=== PATIENT | male | born 2000 | race Caucasian/White ===

== ENCOUNTER → 2021-03-31 15:31 | Outpatient (CLI) | payer OTHER, SELFPAY ==
--- NOTE | 2021-03-31 | DI.RAD.S_ITS ---
PROCEDURE: XR TIBIA FIBULA LT 2V INDICATIONS: PAIN TECHNIQUE: 2 views of the tibia and fibula were acquired. COMPARISON: None. FINDINGS: Bones: No fractures or dislocations. No suspicious bony lesions. Soft tissues: No suspicious soft tissue calcifications or masses. IMPRESSION: No visualized acute fracture or dislocation. However, if clinical concern and/or pain persist, short interval imaging followup in 7-10 days is recommended, as occult injury cannot be definitively excluded. Dictated by: Cassie Castro M.D. on 03/31/2021 at 20:58 Approved by: Cassie Castro M.D. on 03/31/2021 at 20:59
== END ==
PROVIDERS: PCP Family Medicine; Referring Provider Family Medicine; Visit Provider Family Medicine
DX: M79.605 Pain in left leg (principal)
CPT/HCPCS: 73590

== ENCOUNTER → 2021-04-13 17:21 | Outpatient (CLI) | payer OTHER, SELFPAY ==
[2021-04-13 18:28] LABS: D Dimer 225 ng/mL (<230)
== END ==
PROVIDERS: PCP Family Medicine; Referring Provider Student in an Organized Health Care Education/Training Program; Visit Provider Student in an Organized Health Care Education/Training Program
DX: M79.605 Pain in left leg (principal)
CPT/HCPCS: 36415; 85379

== ENCOUNTER → 2023-05-24 16:21 | Outpatient (CLI) | payer BC, SELFPAY ==
--- NOTE | 2023-05-24 16:25 | DI.RAD.S_ITS ---
PROCEDURE: XR LUMBAR SPINE MIN 4V INDICATIONS: left back pain TECHNIQUE: 5 views of the lumbar spine were acquired, including bilateral oblique views. COMPARISON: None. FINDINGS: Bones: 5 nonrib-bearing vertebrae are present. Slight levoconvex curvature of the lumbar spine centered at L3. No vertebral body compression fractures. No suspicious bony lesions. Soft tissues: Overlying bowel gas pattern is normal. No suspicious soft tissue calcifications. Oblique images: No pars defects. IMPRESSION: 1. No acute bony abnormality. If clinical symptoms persist, consider cross-sectional imaging for further evaluation. 2. No significant degenerative changes. Dictated by: Kim Hawk M.D. on 05/24/2023 at 18:10 Approved by: Kim Hawk M.D. on 05/24/2023 at 18:12
== END ==
PROVIDERS: PCP Family Medicine; Referring Provider Family Medicine; Visit Provider Family Medicine
DX: M54.50 Low back pain, unspecified (principal); G89.29 Other chronic pain
CPT/HCPCS: 72110

== ENCOUNTER 2023-09-14 07:30 | Outpatient (RCR) | payer OTHER, SELFPAY ==
--- NOTE | 2023-07-04 15:30 | PT.OIE ---
Current Diagnoses Other lack of coordination (07/06/23) Weakness (07/06/23) Strain of muscle, fascia and tendon of lower back, initial encounter (07/06/23) Strain of muscle, fascia and tendon of lower back, subsequent encounter (07/06/23) Visit Care Team Role Provider Type Rome Lucas MD Attending Provider Physician Family Provider Primary Care Provider Referring Provider Specialty: Family Practice Address: [address] [place] [address], [facility] Email: [email or web address] Physical Therapy Initial Evaluation PT-OP-A Visit Information Start: 07/05/23 09:26 Freq: Status: Active Protocol: Document 07/04/23 07:30 NM (Rec: 07/05/23 09:42 NM [id number]) Out-Patient Physical Therapy Visit Information Visit Information Visit Type Initial Evaluation Visit Note 12 visits Visit Start Time 07:30 Visit Stop Time 08:15 Visit Number 1 Evaluation Information Evaluation Date 07/04/23 PT-OP-B Current Condition Start: 07/05/23 09:26 Freq: Status: Active Protocol: Document 07/04/23 07:30 NM (Rec: 07/05/23 09:42 NM [id number]) Current Condition History of Current Condition Onset Date March 2023 Current Complaints pain, movement limits History of Current Condition Pt presents with a work injury from mid2023. He states that the injury was low back pain then now radiates from L side of hip to ankle. He had a muscle relaxer and a steroid, which helped. He has pain mostly after walking around or putting pressure on his L thigh. States that back pain is primarily gone, but his leg pain is the most problematic (resolved in 3.5 weeks). Pt was injured when lifting from a crouched position, hit his back against rudder and shifted his weight on his back; he felt pain immediately and dropped to the ground; he continued working. 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 For his job , he needs to be able to crouch (move small spaces), flexibility, lifting heavy objects (130-150#). He has pain with extending his leg from hip flexion. Prior Treatments and Tests Radiographs 05/2023: no acute bony abnormalities or degenerative changes Treatment Goals Patient/Caregiver Goals work w/o pain Current Functional Impairments (Reported) Functional Limitations- Mobility/Gait 2-3 hr walking Functional Limitations- Work/School 8-10 hrs for 5 days/wk Functional Limitations- Recreation/ unable to perform leg workouts Hobbies (cardio ok)- strength training (leg press, calf raises, leg extension) after a specific weight and reps, 3x/ wk; currently unable to workout Functional Limitations- Other Reports 80-85% unable to perform normal activities at worst PT-OP-C Subjective Start: 07/05/23 09:26 Freq: Status: Active Protocol: Document 07/04/23 07:30 NM (Rec: 07/05/23 09:42 NM [id number]) OP-PT Subjective Patient Comments Patient Comments see hx above for pt report Patient Questionnaires Oswestry Low Back Index Oswestry Score 50 OP-PT Pain Assessment Location back Pain Location Details glute (lateral), L ankle ( lateral), L sided LBP Intensity 3 Scale Used Numeric (0 - 10) Description Aching Description- Other glute-achy, lateral ankle ( shooting) Frequency Frequent Radiating Location to leg and ankle Pain Aggravating Factors Position,Activity,Walking 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, IR w/ turning and pressure Pain Alleviating Factors Medication Patient Stated Pain Goal workout w/o pain, return to work w/o pain Home Pain Medication Use Pain Medications Used Yes: tylenol, muscle relaxer, migraine meds Home Pain Medication Frequency 1-2x/day PT-OP-E Functional Tests Start: 07/05/23 09:26 Freq: Status: Active Protocol: Document 07/04/23 07:30 NM (Rec: 07/05/23 09:42 NM [id number]) Functional Tests Other Forward Trunk Flexion Test Name of Test measured finger tip to floor Score 10 Comment increase in symptoms down legs PT-OP-F Manual Assessment Start: 07/05/23 09:26 Freq: Status: Active Protocol: Document 07/04/23 07:30 NM (Rec: 07/05/23 09:42 NM [id number]) Manual Assessments Soft Tissue Assessment Soft Tissue Mobility Assessment Increased hamstring tightness. Decreased hip flexor length. Increased tenderness of L hip and calf Joint Mobility Assessment Joint Mobility Assessment Hypomobility of lumbar spine, slight L deviation of lumbar spine. Limited hip mobility into flexion, decreased B ankle DF PT-OP-G Mobility & Gait Start: 07/05/23 09:26 Freq: Status: Active Protocol: Document 07/04/23 07:30 NM (Rec: 07/05/23 09:42 NM [id number]) OP Gait Assessment Gait Gait Assistance Required: Independent Distance (Feet) 150 Gait Deviations General Gait Pattern Antalgic,Lateral Trunk Lean Factors Limiting Gait Function Factors Limiting Gait Function Decreased Activity Tolerance, Limited Range of Motion,Pain Comments Gait Comments Demos R lateral trunk lean PT-OP-H Neuro Start: 07/05/23 09:26 Freq: Status: Active Protocol: Document 07/04/23 07:30 NM (Rec: 07/05/23 09:42 NM [id number]) Sensation Evaluation Comments Summary Comments BLE intact equally to light touch sensation Deep Tendon Reflex & Clonus Assessment Deep Tendon Reflex Bilateral Achilles Deep Tendon Reflex 1+ Diminished Bilateral Patellar Deep Tendon Reflex 2+ Normal PT-OP-J Posture/Palpation/Skin Start: 07/05/23 09:26 Freq: Status: Active Protocol: Document 07/04/23 07:30 NM (Rec: 07/05/23 09:42 NM [id number]) Posture Evaluation Position Standing Head/C-Spine Posture Forward Head L-Spine Posture Increased Lordosis,Shifted Right Pelvis Posture Anteriorly Tilted Weight Distribution Weight Shifted Right Hip Posture (L) Externally Rotated,(R) Externally Rotated Knee Posture (L) Genu Varus,(R) Genu Varus Palpation Assessment Location lumbar spine Palpation Findings Soft Tissue Tightness, Tenderness Palpation Details tenderness along L lateral spine, tightness of L lateral paraspinals No tenderness along midline spine Slight L deviation from midline along spine near L3 L leg Palpation Findings Edema,Tenderness Palpation Details tenderness along L calf in muscle belly tenderness along L glute/ piriformis, lateral hip PT-OP-K Range of Motion Start: 07/05/23 09:26 Freq: Status: Active Protocol: Document 07/04/23 07:30 NM (Rec: 07/05/23 09:42 NM [id number]) Lumbar Spine Range of Motion Lumbar Spine Active Percentage Flexion 75 Extension 100 Rotation Left 10 Rotation Right 6 Lateral Flexion Left 100 Lateral Flexion Right 100 ROM Limitations Soft Tissue Tightness Comments 10; tightness along L lateral leg with flexion Hip Goniometric Range of Motion Hip Left Flexion w/Knee Flexed 110 Internal Rotation 30 External Rotation 30 Comments 140 deg hamstring length Right Flexion w/Knee Flexed 105 Internal Rotation 25 External Rotation 35 Comments 140 deg hamstring length Ankle and Foot Goniometric Range of Motion Ankle and Foot Right Dorsiflexion with Knee Flexed 10 Plantarflexion 40 Left Dorsiflexion with Knee Flexed 8 Plantarflexion 40 PT-OP-L Special Tests Start: 07/05/23 09:26 Freq: Status: Active Protocol: Document 07/04/23 07:30 NM (Rec: 07/05/23 09:42 NM [id number]) Special Tests Lumbar Spine Special Tests Brice/Quadrant Test Results + Comments R 3D reproduces to L side Distraction Test Results + Slump Test Results + Comments bilateral Straight Leg Raise Test Results + Comments bilateral PT-OP-M Strength Start: 07/05/23 09:26 Freq: Status: Active Protocol: Document 07/04/23 07:30 NM (Rec: 07/05/23 09:42 NM [id number]) Trunk Strength Trunk Manual Muscle Testing Flexion 4+ Good+ Extension 4 Good Rotation Left 5 Normal Rotation Right 5 Normal Lateral Flexion Left 5 Normal Lateral Flexion Right 5 Normal Core Stabilization plank: 10 sec side plank B: 8 sec No pain reproduced but difficulty with stabilization Hip Strength Hip Manual Muscle Testing Left Flexion (L2) 4+ Good+ Extension (S1) 4 Good Abduction 4- Good- Adduction 4+ Good+ External Rotation 4+ Good+ Internal Rotation 4+ Good+ Comments IR resisted reproduces Right Flexion (L2) 4+ Good+ Extension (S1) 5 Normal Abduction 5 Normal Adduction 5 Normal External Rotation 5 Normal Internal Rotation 4+ Good+ Knee Strength Knee Manual Muscle Testing Left Flexion (S2) 5 Normal Extension (L3) 5 Normal Right Flexion (S2) 4+ Good+ Extension (L3) 4+ Good+ Ankle/Foot Strength Ankle and Foot Manual Muscle Testing Left Dorsiflexion (L4) 4 Good Plantarflexion (S1) 4 Good Right Dorsiflexion (L4) 4+ Good+ Plantarflexion (S1) 4+ Good+ PT-OP-Q Treatments Start: 07/05/23 09:26 Freq: Status: Active Protocol: Document 07/04/23 07:30 NM (Rec: 07/05/23 09:42 NM [id number]) Therapeutic Exercises Supine Exercises lumbar distraction Supine Exercise Name supine 90/90 with legs elevated bolster during pt education Side bilateral Reps/Minutes 8 minutes Self-Care/Home Management Treatment Education Patient Education Joint Protection,Pain Management Other Education Education on anatomy of spine, arthrokinematics, and symptom presentation. Education on spinal protection, limiting stretching due to nerve irritation, modalities and soft tissue mobilization for pain reduction PT-OP-T Assessment and Plan Start: 07/05/23 09:26 Freq: Status: Active Protocol: Document 07/04/23 07:30 NM (Rec: 07/05/23 09:42 NM [id number]) Physical Therapy Assessment Rehab Potential Rehabilitation Potential Good Evaluation Complexity Number of Personal Factors/Comorbidities 1-2 Number of Body Systems Impaired 1-2 Clinical Presentation at Evaluation Stable Impairments Impairments Activity Tolerance,Balance, Functional Activities, Functional Mobility,Gait,Pain, Posture,ROM,Sensation,Soft Tissue Mobility,Strength Goals Six Impairment return to work Short Term Goal (STG) Pt will report that he is able to perform at least 50% of job functions without increase in baseline pain STG Duration 6 weeks 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 STG Duration 6 weeks 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 Automatic Goal (LTG) Pt will be able to reach < 6 from the ground during forward trunk flexion test in order to demonstrate improvement in hamstring length and decrease neural tension. LTG Duration 12 weeks Four Impairment squats Impairment difficulty with maintaining squat position at work due to pain Short Term Goal (STG) Pt will be able to perform at least 10 squats without compensation or increase in baseline pain in order to perform necessary job requirements STG Duration 6 weeks Shelter Goal (LTG) Pt will be able to perform at least 20 squats with resistance and without compensation or increase in baseline pain in order to perform necessary job requirements LTG Duration 12 weeks Three Impairment strength Impairment L hip ext 4/5 and abd 4-/5 MMT Short Term Goal (STG) Pt will improve L hip ext and abduction strength to at least 4+/5 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 STG Duration 6 weeks 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 Automatic Goal (LTG) Pt will improve L hip ext and abduction strength to at least 5/5 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 LTG Duration 12 weeks Two Impairment strength, stabilization Impairment plank 8 seconds side plank, 10 seconds front plank on elbows Short Term Goal (STG) Pt will be able to perform a plank (full or modified) for at least 45 seconds without signs of instability or increase in baseline pain in order to demonstrate improved core strength for ADLs and work STG Duration 6 weeks 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 Automatic Goal (LTG) Pt will be able to perform a plank (full or modified) for at least 60 seconds without signs of instability or increase in baseline pain in order to demonstrate improved core strength for ADLs and work LTG Duration 12 weeks One Impairment HEP Impairment not performing HEP Short Term Goal (STG) Pt will report that he is performing HEP at least 2-3x/ wk in order to maximize progression with PT and promote independence with rehabilitation. 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 LTG Duration 12 weeks Assessment Summary Assessment Pt is a 23 y.o. male presenting with low back pain and L sided pain radiating down the LLE. Pain is likely discogenic and he also likely has nerve root involvement of L5-S1. He has positive Brice/ quadrant test, slump and straight leg raise. Symptoms are reduced with distraction. Pt has limitations in trunk flexion ROM. He is able to stabilize his trunk against resistance, but he demonstrates poor core stabilization. Currently, pt only able to hold plank for 8- 10 seconds without pain. Pt has increased tightness of B paraspinals and L glute/ piriformis. He has tenderness to palpation just lateral to midline of spine. Recent radiographs normal. PT educated pt on exam findings and plan of care. PT also educated pt on joint protection and pain reducation strategy with lumbar distraction, which pt found helpful. Pt would benefit from skilled PT for body mechanics training, flexibility training, and symptom reduction in order to improve activity tolerance. Physical Therapy Plan Frequency and Duration Frequency of Treatment 1-2x/wk Duration of treatment (weeks) 12 Plan of Care Start Date 07/04/23 Plan of Care End Date 09/29/23 Therapeutic Interventions Therapeutic Interventions Balance Training,Gait Training ,Home Exercise Program,Joint Mobilizations,Manual Therapy, Neuromuscular Re-education, Orthotic/Prosthetic Management ,Patient/Caregiver Education, Self-Care/Home Management, Sensory Integration,Soft Tissue Mobilization,Taping, Therapeutic Activities, Therapeutic Exercises Modalities Cold Pack/Ice Massage,Electric Stimulation,Hot Packs, Traction- Mechanical, Ultrasound Other Therapeutic Interventions pelvic realignment Next Visit Focus/Plan Next Visit Plan stretching: alfie, nerve glide, quad stretch, hip ER, calf stretch, core manual: low back, glutes
--- NOTE | 2023-07-06 12:56 | PT.OTN ---
Current Diagnoses Other lack of coordination (07/06/23) Weakness (07/06/23) Strain of muscle, fascia and tendon of lower back, initial encounter (07/06/23) Strain of muscle, fascia and tendon of lower back, subsequent encounter (07/06/23) Physical Therapy Treatment Note PT-OP-A Visit Information Start: 07/05/23 09:26 Freq: Status: Active Protocol: Document 07/06/23 07:31 NM (Rec: 07/06/23 08:16 NM [id number]) Out-Patient Physical Therapy Visit Information Visit Information Visit Type Treatment Note Visit Note 12 visits Visit Start Time 07:34 Visit Stop Time 08:15 Visit Number 04/03 Evaluation Information Evaluation Date 07/04/23 PT-OP-B Current Condition Start: 07/05/23 09:26 Freq: Status: Active Protocol: Document 07/04/23 07:30 NM (Rec: 07/05/23 09:42 NM [id number]) Current Condition History of Current Condition Onset Date March 2023 Current Complaints pain, movement limits History of Current Condition Pt presents with a work injury from [facility]2023. He states that the injury was low back pain then now radiates from L side of hip to ankle. He had a muscle relaxer and a steroid, which helped. He has pain mostly after walking around or putting pressure on his L thigh. States that back pain is primarily gone, but his leg pain is the most problematic (resolved in 3.5 weeks). Pt was injured when lifting from a crouched position, hit his back against rudder and shifted his weight on his back; he felt pain immediately and dropped to the ground; he continued working. 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 For his job , he needs to be able to crouch (move small spaces), flexibility, lifting heavy objects (130-150#). He has pain with extending his leg from hip flexion. Prior Treatments and Tests Radiographs 05/2023: no acute bony abnormalities or degenerative changes Treatment Goals Patient/Caregiver Goals work w/o pain Current Functional Impairments (Reported) Functional Limitations- Mobility/Gait 2-3 hr walking Functional Limitations- Work/School 8-10 hrs for 5 days/wk Functional Limitations- Recreation/ unable to perform leg workouts Hobbies (cardio ok)- strength training (leg press, calf raises, leg extension) after a specific weight and reps, 3x/ wk; currently unable to workout Functional Limitations- Other Reports 80-85% unable to perform normal activities at worst PT-OP-C Subjective Start: 07/05/23 09:26 Freq: Status: Active Protocol: Document 07/06/23 07:31 NM (Rec: 07/06/23 08:16 NM [id number]) OP-PT Subjective Patient Comments Patient Comments Pt reports no changes since evaluation. States no low back pain, only tightness in low back and legs. PT-OP-E Functional Tests Start: 07/05/23 09:26 Freq: Status: Active Protocol: Document 07/04/23 07:30 NM (Rec: 07/05/23 09:42 NM [id number]) Functional Tests Other Forward Trunk Flexion Test Name of Test measured finger tip to floor Score 10 Comment increase in symptoms down legs PT-OP-F Manual Assessment Start: 07/05/23 09:26 Freq: Status: Active Protocol: Document 07/04/23 07:30 NM (Rec: 07/05/23 09:42 NM [id number]) Manual Assessments Soft Tissue Assessment Soft Tissue Mobility Assessment Increased hamstring tightness. Decreased hip flexor length. Increased tenderness of L hip and calf Joint Mobility Assessment Joint Mobility Assessment Hypomobility of lumbar spine, slight L deviation of lumbar spine. Limited hip mobility into flexion, decreased B ankle DF PT-OP-G Mobility & Gait Start: 07/05/23 09:26 Freq: Status: Active Protocol: Document 07/04/23 07:30 NM (Rec: 07/05/23 09:42 NM [id number]) OP Gait Assessment Gait Gait Assistance Required: Independent Distance (Feet) 150 Gait Deviations General Gait Pattern Antalgic,Lateral Trunk Lean Factors Limiting Gait Function Factors Limiting Gait Function Decreased Activity Tolerance, Limited Range of Motion,Pain Comments Gait Comments Demos R lateral trunk lean PT-OP-H Neuro Start: 07/05/23 09:26 Freq: Status: Active Protocol: Document 07/04/23 07:30 NM (Rec: 07/05/23 09:42 NM [id number]) Sensation Evaluation Comments Summary Comments BLE intact equally to light touch sensation Deep Tendon Reflex & Clonus Assessment Deep Tendon Reflex Bilateral Achilles Deep Tendon Reflex 1+ Diminished Bilateral Patellar Deep Tendon Reflex 2+ Normal PT-OP-J Posture/Palpation/Skin Start: 07/05/23 09:26 Freq: Status: Active Protocol: Document 07/04/23 07:30 NM (Rec: 07/05/23 09:42 NM [id number]) Posture Evaluation Position Standing Head/C-Spine Posture Forward Head L-Spine Posture Increased Lordosis,Shifted Right Pelvis Posture Anteriorly Tilted Weight Distribution Weight Shifted Right Hip Posture (L) Externally Rotated,(R) Externally Rotated Knee Posture (L) Genu Varus,(R) Genu Varus Palpation Assessment Location lumbar spine Palpation Findings Soft Tissue Tightness, Tenderness Palpation Details tenderness along L lateral spine, tightness of L lateral paraspinals No tenderness along midline spine Slight L deviation from midline along spine near L3 L leg Palpation Findings Edema,Tenderness Palpation Details tenderness along L calf in muscle belly tenderness along L glute/ piriformis, lateral hip PT-OP-K Range of Motion Start: 07/05/23 09:26 Freq: Status: Active Protocol: Document 07/04/23 07:30 NM (Rec: 07/05/23 09:42 NM [id number]) Lumbar Spine Range of Motion Lumbar Spine Active Percentage Flexion 75 Extension 100 Rotation Left 10 Rotation Right 6 Lateral Flexion Left 100 Lateral Flexion Right 100 ROM Limitations Soft Tissue Tightness Comments 10; tightness along L lateral leg with flexion Hip Goniometric Range of Motion Hip Left Flexion w/Knee Flexed 110 Internal Rotation 30 External Rotation 30 Comments 140 deg hamstring length Right Flexion w/Knee Flexed 105 Internal Rotation 25 External Rotation 35 Comments 140 deg hamstring length Ankle and Foot Goniometric Range of Motion Ankle and Foot Right Dorsiflexion with Knee Flexed 10 Plantarflexion 40 Left Dorsiflexion with Knee Flexed 8 Plantarflexion 40 PT-OP-L Special Tests Start: 07/05/23 09:26 Freq: Status: Active Protocol: Document 07/04/23 07:30 NM (Rec: 07/05/23 09:42 NM [id number]) Special Tests Lumbar Spine Special Tests Brice/Quadrant Test Results + Comments R 3D reproduces to L side Distraction Test Results + Slump Test Results + Comments bilateral Straight Leg Raise Test Results + Comments bilateral PT-OP-M Strength Start: 07/05/23 09:26 Freq: Status: Active Protocol: Document 07/04/23 07:30 NM (Rec: 07/05/23 09:42 NM [id number]) Trunk Strength Trunk Manual Muscle Testing Flexion 4+ Good+ Extension 4 Good Rotation Left 5 Normal Rotation Right 5 Normal Lateral Flexion Left 5 Normal Lateral Flexion Right 5 Normal Core Stabilization plank: 10 sec side plank B: 8 sec No pain reproduced but difficulty with stabilization Hip Strength Hip Manual Muscle Testing Left Flexion (L2) 4+ Good+ Extension (S1) 4 Good Abduction 4- Good- Adduction 4+ Good+ External Rotation 4+ Good+ Internal Rotation 4+ Good+ Comments IR resisted reproduces Right Flexion (L2) 4+ Good+ Extension (S1) 5 Normal Abduction 5 Normal Adduction 5 Normal External Rotation 5 Normal Internal Rotation 4+ Good+ Knee Strength Knee Manual Muscle Testing Left Flexion (S2) 5 Normal Extension (L3) 5 Normal Right Flexion (S2) 4+ Good+ Extension (L3) 4+ Good+ Ankle/Foot Strength Ankle and Foot Manual Muscle Testing Left Dorsiflexion (L4) 4 Good Plantarflexion (S1) 4 Good Right Dorsiflexion (L4) 4+ Good+ Plantarflexion (S1) 4+ Good+ PT-OP-Q Treatments Start: 07/05/23 09:26 Freq: Status: Active Protocol: Document 07/06/23 07:31 NM (Rec: 07/06/23 08:16 NM [id number]) Therapeutic Exercises Supine Exercises TrA Supine Exercise Name 1. abdominal draw up/in, 2. repeated KTC, 3.heel taps from 90/90 alternatin Side bilateral Reps/Minutes 1. 1 minute w/ breathing, 2. 1 minute, 3. 2x10 Comments pain free, challenging w/ heel taps Sitting Exercises nerve glide Sitting Exercise Name w/ head and leg coord DF/PF Side bilateral Reps/Minutes 1x10 Comments increase pulling w/ glide so d /c Standing Exercises pallof Standing Exercise Name 1. pallof walkout, arms ext w/ anti-rot, 2. pallof press w/ squat Side bilateral Resistance lvl 5 and 6 together (4 bands) Reps/Minutes 1. 1x10 ea, 2. 2x15 Comments pain free, medium difficulty; cued for form modified pigeon stretch Standing Exercise Name leg in figure 4 elevated on table, slight trunk flexion Side bilateral Reps/Minutes 1x60 ea Comments reports good feedback with stretch; L more restricted than R calf stretch Standing Exercise Name 1. gastrocnemius, 2. soleus Side bilateral Equipment Used staggered stance at stairs Reps/Minutes 1x60 Comments pain free hip flexor stretch Standing Exercise Name foot elevated on 3rd stair step Side bilateral Reps/Minutes 1x60 Comments cued ppt Other Exercises self soft tissue mobilization Other Exercise Name piriformis, lumbar paraspinals Equipment Used racquetball in pillow case Reps/Minutes 3 minutes Comments MWM for piriformis; tender and restricted, added to HEP Self-Care/Home Management Treatment Education Patient Education Body Mechanics,Home Exercise Program,Pain Management Other Education Education on activity modification during work to prevent remaining in extended positions for periods of time HEP: calf stretch, pigeon stretch in standing, piriformis massage PT-OP-T Assessment and Plan Start: 07/05/23 09:26 Freq: Status: Active Protocol: Document 07/06/23 07:31 NM (Rec: 07/06/23 08:16 NM [id number]) Physical Therapy Assessment Goals Six Impairment return to work Short Term Goal (STG) Pt will report that he is able to perform at least 50% of job functions without increase in baseline pain STG Duration 6 weeks [facility] 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 STG Duration 6 weeks [employer] Goal (LTG) Pt will be able to reach < 6 from the ground during forward trunk flexion test in order to demonstrate improvement in hamstring length and decrease neural tension. LTG Duration 12 weeks Four Impairment squats Impairment difficulty with maintaining squat position at work due to pain Short Term Goal (STG) Pt will be able to perform at least 10 squats without compensation or increase in baseline pain in order to perform necessary job requirements STG Duration 6 weeks [facility] Goal (LTG) Pt will be able to perform at least 20 squats with resistance and without compensation or increase in baseline pain in order to perform necessary job requirements LTG Duration 12 weeks Three Impairment strength Impairment L hip ext 4/5 and abd 4-/5 MMT Short Term Goal (STG) Pt will improve L hip ext and abduction strength to at least 4+/5 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 STG Duration 6 weeks [facility] Goal (LTG) Pt will improve L hip ext and abduction strength to at least 5/5 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 LTG Duration 12 weeks Two Impairment strength, stabilization Impairment plank 8 seconds side plank, 10 seconds front plank on elbows Short Term Goal (STG) Pt will be able to perform a plank (full or modified) for at least 45 seconds without signs of instability or increase in baseline pain in order to demonstrate improved core strength for ADLs and work STG Duration 6 weeks [facility] Goal (LTG) Pt will be able to perform a plank (full or modified) for at least 60 seconds without signs of instability or increase in baseline pain in order to demonstrate improved core strength for ADLs and work LTG Duration 12 weeks One Impairment HEP Impairment not performing HEP Short Term Goal (STG) Pt will report that he is performing HEP at least 2-3x/ wk in order to maximize progression with PT and promote independence with rehabilitation. 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 LTG Duration 12 weeks Assessment Summary Assessment Pt tolerated session well. Initiated stretching and soft tissue mobilization to reduce tightness of L glutes/ piriformis. PT educated pt on activity modification at work and soft tissue mobilization as part of HEP. Pt challenged with core bracing during supine activities and against resistance during standing pallof press. Education on abdominal drawing up and in vs valsava maneuver for core bracing at work and during exercise. Pt would benefit form skilled PT for body mechanics training and to improve symptom management. Physical Therapy Plan Frequency and Duration Frequency of Treatment 1-2x/wk Duration of treatment (weeks) 12 Plan of Care Start Date 07/04/23 Plan of Care End Date 09/29/23 Therapeutic Interventions Therapeutic Interventions Balance Training,Gait Training ,Home Exercise Program,Joint Mobilizations,Manual Therapy, Neuromuscular Re-education, Orthotic/Prosthetic Management ,Patient/Caregiver Education, Self-Care/Home Management, Sensory Integration,Soft Tissue Mobilization,Taping, Therapeutic Activities, Therapeutic Exercises Modalities Cold Pack/Ice Massage,Electric Stimulation,Hot Packs, Traction- Mechanical, Ultrasound Other Therapeutic Interventions pelvic realignment Next Visit Focus/Plan Next Note Type Treatment Note Next Visit Plan Next session: manual and MWM to piriformisTrial child's pose with ER/IR bias, supine nerve glide (sciatic), deadlift hip hinge training, spinal distraction, hip ER stretch. Progress core: side planks (modified), full planks (add hip ext, abd as able) Focus on improving flexibility , flexion biased core. Avoid extension. stretching: hip ER manual: low back, glutes
--- NOTE | 2023-07-12 12:28 | PT.OTN ---
Current Diagnoses Other lack of coordination (07/12/23) Weakness (07/12/23) Strain of muscle, fascia and tendon of lower back, initial encounter (07/12/23) Strain of muscle, fascia and tendon of lower back, subsequent encounter (07/12/23) Physical Therapy Treatment Note PT-OP-A Visit Information Start: 07/05/23 09:26 Freq: Status: Active Protocol: Document 07/12/23 11:29 NBM (Rec: 07/12/23 12:28 NBM [id number]) Out-Patient Physical Therapy Visit Information Visit Information Visit Type Treatment Note Visit Note 12 visits Visit Start Time 11:24 Visit Stop Time 12:06 Visit Number 3 Number of FINAL FINISHER Visits 1 Evaluation Information Evaluation Date 07/04/23 PT-OP-B Current Condition Start: 07/05/23 09:26 Freq: Status: Active Protocol: Document 07/04/23 07:30 NM (Rec: 07/05/23 09:42 NM [id number]) Current Condition History of Current Condition Onset Date March 2023 Current Complaints pain, movement limits History of Current Condition Pt presents with a work injury from [facility]2023. He states that the injury was low back pain then now radiates from L side of hip to ankle. He had a muscle relaxer and a steroid, which helped. He has pain mostly after walking around or putting pressure on his L thigh. States that back pain is primarily gone, but his leg pain is the most problematic (resolved in 3.5 weeks). Pt was injured when lifting from a crouched position, hit his back against rudder and shifted his weight on his back; he felt pain immediately and dropped to the ground; he continued working. 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 For his job , he needs to be able to crouch (move small spaces), flexibility, lifting heavy objects (130-150#). He has pain with extending his leg from hip flexion. Prior Treatments and Tests Radiographs 05/2023: no acute bony abnormalities or degenerative changes Treatment Goals Patient/Caregiver Goals work w/o pain Current Functional Impairments (Reported) Functional Limitations- Mobility/Gait 2-3 hr walking Functional Limitations- Work/School 8-10 hrs for 5 days/wk Functional Limitations- Recreation/ unable to perform leg workouts Hobbies (cardio ok)- strength training (leg press, calf raises, leg extension) after a specific weight and reps, 3x/ wk; currently unable to workout Functional Limitations- Other Reports 80-85% unable to perform normal activities at worst PT-OP-C Subjective Start: 07/05/23 09:26 Freq: Status: Active Protocol: Document 07/12/23 11:29 NBM (Rec: 07/12/23 12:28 NBM [id number]) OP-PT Subjective Patient Comments Patient Comments Pt reports no new changes. He' s been working all day and reports leg pain 4/10. Noticeably irritating. He can 't modify activity at work but has been stretching more and he'll be less time-constrained at work after . He'll get raquetball for self- massage after this weekend. PT-OP-E Functional Tests Start: 07/05/23 09:26 Freq: Status: Active Protocol: Document 07/04/23 07:30 NM (Rec: 07/05/23 09:42 NM [id number]) Functional Tests Other Forward Trunk Flexion Test Name of Test measured finger tip to floor Score 10 Comment increase in symptoms down legs PT-OP-F Manual Assessment Start: 07/05/23 09:26 Freq: Status: Active Protocol: Document 07/04/23 07:30 NM (Rec: 07/05/23 09:42 NM [id number]) Manual Assessments Soft Tissue Assessment Soft Tissue Mobility Assessment Increased hamstring tightness. Decreased hip flexor length. Increased tenderness of L hip and calf Joint Mobility Assessment Joint Mobility Assessment Hypomobility of lumbar spine, slight L deviation of lumbar spine. Limited hip mobility into flexion, decreased B ankle DF PT-OP-G Mobility & Gait Start: 07/05/23 09:26 Freq: Status: Active Protocol: Document 07/04/23 07:30 NM (Rec: 07/05/23 09:42 NM [id number]) OP Gait Assessment Gait Gait Assistance Required: Independent Distance (Feet) 150 Gait Deviations General Gait Pattern Antalgic,Lateral Trunk Lean Factors Limiting Gait Function Factors Limiting Gait Function Decreased Activity Tolerance, Limited Range of Motion,Pain Comments Gait Comments Demos R lateral trunk lean PT-OP-H Neuro Start: 07/05/23 09:26 Freq: Status: Active Protocol: Document 07/04/23 07:30 NM (Rec: 07/05/23 09:42 NM [id number]) Sensation Evaluation Comments Summary Comments BLE intact equally to light touch sensation Deep Tendon Reflex & Clonus Assessment Deep Tendon Reflex Bilateral Achilles Deep Tendon Reflex 1+ Diminished Bilateral Patellar Deep Tendon Reflex 2+ Normal PT-OP-J Posture/Palpation/Skin Start: 07/05/23 09:26 Freq: Status: Active Protocol: Document 07/04/23 07:30 NM (Rec: 07/05/23 09:42 NM [id number]) Posture Evaluation Position Standing Head/C-Spine Posture Forward Head L-Spine Posture Increased Lordosis,Shifted Right Pelvis Posture Anteriorly Tilted Weight Distribution Weight Shifted Right Hip Posture (L) Externally Rotated,(R) Externally Rotated Knee Posture (L) Genu Varus,(R) Genu Varus Palpation Assessment Location lumbar spine Palpation Findings Soft Tissue Tightness, Tenderness Palpation Details tenderness along L lateral spine, tightness of L lateral paraspinals No tenderness along midline spine Slight L deviation from midline along spine near L3 L leg Palpation Findings Edema,Tenderness Palpation Details tenderness along L calf in muscle belly tenderness along L glute/ piriformis, lateral hip PT-OP-K Range of Motion Start: 07/05/23 09:26 Freq: Status: Active Protocol: Document 07/04/23 07:30 NM (Rec: 07/05/23 09:42 NM [id number]) Lumbar Spine Range of Motion Lumbar Spine Active Percentage Flexion 75 Extension 100 Rotation Left 10 Rotation Right 6 Lateral Flexion Left 100 Lateral Flexion Right 100 ROM Limitations Soft Tissue Tightness Comments 10; tightness along L lateral leg with flexion Hip Goniometric Range of Motion Hip Left Flexion w/Knee Flexed 110 Internal Rotation 30 External Rotation 30 Comments 140 deg hamstring length Right Flexion w/Knee Flexed 105 Internal Rotation 25 External Rotation 35 Comments 140 deg hamstring length Ankle and Foot Goniometric Range of Motion Ankle and Foot Right Dorsiflexion with Knee Flexed 10 Plantarflexion 40 Left Dorsiflexion with Knee Flexed 8 Plantarflexion 40 PT-OP-L Special Tests Start: 07/05/23 09:26 Freq: Status: Active Protocol: Document 07/04/23 07:30 NM (Rec: 07/05/23 09:42 NM [id number]) Special Tests Lumbar Spine Special Tests Brice/Quadrant Test Results + Comments R 3D reproduces to L side Distraction Test Results + Slump Test Results + Comments bilateral Straight Leg Raise Test Results + Comments bilateral PT-OP-M Strength Start: 07/05/23 09:26 Freq: Status: Active Protocol: Document 07/04/23 07:30 NM (Rec: 07/05/23 09:42 NM [id number]) Trunk Strength Trunk Manual Muscle Testing Flexion 4+ Good+ Extension 4 Good Rotation Left 5 Normal Rotation Right 5 Normal Lateral Flexion Left 5 Normal Lateral Flexion Right 5 Normal Core Stabilization plank: 10 sec side plank B: 8 sec No pain reproduced but difficulty with stabilization Hip Strength Hip Manual Muscle Testing Left Flexion (L2) 4+ Good+ Extension (S1) 4 Good Abduction 4- Good- Adduction 4+ Good+ External Rotation 4+ Good+ Internal Rotation 4+ Good+ Comments IR resisted reproduces Right Flexion (L2) 4+ Good+ Extension (S1) 5 Normal Abduction 5 Normal Adduction 5 Normal External Rotation 5 Normal Internal Rotation 4+ Good+ Knee Strength Knee Manual Muscle Testing Left Flexion (S2) 5 Normal Extension (L3) 5 Normal Right Flexion (S2) 4+ Good+ Extension (L3) 4+ Good+ Ankle/Foot Strength Ankle and Foot Manual Muscle Testing Left Dorsiflexion (L4) 4 Good Plantarflexion (S1) 4 Good Right Dorsiflexion (L4) 4+ Good+ Plantarflexion (S1) 4+ Good+ PT-OP-Q Treatments Start: 07/05/23 09:26 Freq: Status: Active Protocol: Document 07/12/23 11:29 NBM (Rec: 07/12/23 12:28 NB [id number]) Therapeutic Exercises Supine Exercises TrA Supine Exercise Name 1. abd draw up/in 2. BKFO Side bilateral Equipment Used self-monitoring TrA medial to ASIS Reps/Minutes 1. 1' w/ breathing 2. 5' Comments pain free Standing Exercises pallof Standing Exercise Name 1. pallof walkout, arms ext w/ anti-rot, 2. pallof press w/ squat Side bilateral Resistance lvl 5 and 6 together (4 bands) Reps/Minutes 1. 1x10 ea, 2. 2x10 Comments increased difficulty when cued for breath; cued for hip hinge modified pigeon stretch Standing Exercise Name leg in figure 4 elevated on table, slight trunk flexion Side bilateral Reps/Minutes 1x60 ea Comments L more restricted than R calf stretch Standing Exercise Name 1. gastrocnemius, 2. soleus Side bilateral Equipment Used staggered stance at stairs Reps/Minutes 1x60 Comments pain free hip flexor stretch Standing Exercise Name foot elevated on 3rd stair step Side bilateral Reps/Minutes 1x60 Comments cued ppt Self-Care/Home Management Treatment Education Patient Education Body Mechanics,Home Exercise Program,Pain Management Other Education Edu re: Transverse abdominis m . anatomy and interrelationship of core with diaphragm and pelvic floor and importance of breathwork. Pt i/s in self-monitoring appropriate TrA activation medial to ASIS. Added to HEP: BKFO w/ TrA self -monitoring - HO declined. PT-OP-T Assessment and Plan Start: 07/05/23 09:26 Freq: Status: Active Protocol: Document 07/12/23 11:29 [facility] (Rec: 07/12/23 12:28 [facility] [id number]) Physical Therapy Assessment Goals Six Impairment return to work Short Term Goal (STG) Pt will report that he is able to perform at least 50% of job functions without increase in baseline pain STG Duration 6 weeks Skilled Nursing 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 STG Duration 6 weeks Planer Setter Goal (LTG) Pt will be able to reach < 6 from the ground during forward trunk flexion test in order to demonstrate improvement in hamstring length and decrease neural tension. LTG Duration 12 weeks Four Impairment squats Impairment difficulty with maintaining squat position at work due to pain Short Term Goal (STG) Pt will be able to perform at least 10 squats without compensation or increase in baseline pain in order to perform necessary job requirements STG Duration 6 weeks Skilled Nursing Goal (LTG) Pt will be able to perform at least 20 squats with resistance and without compensation or increase in baseline pain in order to perform necessary job requirements LTG Duration 12 weeks Three Impairment strength Impairment L hip ext 4/5 and abd 4-/5 MMT Short Term Goal (STG) Pt will improve L hip ext and abduction strength to at least 4+/5 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 STG Duration 6 weeks Skilled Nursing Goal (LTG) Pt will improve L hip ext and abduction strength to at least 5/5 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 LTG Duration 12 weeks Two Impairment strength, stabilization Impairment plank 8 seconds side plank, 10 seconds front plank on elbows Short Term Goal (STG) Pt will be able to perform a plank (full or modified) for at least 45 seconds without signs of instability or increase in baseline pain in order to demonstrate improved core strength for ADLs and work STG Duration 6 weeks Planer Setter Goal (LTG) Pt will be able to perform a plank (full or modified) for at least 60 seconds without signs of instability or increase in baseline pain in order to demonstrate improved core strength for ADLs and work LTG Duration 12 weeks One Impairment HEP Impairment not performing HEP Short Term Goal (STG) Pt will report that he is performing HEP at least 2-3x/ wk in order to maximize progression with PT and promote independence with rehabilitation. 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 LTG Duration 12 weeks Assessment Summary Assessment Ruy requires cues for breath with exercises and appropriate TrA activation. Edu re: Transverse abdominis m . anatomy w/ visual aids and interrelationship of core with diaphragm and pelvic floor and importance of breathwork. Pt i/s in self-monitoring appropriate TrA activation medial to ASIS and demos improved self-awareness w/ breath and with BKFO ex. Added BKFO to HEP - HO declined. Physical Therapy Plan Frequency and Duration Frequency of Treatment 1-2x/wk Duration of treatment (weeks) 12 Plan of Care Start Date 07/04/23 Plan of Care End Date 09/29/23 Therapeutic Interventions Therapeutic Interventions Balance Training,Gait Training ,Home Exercise Program,Joint Mobilizations,Manual Therapy, Neuromuscular Re-education, Orthotic/Prosthetic Management ,Patient/Caregiver Education, Self-Care/Home Management, Sensory Integration,Soft Tissue Mobilization,Taping, Therapeutic Activities, Therapeutic Exercises Modalities Cold Pack/Ice Massage,Electric Stimulation,Hot Packs, Traction- Mechanical, Ultrasound Other Therapeutic Interventions pelvic realignment Next Visit Focus/Plan Next Note Type Treatment Note Next Visit Plan Next session: manual and MWM to piriformisTrial child's pose with ER/IR bias, supine nerve glide (sciatic), deadlift hip hinge training, spinal distraction, hip ER stretch. Progress core: side planks (modified), full planks (add hip ext, abd as able) Focus on improving flexibility , flexion biased core. Avoid extension. stretching: hip ER manual: low back, glutes
--- NOTE | 2023-07-14 09:02 | PT.OTN ---
Current Diagnoses Other lack of coordination (07/14/23) Weakness (07/14/23) Strain of muscle, fascia and tendon of lower back, initial encounter (07/14/23) Strain of muscle, fascia and tendon of lower back, subsequent encounter (07/14/23) Physical Therapy Treatment Note PT-OP-A Visit Information Start: 07/05/23 09:26 Freq: Status: Active Protocol: Document 07/14/23 08:19 NM (Rec: 07/14/23 09:02 NM [id number]) Out-Patient Physical Therapy Visit Information Visit Information Visit Type Treatment Note Visit Note 12 visits Visit Start Time 08:19 Visit Stop Time 08:59 Visit Number 06/01 Evaluation Information Evaluation Date 07/04/23 PT-OP-B Current Condition Start: 07/05/23 09:26 Freq: Status: Active Protocol: Document 07/04/23 07:30 NM (Rec: 07/05/23 09:42 NM [id number]) Current Condition History of Current Condition Onset Date March 2023 Current Complaints pain, movement limits History of Current Condition Pt presents with a [facility] He states that the injury was low back pain then now radiates from L side of hip to ankle. He had a muscle relaxer and a steroid, which helped. He has pain mostly after walking around or putting pressure on his L thigh. States that back pain is primarily gone, but his leg pain is the most problematic (resolved in 3.5 weeks). Pt was injured when lifting from a crouched position, hit his back against rudder and shifted his weight on his back; he felt pain immediately and dropped to the ground; he continued working. 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 For his job , he needs to be able to crouch (move small spaces), flexibility, lifting heavy objects (130-150#). He has pain with extending his leg from hip flexion. Prior Treatments and Tests Radiographs 05/2023: no acute bony abnormalities or degenerative changes Treatment Goals Patient/Caregiver Goals work w/o pain Current Functional Impairments (Reported) Functional Limitations- Mobility/Gait 2-3 hr walking Functional Limitations- Work/School 8-10 hrs for 5 days/wk Functional Limitations- Recreation/ unable to perform leg workouts Hobbies (cardio ok)- strength training (leg press, calf raises, leg extension) after a specific weight and reps, 3x/ wk; currently unable to workout Functional Limitations- Other Reports 80-85% unable to perform normal activities at worst PT-OP-C Subjective Start: 07/05/23 09:26 Freq: Status: Active Protocol: Document 07/14/23 08:19 NM (Rec: 07/14/23 09:02 NM [id number]) OP-PT Subjective Patient Comments Patient Comments Pt reports legs have been aching, had a 60 hr work week. Pt reports that exercises make him sore but then everything relaxes and L leg lets up. States getting only 25 hr of sleep PT-OP-E Functional Tests Start: 07/05/23 09:26 Freq: Status: Active Protocol: Document 07/04/23 07:30 NM (Rec: 07/05/23 09:42 NM [id number]) Functional Tests Other Forward Trunk Flexion Test Name of Test measured finger tip to floor Score 10 Comment increase in symptoms down legs PT-OP-F Manual Assessment Start: 07/05/23 09:26 Freq: Status: Active Protocol: Document 07/04/23 07:30 NM (Rec: 07/05/23 09:42 NM [id number]) Manual Assessments Soft Tissue Assessment Soft Tissue Mobility Assessment Increased hamstring tightness. Decreased hip flexor length. Increased tenderness of L hip and calf Joint Mobility Assessment Joint Mobility Assessment Hypomobility of lumbar spine, slight L deviation of lumbar spine. Limited hip mobility into flexion, decreased B ankle DF PT-OP-G Mobility & Gait Start: 07/05/23 09:26 Freq: Status: Active Protocol: Document 07/04/23 07:30 NM (Rec: 07/05/23 09:42 NM [id number]) OP Gait Assessment Gait Gait Assistance Required: Independent Distance (Feet) 150 Gait Deviations General Gait Pattern Antalgic,Lateral Trunk Lean Factors Limiting Gait Function Factors Limiting Gait Function Decreased Activity Tolerance, Limited Range of Motion,Pain Comments Gait Comments Demos R lateral trunk lean PT-OP-H Neuro Start: 07/05/23 09:26 Freq: Status: Active Protocol: Document 07/04/23 07:30 NM (Rec: 07/05/23 09:42 NM [id number]) Sensation Evaluation Comments Summary Comments BLE intact equally to light touch sensation Deep Tendon Reflex & Clonus Assessment Deep Tendon Reflex Bilateral Achilles Deep Tendon Reflex 1+ Diminished Bilateral Patellar Deep Tendon Reflex 2+ Normal PT-OP-J Posture/Palpation/Skin Start: 07/05/23 09:26 Freq: Status: Active Protocol: Document 07/04/23 07:30 NM (Rec: 07/05/23 09:42 NM [id number]) Posture Evaluation Position Standing Head/C-Spine Posture Forward Head L-Spine Posture Increased Lordosis,Shifted Right Pelvis Posture Anteriorly Tilted Weight Distribution Weight Shifted Right Hip Posture (L) Externally Rotated,(R) Externally Rotated Knee Posture (L) Genu Varus,(R) Genu Varus Palpation Assessment Location lumbar spine Palpation Findings Soft Tissue Tightness, Tenderness Palpation Details tenderness along L lateral spine, tightness of L lateral paraspinals No tenderness along midline spine Slight L deviation from midline along spine near L3 L leg Palpation Findings Edema,Tenderness Palpation Details tenderness along L calf in muscle belly tenderness along L glute/ piriformis, lateral hip PT-OP-K Range of Motion Start: 07/05/23 09:26 Freq: Status: Active Protocol: Document 07/04/23 07:30 NM (Rec: 07/05/23 09:42 NM [id number]) Lumbar Spine Range of Motion Lumbar Spine Active Percentage Flexion 75 Extension 100 Rotation Left 10 Rotation Right 6 Lateral Flexion Left 100 Lateral Flexion Right 100 ROM Limitations Soft Tissue Tightness Comments 10; tightness along L lateral leg with flexion Hip Goniometric Range of Motion Hip Left Flexion w/Knee Flexed 110 Internal Rotation 30 External Rotation 30 Comments 140 deg hamstring length Right Flexion w/Knee Flexed 105 Internal Rotation 25 External Rotation 35 Comments 140 deg hamstring length Ankle and Foot Goniometric Range of Motion Ankle and Foot Right Dorsiflexion with Knee Flexed 10 Plantarflexion 40 Left Dorsiflexion with Knee Flexed 8 Plantarflexion 40 PT-OP-L Special Tests Start: 07/05/23 09:26 Freq: Status: Active Protocol: Document 07/04/23 07:30 NM (Rec: 07/05/23 09:42 NM [id number]) Special Tests Lumbar Spine Special Tests Brice/Quadrant Test Results + Comments R 3D reproduces to L side Distraction Test Results + Slump Test Results + Comments bilateral Straight Leg Raise Test Results + Comments bilateral PT-OP-M Strength Start: 07/05/23 09:26 Freq: Status: Active Protocol: Document 07/04/23 07:30 NM (Rec: 07/05/23 09:42 NM [id number]) Trunk Strength Trunk Manual Muscle Testing Flexion 4+ Good+ Extension 4 Good Rotation Left 5 Normal Rotation Right 5 Normal Lateral Flexion Left 5 Normal Lateral Flexion Right 5 Normal Core Stabilization plank: 10 sec side plank B: 8 sec No pain reproduced but difficulty with stabilization Hip Strength Hip Manual Muscle Testing Left Flexion (L2) 4+ Good+ Extension (S1) 4 Good Abduction 4- Good- Adduction 4+ Good+ External Rotation 4+ Good+ Internal Rotation 4+ Good+ Comments IR resisted reproduces Right Flexion (L2) 4+ Good+ Extension (S1) 5 Normal Abduction 5 Normal Adduction 5 Normal External Rotation 5 Normal Internal Rotation 4+ Good+ Knee Strength Knee Manual Muscle Testing Left Flexion (S2) 5 Normal Extension (L3) 5 Normal Right Flexion (S2) 4+ Good+ Extension (L3) 4+ Good+ Ankle/Foot Strength Ankle and Foot Manual Muscle Testing Left Dorsiflexion (L4) 4 Good Plantarflexion (S1) 4 Good Right Dorsiflexion (L4) 4+ Good+ Plantarflexion (S1) 4+ Good+ PT-OP-Q Treatments Start: 07/05/23 09:26 Freq: Status: Active Protocol: Document 07/14/23 08:19 NM (Rec: 07/14/23 09:02 NM [id number]) Therapeutic Exercises Supine Exercises nerve glide Supine Exercise Name 1. DF/PF (w/ knee flex/ext), 2 . hip ADD with DF/PF (knee flex/ext) Side left Equipment Used mat on floor Reps/Minutes 1x30 ea with breathwork Comments reports LLE feels looser TrA Supine Exercise Name abd draw up/in w/ 1. BKFO, 2. leg ext Side bilateral Equipment Used self-monitoring TrA medial to ASIS Reps/Minutes 1x10 ea Comments pain free; improved core brace w/ cues Other Exercises hip stretching Other Exercise Name 1. floor pigeon stretch, 2. 1/ 2 kneel hip flexor stretch Side bilateral Equipment Used mat on floor Reps/Minutes 20 breaths ea self soft tissue mobilization Other Exercise Name MWM: piriformis (hip ER/IR), OI (hip flex ER/IR) Equipment Used racquetball, mat on floor Reps/Minutes 1x10 Comments reports relief afterward Self-Care/Home Management Treatment Education Patient Education Home Exercise Program Other Education HEP- nerve glide in supine ( sciatic, sural) PT-OP-T Assessment and Plan Start: 07/05/23 09:26 Freq: Status: Active Protocol: Document 07/14/23 08:19 NM (Rec: 07/14/23 09:02 NM [id number]) Physical Therapy Assessment Goals Six Impairment return to work Short Term Goal (STG) Pt will report that he is able to perform at least 50% of job functions without increase in baseline pain STG Duration 6 weeks Halfway 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 STG Duration 6 weeks Halfway Goal (LTG) Pt will be able to reach < 6 from the ground during forward trunk flexion test in order to demonstrate improvement in hamstring length and decrease neural tension. LTG Duration 12 weeks Four Impairment squats Impairment difficulty with maintaining squat position at work due to pain Short Term Goal (STG) Pt will be able to perform at least 10 squats without compensation or increase in baseline pain in order to perform necessary job requirements STG Duration 6 weeks Halfway Goal (LTG) Pt will be able to perform at least 20 squats with resistance and without compensation or increase in baseline pain in order to perform necessary job requirements LTG Duration 12 weeks Three Impairment strength Impairment L hip ext 4/5 and abd 4-/5 MMT Short Term Goal (STG) Pt will improve L hip ext and abduction strength to at least 4+/5 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 STG Duration 6 weeks Halfway Goal (LTG) Pt will improve L hip ext and abduction strength to at least 5/5 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 LTG Duration 12 weeks Two Impairment strength, stabilization Impairment plank 8 seconds side plank, 10 seconds front plank on elbows Short Term Goal (STG) Pt will be able to perform a plank (full or modified) for at least 45 seconds without signs of instability or increase in baseline pain in order to demonstrate improved core strength for ADLs and work STG Duration 6 weeks Halfway Goal (LTG) Pt will be able to perform a plank (full or modified) for at least 60 seconds without signs of instability or increase in baseline pain in order to demonstrate improved core strength for ADLs and work LTG Duration 12 weeks One Impairment HEP Impairment not performing HEP Short Term Goal (STG) Pt will report that he is performing HEP at least 2-3x/ wk in order to maximize progression with PT and promote independence with rehabilitation. STG Duration 6 weeks Halfway Goal (LTG) Pt will report compliance with HEP at least 3x/wk in order to promote independence and transition into maintenance program after discharge from PT. LTG Duration 12 weeks Assessment Summary Assessment Pt tolerated session well and had good response to supine nerve glides. Continued with improving glute/piriformis length and hip mobility. Progressed to floor pigeon stretch and initiating mobilization with movement of OI along with piriformis. Continued with improving neuromotor control of core in supine. Pt requires tactile cues for abdominal bracing, but demos improved breath work as reps progress. Pt would benefit from skilled PT for lumbar/core strengthening and flexibility in order to reduce symptoms and improve activity tolerance. Physical Therapy Plan Frequency and Duration Frequency of Treatment 1-2x/wk Duration of treatment (weeks) 12 Plan of Care Start Date 07/04/23 Plan of Care End Date 09/29/23 Therapeutic Interventions Therapeutic Interventions Balance Training,Gait Training ,Home Exercise Program,Joint Mobilizations,Manual Therapy, Neuromuscular Re-education, Orthotic/Prosthetic Management ,Patient/Caregiver Education, Self-Care/Home Management, Sensory Integration,Soft Tissue Mobilization,Taping, Therapeutic Activities, Therapeutic Exercises Modalities Cold Pack/Ice Massage,Electric Stimulation,Hot Packs, Traction- Mechanical, Ultrasound Other Therapeutic Interventions pelvic realignment Next Visit Focus/Plan Next Note Type Treatment Note Next Visit Plan Review tolerance to nerve glide, pigeon stretch; Hip hinge, quad ext, dying bug, side plank, mod plank on counter Next session: manual and MWM to piriformis Progress core: side planks ( modified), full planks (add hip ext, abd as able) Focus on improving flexibility , flexion biased core. Avoid extension. stretching: hip ER manual: low back, glutes
--- NOTE | 2023-07-19 08:45 | PT.OTN ---
Current Diagnoses Other lack of coordination (07/19/23) Weakness (07/19/23) Strain of muscle, fascia and tendon of lower back, initial encounter (07/19/23) Strain of muscle, fascia and tendon of lower back, subsequent encounter (07/19/23) Physical Therapy Treatment Note PT-OP-A Visit Information Start: 07/05/23 09:26 Freq: Status: Active Protocol: Document 07/19/23 07:32 NM (Rec: 07/19/23 08:45 NM [id number]) Out-Patient Physical Therapy Visit Information Visit Information Visit Type Treatment Note Visit Note 12 visits Visit Start Time 07:33 Visit Stop Time 08:13 Visit Number 07/01 Evaluation Information Evaluation Date 07/04/23 PT-OP-B Current Condition Start: 07/05/23 09:26 Freq: Status: Active Protocol: Document 07/04/23 07:30 NM (Rec: 07/05/23 09:42 NM [id number]) Current Condition History of Current Condition Onset Date March 2023 Current Complaints pain, movement limits History of Current Condition Pt presents with a work injury from [facility]2023. He states that the injury was low back pain then now radiates from L side of hip to ankle. He had a muscle relaxer and a steroid, which helped. He has pain mostly after walking around or putting pressure on his L thigh. States that back pain is primarily gone, but his leg pain is the most problematic (resolved in 3.5 weeks). Pt was injured when lifting from a crouched position, hit his back against rudder and shifted his weight on his back; he felt pain immediately and dropped to the ground; he continued working. 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 For his job , he needs to be able to crouch (move small spaces), flexibility, lifting heavy objects (130-150#). He has pain with extending his leg from hip flexion. Prior Treatments and Tests Radiographs 05/2023: no acute bony abnormalities or degenerative changes Treatment Goals Patient/Caregiver Goals work w/o pain Current Functional Impairments (Reported) Functional Limitations- Mobility/Gait 2-3 hr walking Functional Limitations- Work/School 8-10 hrs for 5 days/wk Functional Limitations- Recreation/ unable to perform leg workouts Hobbies (cardio ok)- strength training (leg press, calf raises, leg extension) after a specific weight and reps, 3x/ wk; currently unable to workout Functional Limitations- Other Reports 80-85% unable to perform normal activities at worst PT-OP-C Subjective Start: 07/05/23 09:26 Freq: Status: Active Protocol: Document 07/19/23 07:32 NM (Rec: 07/19/23 08:45 NM [id number]) OP-PT Subjective Patient Comments Patient Comments Pt reports that he got more sleep over the weekend, but his body is sore overall from working. States that his back is feeling much better. He states it aches less, nothing stressed it over the long weekend. States that the legs feels less achy, only 2/10 over the weekend. States that he feels like he is improving. Nerve glide makes his legs feel better several hours later but not immediately, definitely not worse PT-OP-E Functional Tests Start: 07/05/23 09:26 Freq: Status: Active Protocol: Document 07/04/23 07:30 NM (Rec: 07/05/23 09:42 NM [id number]) Functional Tests Other Forward Trunk Flexion Test Name of Test measured finger tip to floor Score 10 Comment increase in symptoms down legs PT-OP-F Manual Assessment Start: 07/05/23 09:26 Freq: Status: Active Protocol: Document 07/04/23 07:30 NM (Rec: 07/05/23 09:42 NM [id number]) Manual Assessments Soft Tissue Assessment Soft Tissue Mobility Assessment Increased hamstring tightness. Decreased hip flexor length. Increased tenderness of L hip and calf Joint Mobility Assessment Joint Mobility Assessment Hypomobility of lumbar spine, slight L deviation of lumbar spine. Limited hip mobility into flexion, decreased B ankle DF PT-OP-G Mobility & Gait Start: 07/05/23 09:26 Freq: Status: Active Protocol: Document 07/04/23 07:30 NM (Rec: 07/05/23 09:42 NM [id number]) OP Gait Assessment Gait Gait Assistance Required: Independent Distance (Feet) 150 Gait Deviations General Gait Pattern Antalgic,Lateral Trunk Lean Factors Limiting Gait Function Factors Limiting Gait Function Decreased Activity Tolerance, Limited Range of Motion,Pain Comments Gait Comments Demos R lateral trunk lean PT-OP-H Neuro Start: 07/05/23 09:26 Freq: Status: Active Protocol: Document 07/04/23 07:30 NM (Rec: 07/05/23 09:42 NM [id number]) Sensation Evaluation Comments Summary Comments BLE intact equally to light touch sensation Deep Tendon Reflex & Clonus Assessment Deep Tendon Reflex Bilateral Achilles Deep Tendon Reflex 1+ Diminished Bilateral Patellar Deep Tendon Reflex 2+ Normal PT-OP-J Posture/Palpation/Skin Start: 07/05/23 09:26 Freq: Status: Active Protocol: Document 07/04/23 07:30 NM (Rec: 07/05/23 09:42 NM [id number]) Posture Evaluation Position Standing Head/C-Spine Posture Forward Head L-Spine Posture Increased Lordosis,Shifted Right Pelvis Posture Anteriorly Tilted Weight Distribution Weight Shifted Right Hip Posture (L) Externally Rotated,(R) Externally Rotated Knee Posture (L) Genu Varus,(R) Genu Varus Palpation Assessment Location lumbar spine Palpation Findings Soft Tissue Tightness, Tenderness Palpation Details tenderness along L lateral spine, tightness of L lateral paraspinals No tenderness along midline spine Slight L deviation from midline along spine near L3 L leg Palpation Findings Edema,Tenderness Palpation Details tenderness along L calf in muscle belly tenderness along L glute/ piriformis, lateral hip PT-OP-K Range of Motion Start: 07/05/23 09:26 Freq: Status: Active Protocol: Document 07/04/23 07:30 NM (Rec: 07/05/23 09:42 NM [id number]) Lumbar Spine Range of Motion Lumbar Spine Active Percentage Flexion 75 Extension 100 Rotation Left 10 Rotation Right 6 Lateral Flexion Left 100 Lateral Flexion Right 100 ROM Limitations Soft Tissue Tightness Comments 10; tightness along L lateral leg with flexion Hip Goniometric Range of Motion Hip Left Flexion w/Knee Flexed 110 Internal Rotation 30 External Rotation 30 Comments 140 deg hamstring length Right Flexion w/Knee Flexed 105 Internal Rotation 25 External Rotation 35 Comments 140 deg hamstring length Ankle and Foot Goniometric Range of Motion Ankle and Foot Right Dorsiflexion with Knee Flexed 10 Plantarflexion 40 Left Dorsiflexion with Knee Flexed 8 Plantarflexion 40 PT-OP-L Special Tests Start: 07/05/23 09:26 Freq: Status: Active Protocol: Document 07/04/23 07:30 NM (Rec: 07/05/23 09:42 NM [id number]) Special Tests Lumbar Spine Special Tests Brice/Quadrant Test Results + Comments R 3D reproduces to L side Distraction Test Results + Slump Test Results + Comments bilateral Straight Leg Raise Test Results + Comments bilateral PT-OP-M Strength Start: 07/05/23 09:26 Freq: Status: Active Protocol: Document 07/04/23 07:30 NM (Rec: 07/05/23 09:42 NM [id number]) Trunk Strength Trunk Manual Muscle Testing Flexion 4+ Good+ Extension 4 Good Rotation Left 5 Normal Rotation Right 5 Normal Lateral Flexion Left 5 Normal Lateral Flexion Right 5 Normal Core Stabilization plank: 10 sec side plank B: 8 sec No pain reproduced but difficulty with stabilization Hip Strength Hip Manual Muscle Testing Left Flexion (L2) 4+ Good+ Extension (S1) 4 Good Abduction 4- Good- Adduction 4+ Good+ External Rotation 4+ Good+ Internal Rotation 4+ Good+ Comments IR resisted reproduces Right Flexion (L2) 4+ Good+ Extension (S1) 5 Normal Abduction 5 Normal Adduction 5 Normal External Rotation 5 Normal Internal Rotation 4+ Good+ Knee Strength Knee Manual Muscle Testing Left Flexion (S2) 5 Normal Extension (L3) 5 Normal Right Flexion (S2) 4+ Good+ Extension (L3) 4+ Good+ Ankle/Foot Strength Ankle and Foot Manual Muscle Testing Left Dorsiflexion (L4) 4 Good Plantarflexion (S1) 4 Good Right Dorsiflexion (L4) 4+ Good+ Plantarflexion (S1) 4+ Good+ PT-OP-Q Treatments Start: 07/05/23 09:26 Freq: Status: Active Protocol: Document 07/19/23 07:32 NM (Rec: 07/19/23 08:45 NM [id number]) Therapeutic Exercises Supine Exercises nerve glide Supine Exercise Name 1. DF/PF (w/ knee flex/ext), 2 . hip ADD with DF/PF (knee flex/ext) Side left Equipment Used plinth Reps/Minutes 1x30 ea with breathwork Comments start of session TrA Supine Exercise Name abd draw up/in w/ 1. BKFO, 2. dying bug LE only Side bilateral Equipment Used self tactile cue medial to ASIS, PT tactile cue medial to ASIS Reps/Minutes 1x10 ea Comments cued to reset core brace ea time, smaller ROM for form lumbar distraction Side bilateral Equipment Used large green bruneian ball, towel around feet Reps/Minutes 1 minute Comments good feedback, reports muscle relaxation, symptom reduction Other Exercises hip stretching Other Exercise Name 1. floor pigeon stretch, 2. hip ADD/IR/ext Side bilateral Equipment Used mat on floor Reps/Minutes 1. 60 ea, 2. 1x10 ea leg Comments improved hip mobility 07/18, pain free; L more challenging Therapeutic Activity Therapeutic Activity squat Name AROM Reps/Minutes 1x10 Comments mild discomfort 3/10 above PSIS bilaterally (L>R) Cued for more hip hinge initially, neutral spine hip hinge/deadlift Comments 1. hip hinge to wall with tactile cues, 1x10 verbal cues for core bracing, neutral spine, rhomboid facilitation, no arch with depth 2. with dowel no resistance, 1x10 Cued for neutral spine, no hyperext, breathing 3. 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 Other Education Educated on use of hip hinge, neutral spine with emphasis on breathing during lifting at work PT-OP-T Assessment and Plan Start: 07/05/23 09:26 Freq: Status: Active Protocol: Document 07/19/23 07:32 NM (Rec: 07/19/23 08:45 NM [id number]) Physical Therapy Assessment Goals Six Impairment return to work Short Term Goal (STG) Pt will report that he is able to perform at least 50% of job functions without increase in baseline pain 07/19/23: reports 85-90% of job function, but reports difficulty with sustained positioning STG Duration 6 weeks [employer] 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 STG Duration 6 weeks [employer] Goal (LTG) Pt will be able to reach < 6 from the ground during forward trunk flexion test in order to demonstrate improvement in hamstring length and decrease neural tension. LTG Duration 12 weeks Four Impairment squats Impairment difficulty with maintaining squat position at work due to pain Short Term Goal (STG) Pt will be able to perform at least 10 squats without compensation or increase in baseline pain in order to perform necessary job requirements STG Duration 6 weeks [facility] Goal (LTG) Pt will be able to perform at least 20 squats with resistance and without compensation or increase in baseline pain in order to perform necessary job requirements LTG Duration 12 weeks Three Impairment strength Impairment L hip ext 4/5 and abd 4-/5 MMT Short Term Goal (STG) Pt will improve L hip ext and abduction strength to at least 4+/5 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 STG Duration 6 weeks [facility] Goal (LTG) Pt will improve L hip ext and abduction strength to at least 5/5 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 LTG Duration 12 weeks Two Impairment strength, stabilization Impairment plank 8 seconds side plank, 10 seconds front plank on elbows Short Term Goal (STG) Pt will be able to perform a plank (full or modified) for at least 45 seconds without signs of instability or increase in baseline pain in order to demonstrate improved core strength for ADLs and work STG Duration 6 weeks [employer] Car [employer] Goal (LTG) Pt will be able to perform a plank (full or modified) for at least 60 seconds without signs of instability or increase in baseline pain in order to demonstrate improved core strength for ADLs and work LTG Duration 12 weeks One Impairment HEP Impairment not performing HEP Short Term Goal (STG) Pt will report that he is performing HEP at least 2-3x/ wk in order to maximize progression with PT and promote independence with rehabilitation. 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 LTG Duration 12 weeks Assessment Summary Assessment Pt tolerated session well. Session emphasis on body mechanics, breath work coordination with lift types, and restoring flexibility. Initiated hip hinge training with progression to low resistance deadlift. Pt demonstrates improved form with tactile and verbal cues for breathing, core bracing, and neutral spine. He is pain free with AROM deadlift. However, pt has mild pain at B PSIS (L>R) with AROM squat, no change with core bracing, neutral spine. He continues to have good response to supine nerve glides, hip stretching. During supine core, pt demonstrates improved ability to maintain core bracing while breathing; however, he requires cues to reset the core to maintain the brace after a few reps. Pt would benefit from skilled PT for trunk/core strengthening, posterior chain flexibility, and body mechanics training in order to improve activity tolerance and return to PLOF. Physical Therapy Plan Frequency and Duration Frequency of Treatment 1-2x/wk Duration of treatment (weeks) 12 Plan of Care Start Date 07/04/23 Plan of Care End Date 09/29/23 Therapeutic Interventions Therapeutic Interventions Balance Training,Gait Training ,Home Exercise Program,Joint Mobilizations,Manual Therapy, Neuromuscular Re-education, Orthotic/Prosthetic Management ,Patient/Caregiver Education, Self-Care/Home Management, Sensory Integration,Soft Tissue Mobilization,Taping, Therapeutic Activities, Therapeutic Exercises Modalities Cold Pack/Ice Massage,Electric Stimulation,Hot Packs, Traction- Mechanical, Ultrasound Other Therapeutic Interventions pelvic realignment Next Visit Focus/Plan Next Note Type Treatment Note Next Visit Plan Review Hip hinge and deadlift w/ breath, look at squat form AROM (load if able), trial quad ext, dying bug, side plank, mod plank on counter Next session: manual and MWM to piriformis Progress core: side planks ( modified), full planks (add hip ext, abd as able) Focus on improving flexibility , flexion biased core. Avoid extension. stretching: hip ER manual: low back, glutes
--- NOTE | 2023-07-21 11:27 | PT.OTN ---
Current Diagnoses Other lack of coordination (07/21/23) Weakness (07/21/23) Strain of muscle, fascia and tendon of lower back, initial encounter (07/21/23) Strain of muscle, fascia and tendon of lower back, subsequent encounter (07/21/23) Physical Therapy Treatment Note PT-OP-A Visit Information Start: 07/05/23 09:26 Freq: Status: Active Protocol: Document 07/21/23 09:48 NBM (Rec: 07/21/23 12:29 NBM [id number]) Out-Patient Physical Therapy Visit Information Visit Information Visit Type Treatment Note Visit Note 12 visits Visit Start Time 09:50 Visit Stop Time 10:42 Visit Number 08/01 Number of ENGINE LATHE OPERATOR Visits 1 PT-OP-B Current Condition Start: 07/05/23 09:26 Freq: Status: Active Protocol: Document 07/04/23 07:30 NM (Rec: 07/05/23 09:42 NM [id number]) Current Condition History of Current Condition Onset Date March 2023 Current Complaints pain, movement limits History of Current Condition Pt presents with a work injury from [facility]2023. He states that the injury was low back pain then now radiates from L side of hip to ankle. He had a muscle relaxer and a steroid, which helped. He has pain mostly after walking around or putting pressure on his L thigh. States that back pain is primarily gone, but his leg pain is the most problematic (resolved in 3.5 weeks). Pt was injured when lifting from a crouched position, hit his back against rudder and shifted his weight on his back; he felt pain immediately and dropped to the ground; he continued working. 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 For his job , he needs to be able to crouch (move small spaces), flexibility, lifting heavy objects (130-150#). He has pain with extending his leg from hip flexion. Prior Treatments and Tests Radiographs 05/2023: no acute bony abnormalities or degenerative changes Treatment Goals Patient/Caregiver Goals work w/o pain Current Functional Impairments (Reported) Functional Limitations- Mobility/Gait 2-3 hr walking Functional Limitations- Work/School 8-10 hrs for 5 days/wk Functional Limitations- Recreation/ unable to perform leg workouts Hobbies (cardio ok)- strength training (leg press, calf raises, leg extension) after a specific weight and reps, 3x/ wk; currently unable to workout Functional Limitations- Other Reports 80-85% unable to perform normal activities at worst PT-OP-C Subjective Start: 07/05/23 09:26 Freq: Status: Active Protocol: Document 07/21/23 09:48 NBM (Rec: 07/21/23 12:29 NBM [id number]) OP-PT Subjective Patient Comments Patient Comments Ruy reports that work is still busy. Pt came from work and has L leg pain at hip and outside calf 2/10 right now. Ruy reports during session he's had a migraine and medication is wearing off. Pt reports he's really stressed right now and requests BP check end of session. Pt has not gotten raaratball yet for STM. He has been mindful of breath and core bracing with work and thinks it's really helping. Patient Reported Progress Improving PT-OP-E Functional Tests Start: 07/05/23 09:26 Freq: Status: Active Protocol: Document 07/04/23 07:30 NM (Rec: 07/05/23 09:42 NM [id number]) Functional Tests Other Forward Trunk Flexion Test Name of Test measured finger tip to floor Score 10 Comment increase in symptoms down legs PT-OP-F Manual Assessment Start: 07/05/23 09:26 Freq: Status: Active Protocol: Document 07/04/23 07:30 NM (Rec: 07/05/23 09:42 NM [id number]) Manual Assessments Soft Tissue Assessment Soft Tissue Mobility Assessment Increased hamstring tightness. Decreased hip flexor length. Increased tenderness of L hip and calf Joint Mobility Assessment Joint Mobility Assessment Hypomobility of lumbar spine, slight L deviation of lumbar spine. Limited hip mobility into flexion, decreased B ankle DF PT-OP-G Mobility & Gait Start: 07/05/23 09:26 Freq: Status: Active Protocol: Document 07/04/23 07:30 NM (Rec: 07/05/23 09:42 NM [id number]) OP Gait Assessment Gait Gait Assistance Required: Independent Distance (Feet) 150 Gait Deviations General Gait Pattern Antalgic,Lateral Trunk Lean Factors Limiting Gait Function Factors Limiting Gait Function Decreased Activity Tolerance, Limited Range of Motion,Pain Comments Gait Comments Demos R lateral trunk lean PT-OP-H Neuro Start: 07/05/23 09:26 Freq: Status: Active Protocol: Document 07/04/23 07:30 NM (Rec: 07/05/23 09:42 NM [id number]) Sensation Evaluation Comments Summary Comments BLE intact equally to light touch sensation Deep Tendon Reflex & Clonus Assessment Deep Tendon Reflex Bilateral Achilles Deep Tendon Reflex 1+ Diminished Bilateral Patellar Deep Tendon Reflex 2+ Normal PT-OP-J Posture/Palpation/Skin Start: 07/05/23 09:26 Freq: Status: Active Protocol: Document 07/04/23 07:30 NM (Rec: 07/05/23 09:42 NM [id number]) Posture Evaluation Position Standing Head/C-Spine Posture Forward Head L-Spine Posture Increased Lordosis,Shifted Right Pelvis Posture Anteriorly Tilted Weight Distribution Weight Shifted Right Hip Posture (L) Externally Rotated,(R) Externally Rotated Knee Posture (L) Genu Varus,(R) Genu Varus Palpation Assessment Location lumbar spine Palpation Findings Soft Tissue Tightness, Tenderness Palpation Details tenderness along L lateral spine, tightness of L lateral paraspinals No tenderness along midline spine Slight L deviation from midline along spine near L3 L leg Palpation Findings Edema,Tenderness Palpation Details tenderness along L calf in muscle belly tenderness along L glute/ piriformis, lateral hip PT-OP-K Range of Motion Start: 07/05/23 09:26 Freq: Status: Active Protocol: Document 07/04/23 07:30 NM (Rec: 07/05/23 09:42 NM [id number]) Lumbar Spine Range of Motion Lumbar Spine Active Percentage Flexion 75 Extension 100 Rotation Left 10 Rotation Right 6 Lateral Flexion Left 100 Lateral Flexion Right 100 ROM Limitations Soft Tissue Tightness Comments 10; tightness along L lateral leg with flexion Hip Goniometric Range of Motion Hip Left Flexion w/Knee Flexed 110 Internal Rotation 30 External Rotation 30 Comments 140 deg hamstring length Right Flexion w/Knee Flexed 105 Internal Rotation 25 External Rotation 35 Comments 140 deg hamstring length Ankle and Foot Goniometric Range of Motion Ankle and Foot Right Dorsiflexion with Knee Flexed 10 Plantarflexion 40 Left Dorsiflexion with Knee Flexed 8 Plantarflexion 40 PT-OP-L Special Tests Start: 07/05/23 09:26 Freq: Status: Active Protocol: Document 07/04/23 07:30 NM (Rec: 07/05/23 09:42 NM [id number]) Special Tests Lumbar Spine Special Tests Brice/Quadrant Test Results + Comments R 3D reproduces to L side Distraction Test Results + Slump Test Results + Comments bilateral Straight Leg Raise Test Results + Comments bilateral PT-OP-M Strength Start: 07/05/23 09:26 Freq: Status: Active Protocol: Document 07/04/23 07:30 NM (Rec: 07/05/23 09:42 NM [id number]) Trunk Strength Trunk Manual Muscle Testing Flexion 4+ Good+ Extension 4 Good Rotation Left 5 Normal Rotation Right 5 Normal Lateral Flexion Left 5 Normal Lateral Flexion Right 5 Normal Core Stabilization plank: 10 sec side plank B: 8 sec No pain reproduced but difficulty with stabilization Hip Strength Hip Manual Muscle Testing Left Flexion (L2) 4+ Good+ Extension (S1) 4 Good Abduction 4- Good- Adduction 4+ Good+ External Rotation 4+ Good+ Internal Rotation 4+ Good+ Comments IR resisted reproduces Right Flexion (L2) 4+ Good+ Extension (S1) 5 Normal Abduction 5 Normal Adduction 5 Normal External Rotation 5 Normal Internal Rotation 4+ Good+ Knee Strength Knee Manual Muscle Testing Left Flexion (S2) 5 Normal Extension (L3) 5 Normal Right Flexion (S2) 4+ Good+ Extension (L3) 4+ Good+ Ankle/Foot Strength Ankle and Foot Manual Muscle Testing Left Dorsiflexion (L4) 4 Good Plantarflexion (S1) 4 Good Right Dorsiflexion (L4) 4+ Good+ Plantarflexion (S1) 4+ Good+ PT-OP-Q Treatments Start: 07/05/23 09:26 Freq: Status: Active Protocol: Document 07/21/23 09:48 NB (Rec: 07/21/23 12:29 NB [id number]) Therapeutic Exercises Supine Exercises LTR Supine Exercise Name w/ breathwork Side bilateral Equipment Used 65cm physioball Reps/Minutes x10 ea Comments vc for smaller ROM to R d/t LLE n. symptom increase nerve glide Supine Exercise Name 1. DF/PF (w/ knee flex/ext), 2 . hip ADD with DF/PF (knee flex/ext) Side left Equipment Used plinth Reps/Minutes 1x30 ea with breathwork Comments after hip hinge ther activity TrA Supine Exercise Name abd draw up/in w/ 1. BKFO, 2. dying bug LE only Side bilateral Equipment Used PT tactile cue medial to ASIS Reps/Minutes 1x10 ea Comments vc reset core brace ea time, smaller ROM. L hip pain w/ cue PPT. lumbar distraction Supine Exercise Name after supine dying bug for L hip pain Side bilateral Equipment Used large green belarusian ball Reps/Minutes 1 minute Comments good feedback, symptom reduction Prone Exercises child's pose Prone Exercise Name fwd only Reps/Minutes x60s Other Exercises quadruped Other Exercise Name 1. hip extension (ceiling stomper) Side bilateral Equipment Used tissue box biofeedback for neutral pelvis Reps/Minutes x10 ea Comments cues for excessive pelvis rotation. lumbar hyperextension, breath hip stretching Other Exercise Name 1. floor pigeon stretch, 2. hip ADD/IR/ext Side bilateral Equipment Used mat on floor Reps/Minutes 1. 60 ea, 2. 1x10 ea leg Comments pain free; L more challenging Therapeutic Activity Therapeutic Activity hip hinge/deadlift Comments 1. hip hinge to wall with tactile cues, 1x10 verbal cues for core bracing, neutral spine, rhomboid facilitation, no arch with depth 2. with dowel no resistance, 1x10 Cued for neutral spine, no hyperext, breathing 3. deadlift with lvl 3 band under feet, x10, x5 - dc'd d/t LLE pain increase from 2>3.5. Dowel for neutral spine tactile cue Manual Therapy Treatment Other Other Manual Treatments BP check per pt request due to stress: 143/82. 98% SO2, 78 bpm. Pt reports good for him. Self-Care/Home Management Treatment Education Patient Education Safety Other Education Discussion re: Stage II Hypertension with BP at 23, potential complications, and recommendation from this ENGINE LATHE OPERATOR and evaluating PT to notify PCP for BP followup and management. PT-OP-T Assessment and Plan Start: 07/05/23 09:26 Freq: Status: Active Protocol: Document 07/21/23 09:48 [facility] (Rec: 07/21/23 12:29 [facility] [id number]) Physical Therapy Assessment Goals Six Impairment return to work Short Term Goal (STG) Pt will report that he is able to perform at least 50% of job functions without increase in baseline pain 07/19/23: reports 85-90% of job function, but reports difficulty with sustained positioning STG Duration 6 weeks [employer] 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 STG Duration 6 weeks Half-Way Goal (LTG) Pt will be able to reach < 6 from the ground during forward trunk flexion test in order to demonstrate improvement in hamstring length and decrease neural tension. LTG Duration 12 weeks Four Impairment squats Impairment difficulty with maintaining squat position at work due to pain Short Term Goal (STG) Pt will be able to perform at least 10 squats without compensation or increase in baseline pain in order to perform necessary job requirements STG Duration 6 weeks [employer] Goal (LTG) Pt will be able to perform at least 20 squats with resistance and without compensation or increase in baseline pain in order to perform necessary job requirements LTG Duration 12 weeks Three Impairment strength Impairment L hip ext 4/5 and abd 4-/5 MMT Short Term Goal (STG) Pt will improve L hip ext and abduction strength to at least 4+/5 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 STG Duration 6 weeks [employer] Goal (LTG) Pt will improve L hip ext and abduction strength to at least 5/5 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 LTG Duration 12 weeks Two Impairment strength, stabilization Impairment plank 8 seconds side plank, 10 seconds front plank on elbows Short Term Goal (STG) Pt will be able to perform a plank (full or modified) for at least 45 seconds without signs of instability or increase in baseline pain in order to demonstrate improved core strength for ADLs and work STG Duration 6 weeks Half-Way Goal (LTG) Pt will be able to perform a plank (full or modified) for at least 60 seconds without signs of instability or increase in baseline pain in order to demonstrate improved core strength for ADLs and work LTG Duration 12 weeks One Impairment HEP Impairment not performing HEP Short Term Goal (STG) Pt will report that he is performing HEP at least 2-3x/ wk in order to maximize progression with PT and promote independence with rehabilitation. 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 LTG Duration 12 weeks Assessment Summary Assessment Treatment focus on hip hinge at wall with progressive resistance up to Lvl 3 Tb which was discontinued due to LLE pain increase from 2/10 start of session to 3.5/10. Pt requires consistent cues for slower pacing and breathwork w / TrA engagement and demos improved self-awareness and performance with cueing and repetition. BP check EOS per pt request due to stress: 143/ 82 w/ discussion re: Stage II Hypertension with BP at 23, potential complications, and recommendation from this ENGINE LATHE OPERATOR and evaluating PT to notify PCP for BP followup and management. Physical Therapy Plan Frequency and Duration Frequency of Treatment 1-2x/wk Duration of treatment (weeks) 12 Plan of Care Start Date 07/04/23 Plan of Care End Date 09/29/23 Therapeutic Interventions Therapeutic Interventions Balance Training,Gait Training ,Home Exercise Program,Joint Mobilizations,Manual Therapy, Neuromuscular Re-education, Orthotic/Prosthetic Management ,Patient/Caregiver Education, Self-Care/Home Management, Sensory Integration,Soft Tissue Mobilization,Taping, Therapeutic Activities, Therapeutic Exercises Modalities Cold Pack/Ice Massage,Electric Stimulation,Hot Packs, Traction- Mechanical, Ultrasound Other Therapeutic Interventions pelvic realignment Next Visit Focus/Plan Next Note Type Treatment Note Next Visit Plan Review Hip hinge and deadlift w/ breath, look at squat form AROM (load if able), trial quad ext, dying bug, side plank, mod plank on counter Next session: manual and MWM to piriformis Progress core: side planks ( modified), full planks (add hip ext, abd as able) Focus on improving flexibility , flexion biased core. Avoid extension. stretching: hip ER manual: low back, glutes
--- NOTE | 2023-07-26 11:00 | PT.OTN ---
Current Diagnoses Other lack of coordination (07/26/23) Weakness (07/26/23) Strain of muscle, fascia and tendon of lower back, initial encounter (07/26/23) Strain of muscle, fascia and tendon of lower back, subsequent encounter (07/26/23) Physical Therapy Treatment Note PT-OP-A Visit Information Start: 07/05/23 09:26 Freq: Status: Active Protocol: Document 07/26/23 10:01 NBM (Rec: 07/26/23 10:57 NBM [id number]) Out-Patient Physical Therapy Visit Information Visit Information Visit Type Treatment Note Visit Note 12 visits Visit Start Time 09:53 Visit Stop Time 10:40 Visit Number 08/31 Number of [employer] Visits 2 Evaluation Information Evaluation Date 07/04/23 PT-OP-B Current Condition Start: 07/05/23 09:26 Freq: Status: Active Protocol: Document 07/04/23 07:30 NM (Rec: 07/05/23 09:42 NM [id number]) Current Condition History of Current Condition Onset Date March 2023 Current Complaints pain, movement limits History of Current Condition Pt presents with a work injury from [facility]2023. He states that the injury was low back pain then now radiates from L side of hip to ankle. He had a muscle relaxer and a steroid, which helped. He has pain mostly after walking around or putting pressure on his L thigh. States that back pain is primarily gone, but his leg pain is the most problematic (resolved in 3.5 weeks). Pt was injured when lifting from a crouched position, hit his back against rudder and shifted his weight on his back; he felt pain immediately and dropped to the ground; he continued working. 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 For his job , he needs to be able to crouch (move small spaces), flexibility, lifting heavy objects (130-150#). He has pain with extending his leg from hip flexion. Prior Treatments and Tests Radiographs 05/2023: no acute bony abnormalities or degenerative changes Treatment Goals Patient/Caregiver Goals work w/o pain Current Functional Impairments (Reported) Functional Limitations- Mobility/Gait 2-3 hr walking Functional Limitations- Work/School 8-10 hrs for 5 days/wk Functional Limitations- Recreation/ unable to perform leg workouts Hobbies (cardio ok)- strength training (leg press, calf raises, leg extension) after a specific weight and reps, 3x/ wk; currently unable to workout Functional Limitations- Other Reports 80-85% unable to perform normal activities at worst PT-OP-C Subjective Start: 07/05/23 09:26 Freq: Status: Active Protocol: Document 07/26/23 10:01 NBM (Rec: 07/26/23 10:57 NBM [id number]) OP-PT Subjective Patient Comments Patient Comments Ruy reports 2/10 L leg pain (hip to thigh, then outside calf) and he came from work and has good energy. 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 Plans to contact PCP afterwards regarding BP. PT-OP-E Functional Tests Start: 07/05/23 09: Freq: Status: Active Protocol: Document 07/04/23 07:30 NM (Rec: 07/05/23 09:42 NM [id number]) Functional Tests Other Forward Trunk Flexion Test Name of Test measured finger tip to floor Score 10 Comment increase in symptoms down legs PT-OP-F Manual Assessment Start: 07/05/23 09:26 Freq: Status: Active Protocol: Document 07/04/23 07:30 NM (Rec: 07/05/23 09:42 NM [id number]) Manual Assessments Soft Tissue Assessment Soft Tissue Mobility Assessment Increased hamstring tightness. Decreased hip flexor length. Increased tenderness of L hip and calf Joint Mobility Assessment Joint Mobility Assessment Hypomobility of lumbar spine, slight L deviation of lumbar spine. Limited hip mobility into flexion, decreased B ankle DF PT-OP-G Mobility & Gait Start: 07/05/23 09:26 Freq: Status: Active Protocol: Document 07/04/23 07:30 NM (Rec: 07/05/23 09:42 NM [id number]) OP Gait Assessment Gait Gait Assistance Required: Independent Distance (Feet) 150 Gait Deviations General Gait Pattern Antalgic,Lateral Trunk Lean Factors Limiting Gait Function Factors Limiting Gait Function Decreased Activity Tolerance, Limited Range of Motion,Pain Comments Gait Comments Demos R lateral trunk lean PT-OP-H Neuro Start: 07/05/23 09:26 Freq: Status: Active Protocol: Document 07/04/23 07:30 NM (Rec: 07/05/23 09:42 NM [id number]) Sensation Evaluation Comments Summary Comments BLE intact equally to light touch sensation Deep Tendon Reflex & Clonus Assessment Deep Tendon Reflex Bilateral Achilles Deep Tendon Reflex 1+ Diminished Bilateral Patellar Deep Tendon Reflex 2+ Normal PT-OP-J Posture/Palpation/Skin Start: 07/05/23 09:26 Freq: Status: Active Protocol: Document 07/04/23 07:30 NM (Rec: 07/05/23 09:42 NM [id number]) Posture Evaluation Position Standing Head/C-Spine Posture Forward Head L-Spine Posture Increased Lordosis,Shifted Right Pelvis Posture Anteriorly Tilted Weight Distribution Weight Shifted Right Hip Posture (L) Externally Rotated,(R) Externally Rotated Knee Posture (L) Genu Varus,(R) Genu Varus Palpation Assessment Location lumbar spine Palpation Findings Soft Tissue Tightness, Tenderness Palpation Details tenderness along L lateral spine, tightness of L lateral paraspinals No tenderness along midline spine Slight L deviation from midline along spine near L3 L leg Palpation Findings Edema,Tenderness Palpation Details tenderness along L calf in muscle belly tenderness along L glute/ piriformis, lateral hip PT-OP-K Range of Motion Start: 07/05/23 09:26 Freq: Status: Active Protocol: Document 07/04/23 07:30 NM (Rec: 07/05/23 09:42 NM [id number]) Lumbar Spine Range of Motion Lumbar Spine Active Percentage Flexion 75 Extension 100 Rotation Left 10 Rotation Right 6 Lateral Flexion Left 100 Lateral Flexion Right 100 ROM Limitations Soft Tissue Tightness Comments 10; tightness along L lateral leg with flexion Hip Goniometric Range of Motion Hip Left Flexion w/Knee Flexed 110 Internal Rotation 30 External Rotation 30 Comments 140 deg hamstring length Right Flexion w/Knee Flexed 105 Internal Rotation 25 External Rotation 35 Comments 140 deg hamstring length Ankle and Foot Goniometric Range of Motion Ankle and Foot Right Dorsiflexion with Knee Flexed 10 Plantarflexion 40 Left Dorsiflexion with Knee Flexed 8 Plantarflexion 40 PT-OP-L Special Tests Start: 07/05/23 09:26 Freq: Status: Active Protocol: Document 07/04/23 07:30 NM (Rec: 07/05/23 09:42 NM [id number]) Special Tests Lumbar Spine Special Tests Brice/Quadrant Test Results + Comments R 3D reproduces to L side Distraction Test Results + Slump Test Results + Comments bilateral Straight Leg Raise Test Results + Comments bilateral PT-OP-M Strength Start: 07/05/23 09:26 Freq: Status: Active Protocol: Document 07/04/23 07:30 NM (Rec: 07/05/23 09:42 NM [id number]) Trunk Strength Trunk Manual Muscle Testing Flexion 4+ Good+ Extension 4 Good Rotation Left 5 Normal Rotation Right 5 Normal Lateral Flexion Left 5 Normal Lateral Flexion Right 5 Normal Core Stabilization plank: 10 sec side plank B: 8 sec No pain reproduced but difficulty with stabilization Hip Strength Hip Manual Muscle Testing Left Flexion (L2) 4+ Good+ Extension (S1) 4 Good Abduction 4- Good- Adduction 4+ Good+ External Rotation 4+ Good+ Internal Rotation 4+ Good+ Comments IR resisted reproduces Right Flexion (L2) 4+ Good+ Extension (S1) 5 Normal Abduction 5 Normal Adduction 5 Normal External Rotation 5 Normal Internal Rotation 4+ Good+ Knee Strength Knee Manual Muscle Testing Left Flexion (S2) 5 Normal Extension (L3) 5 Normal Right Flexion (S2) 4+ Good+ Extension (L3) 4+ Good+ Ankle/Foot Strength Ankle and Foot Manual Muscle Testing Left Dorsiflexion (L4) 4 Good Plantarflexion (S1) 4 Good Right Dorsiflexion (L4) 4+ Good+ Plantarflexion (S1) 4+ Good+ PT-OP-Q Treatments Start: 07/05/23 09:26 Freq: Status: Active Protocol: Document 07/26/23 10:01 NBM (Rec: 07/26/23 10:57 [facility] [id number]) Therapeutic Exercises Supine Exercises LTR Supine Exercise Name w/ breathwork Side bilateral Reps/Minutes x10 ea Comments pain free TrA Supine Exercise Name abd draw up/in w/ 1. BKFO, 2. dying bug LE only Side bilateral Equipment Used PT tactile cue medial to ASIS Reps/Minutes 1x10 ea Comments vc reset core brace ea time, smaller ROM. L hip pain w/ cue PPT. Prone Exercises child's pose Prone Exercise Name fwd only Reps/Minutes x60s Sidelying Exercises side plank Sidelying Exercise Name modified (from knees) Side bilateral Equipment Used yoga mat Reps/Minutes 30s ea Comments R s/l challenging>L s/l, vc for alignment Other Exercises quadruped Other Exercise Name 1. hip extension (ceiling stomper) 2. alternating UE reach 3. alt LE reach Side bilateral Reps/Minutes x10 ea Comments cues weightshift, excessive pelvis rot., lumbar hyperextension, breath hip stretching Other Exercise Name 1. floor pigeon stretch, 2. hip ADD/IR/ext - not today Side bilateral Equipment Used mat on floor Reps/Minutes 1. 60 ea Comments pain free Therapeutic Activity Therapeutic Activity squat Name AROM Reps/Minutes 1x10 Comments w/ 10# DB 2x5 cue for hip hinge pain-free, feels good hip hinge/deadlift Comments 1. hip hinge to wall with tactile cues, 1x10 verbal cues for core bracing, neutral spine, rhomboid facilitation, no arch with depth 2. with dowel no resistance, 1x10 Cued for neutral spine, no hyperext, breathing 3. deadlift with lvl 3 band under feet, x10, x5 - dc'd d/t LLE pain increase from 2>3.5. Dowel for neutral spine tactile cue Self-Care/Home Management Treatment Education Patient Education Home Exercise Program,Safety Other Education -Discussion re: Stage II Hypertension with BP at 23 and recommendation from this [employer] and evaluating PT last visit to notify PCP for BP followup and management; pt reports improved stress at this time and will self-monitor BP with plan to contact PCP upon return from week-long vacation . -Added to HEP: modified side planks, quadruped hip extension (ceiling stompers), and quadruped 1) alternating UE reach and 2) alternating LE reach with core focus PT-OP-T Assessment and Plan Start: 07/05/23 09:26 Freq: Status: Active Protocol: Document 07/26/23 10:01 [facility] (Rec: 07/26/23 10:57 [facility] [id number]) Physical Therapy Assessment Goals Six Impairment return to work Short Term Goal (STG) Pt will report that he is able to perform at least 50% of job functions without increase in baseline pain 07/19/23: reports 85-90% of job function, but reports difficulty with sustained positioning STG Duration 6 weeks Senior Living 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 STG Duration 6 weeks Senior Living Goal (LTG) Pt will be able to reach < 6 from the ground during forward trunk flexion test in order to demonstrate improvement in hamstring length and decrease neural tension. LTG Duration 12 weeks Four Impairment squats Impairment difficulty with maintaining squat position at work due to pain Short Term Goal (STG) Pt will be able to perform at least 10 squats without compensation or increase in baseline pain in order to perform necessary job requirements STG Duration 6 weeks Senior Living Goal (LTG) Pt will be able to perform at least 20 squats with resistance and without compensation or increase in baseline pain in order to perform necessary job requirements LTG Duration 12 weeks Three Impairment strength Impairment L hip ext 4/5 and abd 4-/5 MMT Short Term Goal (STG) Pt will improve L hip ext and abduction strength to at least 4+/5 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 STG Duration 6 weeks Toy Packer Goal (LTG) Pt will improve L hip ext and abduction strength to at least 5/5 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 LTG Duration 12 weeks Two Impairment strength, stabilization Impairment plank 8 seconds side plank, 10 seconds front plank on elbows Short Term Goal (STG) Pt will be able to perform a plank (full or modified) for at least 45 seconds without signs of instability or increase in baseline pain in order to demonstrate improved core strength for ADLs and work STG Duration 6 weeks Toy Packer Goal (LTG) Pt will be able to perform a plank (full or modified) for at least 60 seconds without signs of instability or increase in baseline pain in order to demonstrate improved core strength for ADLs and work LTG Duration 12 weeks One Impairment HEP Impairment not performing HEP Short Term Goal (STG) Pt will report that he is performing HEP at least 2-3x/ wk in order to maximize progression with PT and promote independence with rehabilitation. 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 LTG Duration 12 weeks Assessment Summary Assessment Pt arrives from work feeling good and energized. Treatment focus on hip hinge mechanics and core progression. Ruy tolerates hip hinge w/ Lvl 3 Tb without increase in symptoms, demonstrating improvement from last session 07/20 where this activity was discontinued due to increase in LLE n. symptoms and pain. Pt also tolerates squats w/ load progression of 10# pain free but requires cues after 5 reps for hip hinge; self- awareness and performance improves after cueing. Core is challenged in quadruped position; added to HEP: modified side planks, quadruped hip extension ( ceiling stompers), and quadruped 1. alternating UE reach and 2.alternating LE reach with core focus. LLE pain increases from 2/10 start of session to 2.5/10 end of session demonstrating improving activity tolerance. Discussion w/ pt re: followup with PCP for BP management due to pt report of Stage II hypertension w/ stress although currently improved per pt; pt plans to contact PCP upon return from week-long vacation and self-monitor in the meantime. Physical Therapy Plan Frequency and Duration Frequency of Treatment 1-2x/wk Duration of treatment (weeks) 12 Plan of Care Start Date 07/04/23 Plan of Care End Date 09/29/23 Therapeutic Interventions Therapeutic Interventions Balance Training,Gait Training ,Home Exercise Program,Joint Mobilizations,Manual Therapy, Neuromuscular Re-education, Orthotic/Prosthetic Management ,Patient/Caregiver Education, Self-Care/Home Management, Sensory Integration,Soft Tissue Mobilization,Taping, Therapeutic Activities, Therapeutic Exercises Modalities Cold Pack/Ice Massage,Electric Stimulation,Hot Packs, Traction- Mechanical, Ultrasound Other Therapeutic Interventions pelvic realignment Next Visit Focus/Plan Next Note Type Treatment Note Next Visit Plan Review Hip hinge and deadlift w/ breath, mod side plank, quad hip ext, quad UE and LE ext; look at squat form AROM with load, dying bug, mod plank on counter Next session: manual and MWM to piriformis Progress core: side planks ( modified), full planks (add hip ext, abd as able) Focus on improving flexibility , flexion biased core. Avoid extension. stretching: hip ER manual: low back, glutes
--- NOTE | 2023-08-07 08:50 | PT.OTN ---
Current Diagnoses Other lack of coordination (08/07/23) Weakness (08/07/23) Strain of muscle, fascia and tendon of lower back, subsequent encounter (08/07/23) Physical Therapy Treatment Note PT-OP-A Visit Information Start: 07/05/23 09:26 Freq: Status: Active Protocol: Document 08/07/23 07:31 NM (Rec: 08/07/23 08:17 NM [id number]) Out-Patient Physical Therapy Visit Information Visit Information Visit Type Progress Note Visit Note 12 visits Visit Start Time 07:34 Visit Stop Time 08:15 Visit Number 10/01 Evaluation Information Evaluation Date 07/04/23 PT-OP-B Current Condition Start: 07/05/23 09:26 Freq: Status: Active Protocol: Document 07/04/23 07:30 NM (Rec: 07/05/23 09:42 NM [id number]) Current Condition History of Current Condition Onset Date March 2023 Current Complaints pain, movement limits History of Current Condition Pt presents with a work injury from the [facility]. He states that the injury was low back pain then now radiates from L side of hip to ankle. He had a muscle relaxer and a steroid, which helped. He has pain mostly after walking around or putting pressure on his L thigh. States that back pain is primarily gone, but his leg pain is the most problematic (resolved in 3.5 weeks). Pt was injured when lifting from a crouched position, hit his back against rudder and shifted his weight on his back; he felt pain immediately and dropped to the ground; he continued working. 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 For his job , he needs to be able to crouch (move small spaces), flexibility, lifting heavy objects (130-150#). He has pain with extending his leg from hip flexion. Prior Treatments and Tests Radiographs 05/2023: no acute bony abnormalities or degenerative changes Treatment Goals Patient/Caregiver Goals work w/o pain Current Functional Impairments (Reported) Functional Limitations- Mobility/Gait 2-3 hr walking Functional Limitations- Work/School 8-10 hrs for 5 days/wk Functional Limitations- Recreation/ unable to perform leg workouts Hobbies (cardio ok)- strength training (leg press, calf raises, leg extension) after a specific weight and reps, 3x/ wk; currently unable to workout Functional Limitations- Other Reports 80-85% unable to perform normal activities at worst PT-OP-C Subjective Start: 07/05/23 09:26 Freq: Status: Active Protocol: Document 08/07/23 07:31 NM (Rec: 08/07/23 08:17 NM [id number]) OP-PT Subjective Patient Comments Patient Comments Pt reports that his L hip began bothering him again last night from the glute to the lateral knee. States was pulsating, woke him up. Was sleeping partially turned on his side. He reports no back back during the last week because on vacation. States when at work, he has been standing upright, rotating his leg to stretch it out, which helps. States has been 1-2/10, including when he is working. PT-OP-E Functional Tests Start: 07/05/23 09:26 Freq: Status: Active Protocol: Document 07/04/23 07:30 NM (Rec: 07/05/23 09:42 NM [id number]) Functional Tests Other Forward Trunk Flexion Test Name of Test measured finger tip to floor Score 10 Comment increase in symptoms down legs PT-OP-F Manual Assessment Start: 07/05/23 09:26 Freq: Status: Active Protocol: Document 07/04/23 07:30 NM (Rec: 07/05/23 09:42 NM [id number]) Manual Assessments Soft Tissue Assessment Soft Tissue Mobility Assessment Increased hamstring tightness. Decreased hip flexor length. Increased tenderness of L hip and calf Joint Mobility Assessment Joint Mobility Assessment Hypomobility of lumbar spine, slight L deviation of lumbar spine. Limited hip mobility into flexion, decreased B ankle DF PT-OP-G Mobility & Gait Start: 07/05/23 09:26 Freq: Status: Active Protocol: Document 07/04/23 07:30 NM (Rec: 07/05/23 09:42 NM [id number]) OP Gait Assessment Gait Gait Assistance Required: Independent Distance (Feet) 150 Gait Deviations General Gait Pattern Antalgic,Lateral Trunk Lean Factors Limiting Gait Function Factors Limiting Gait Function Decreased Activity Tolerance, Limited Range of Motion,Pain Comments Gait Comments Demos R lateral trunk lean PT-OP-H Neuro Start: 07/05/23 09:26 Freq: Status: Active Protocol: Document 07/04/23 07:30 NM (Rec: 07/05/23 09:42 NM [id number]) Sensation Evaluation Comments Summary Comments BLE intact equally to light touch sensation Deep Tendon Reflex & Clonus Assessment Deep Tendon Reflex Bilateral Achilles Deep Tendon Reflex 1+ Diminished Bilateral Patellar Deep Tendon Reflex 2+ Normal PT-OP-J Posture/Palpation/Skin Start: 07/05/23 09:26 Freq: Status: Active Protocol: Document 07/04/23 07:30 NM (Rec: 07/05/23 09:42 NM [id number]) Posture Evaluation Position Standing Head/C-Spine Posture Forward Head L-Spine Posture Increased Lordosis,Shifted Right Pelvis Posture Anteriorly Tilted Weight Distribution Weight Shifted Right Hip Posture (L) Externally Rotated,(R) Externally Rotated Knee Posture (L) Genu Varus,(R) Genu Varus Palpation Assessment Location lumbar spine Palpation Findings Soft Tissue Tightness, Tenderness Palpation Details tenderness along L lateral spine, tightness of L lateral paraspinals No tenderness along midline spine Slight L deviation from midline along spine near L3 L leg Palpation Findings Edema,Tenderness Palpation Details tenderness along L calf in muscle belly tenderness along L glute/ piriformis, lateral hip PT-OP-K Range of Motion Start: 07/05/23 09:26 Freq: Status: Active Protocol: Document 08/07/23 07:31 NM (Rec: 08/07/23 08:23 NM [id number]) Lumbar Spine Range of Motion Lumbar Spine Active Percentage Flexion 75 Extension 100 Rotation Left 10 Rotation Right 6 Lateral Flexion Left 100 Lateral Flexion Right 100 ROM Limitations Soft Tissue Tightness Comments 10; tightness along L lateral leg with flexion 08/06/24: 6 from floor w/ flexion PT-OP-L Special Tests Start: 07/05/23 09:26 Freq: Status: Active Protocol: Document 07/04/23 07:30 NM (Rec: 07/05/23 09:42 NM [id number]) Special Tests Lumbar Spine Special Tests Brice/Quadrant Test Results + Comments R 3D reproduces to L side Distraction Test Results + Slump Test Results + Comments bilateral Straight Leg Raise Test Results + Comments bilateral PT-OP-M Strength Start: 07/05/23 09:26 Freq: Status: Active Protocol: Document 08/07/23 07:31 NM (Rec: 08/07/23 08:17 NM [id number]) Hip Strength Hip Manual Muscle Testing Left Flexion (L2) 4+ Good+ Extension (S1) 4 Good Abduction 4- Good- Adduction 4+ Good+ External Rotation 4+ Good+ Internal Rotation 4+ Good+ Comments IR resisted reproduces 08/07/23: 4+/5 hip abd and ext, mild back pain with AROM hip ext PT-OP-Q Treatments Start: 07/05/23 09:26 Freq: Status: Active Protocol: Document 08/07/23 07:31 NM (Rec: 08/07/23 08:17 NM [id number]) Therapeutic Exercises Supine Exercises ITB stretch Side left Equipment Used strap Reps/Minutes 60 Comments slight discomfort in areas as last night, improved with stretch nerve glide Supine Exercise Name with HS mobilization Side left Equipment Used plinth Reps/Minutes 60 Prone Exercises plank Prone Exercise Name full plank on elbows Reps/Minutes 2x30 Comments no pain, challenging with stabilization after 30 sec; improved breathing Sidelying Exercises clams Side left Resistance AROM > level 2 band around thighs Reps/Minutes 3x10 Comments good breath work; less discomfort w/ reps, good activation Standing Exercises lateral lunge Standing Exercise Name for hip mobility Side bilateral Reps/Minutes 8 ea direction Comments slight lateral hip discomfort to L w/ increased depth squat Standing Exercise Name goblet squat Reps/Minutes 10 AROM, 10 10# Comments cued form; improved breathwork side steps Side bilateral Resistance level 2 squat around ankles Reps/Minutes 2x25 ft Comments squat form Manual Therapy Treatment Soft Tissue Mobilization glutes/piriformis/hamstrings/calves Body Location L sided Mobilization Type Instrument Assisted, Oscillations,Rolling,Sustained Pressure Intensity/Depth Moderate Body Position Prone Comments Tenderness along L glutes/ piriformis to palpation. Reduced with gentle > moderate soft tissue mobilization, less tightness following mobilization. Educated to perform at home lumbar paraspinals Body Location L paraspinals, QL Mobilization Type Oscillations,Rolling Intensity/Depth Moderate Body Position Prone Comments Tightness of L paraspinals and QL, reduced with rolling and oscillation. Good tolerance to soft tissue mobilization Self-Care/Home Management Treatment Education Patient Education Home Exercise Program Other Education HEP: side steps with band at ankles, provided level 2 band PT-OP-T Assessment and Plan Start: 07/05/23 09:26 Freq: Status: Active Protocol: Document 08/07/23 07:31 NM (Rec: 08/07/23 08:17 NM [id number]) Physical Therapy Assessment Goals Six Impairment return to work Short Term Goal (STG) Pt will report that he is able to perform at least 50% of job functions without increase in baseline pain 07/19/23: reports 85-90% of job function, but reports difficulty with sustained positioning 08/07/23: 95-100% (forcing L leg into WB with hip ER) STG Duration 6 weeks MET Detention Goal (LTG) Pt will report that he is able to perform at least 75% of job functions without increase in baseline pain or if appropriate, pt will be referred to work conditioning in order to return to work 08/07/23: 95-100% LTG Duration 12 weeks Five Impairment ROM Impairment forward flexion test 10 from ground Short Term Goal (STG) Pt will be able to reach < 10 from the ground during forward trunk flexion test in order to demonstrate improvement in hamstring length and decrease neural tension. 08/07/23: 6, tight hamstrings but pain free STG Duration 6 weeks MET [employer] Goal (LTG) Pt will be able to reach < 6 from the ground during forward trunk flexion test in order to demonstrate improvement in hamstring length and decrease neural tension. LTG Duration 12 weeks Four Impairment squats Impairment difficulty with maintaining squat position at work due to pain Short Term Goal (STG) Pt will be able to perform at least 10 squats without compensation or increase in baseline pain in order to perform necessary job requirements 08/07/23: 10 AROM w/o pain and improved form, goblet squat 10 # with cues for core bracing and to minimize breath holding STG Duration 6 weeks MET [employer] Goal (LTG) Pt will be able to perform at least 20 squats with resistance and without compensation or increase in baseline pain in order to perform necessary job requirements LTG Duration 12 weeks Three Impairment strength Impairment L hip ext 4/5 and abd 4-/5 MMT Short Term Goal (STG) Pt will improve L hip ext and abduction strength to at least 4+/5 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 08/07/23: 4+/5, slight back pain with hip extension STG Duration 6 weeks MET [employer] Goal (LTG) Pt will improve L hip ext and abduction strength to at least 5/5 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 LTG Duration 12 weeks Two Impairment strength, stabilization Impairment plank 8 seconds side plank, 10 seconds front plank on elbows Short Term Goal (STG) Pt will be able to perform a plank (full or modified) for at least 45 seconds without signs of instability or increase in baseline pain in order to demonstrate improved core strength for ADLs and work 08/07/23: 30 seconds before sides of instability, pain free STG Duration 6 weeks NOT MET Detention Goal (LTG) Pt will be able to perform a plank (full or modified) for at least 60 seconds without signs of instability or increase in baseline pain in order to demonstrate improved core strength for ADLs and work LTG Duration 12 weeks One Impairment HEP Impairment not performing HEP Short Term Goal (STG) Pt will report that he is performing HEP at least 2-3x/ wk in order to maximize progression with PT and promote independence with rehabilitation. 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 LTG Duration 12 weeks Progress Towards Goals Progress Towards Goals Progressing Toward Goals Assessment Summary Assessment Pt tolerated session well despite reports of increased hip pain over the weekend. Hip pain symptoms improved with soft tissue mobilization of glutes/piriformis. At end of session, pt reports hips not achy and states no back pain or pulling. During session, pt demonstrates improved breath work and core bracing without cueing while performing planks and squats. Demonstrates difficulty with core stabilization after 30 second planks. Pt with good tolerance for added hip abduction strengthening and hip ER. He continues to have discomfort with hip ER stretching, but only if body weight pressure placed on hip (e.g. full pigeon stretch vs modified pigeon stretch). Pt would benefit from skilled PT for progressive hip and lumbar/ core strengthening, body mechanics training, and flexibility training in order to improve symptom management and activity tolerance. Physical Therapy Plan Frequency and Duration Frequency of Treatment 1-2x/wk Duration of treatment (weeks) 12 Plan of Care Start Date 07/04/23 Plan of Care End Date 09/29/23 Therapeutic Interventions Therapeutic Interventions Balance Training,Gait Training ,Home Exercise Program,Joint Mobilizations,Manual Therapy, Neuromuscular Re-education, Orthotic/Prosthetic Management ,Patient/Caregiver Education, Self-Care/Home Management, Sensory Integration,Soft Tissue Mobilization,Taping, Therapeutic Activities, Therapeutic Exercises Modalities Cold Pack/Ice Massage,Electric Stimulation,Hot Packs, Traction- Mechanical, Ultrasound Other Therapeutic Interventions pelvic realignment Next Visit Focus/Plan Next Note Type Treatment Note Next Visit Plan trial single leg bridge vs quad hip ext, glute strengthening (s/l abd, side steps, hip 3 way), goblet squat, lumbar and hip stretch. Cont with stretching HS, glutes, hip flexors, calves. Hip IR/ER mobility. Address ITB as needed Next session: manual and MWM to piriformis Progress core: side planks ( modified), full planks (add hip ext, abd as able) Focus on improving flexibility , flexion biased core. Avoid extension. stretching: hip ER manual: low back, glutes
--- NOTE | 2023-08-14 15:50 | PT.OTN ---
Current Diagnoses Other lack of coordination (08/14/23) Weakness (08/14/23) Strain of muscle, fascia and tendon of lower back, subsequent encounter (08/14/23) Physical Therapy Treatment Note PT-OP-A Visit Information Start: 07/05/23 09:26 Freq: Status: Active Protocol: Document 08/14/23 07:28 NM (Rec: 08/14/23 08:18 NM [id number]) Out-Patient Physical Therapy Visit Information Visit Information Visit Type Treatment Note Visit Note 12 visits Visit Start Time 07:36 Visit Stop Time 08:15 Visit Number 12/01 Evaluation Information Evaluation Date 07/04/23 PT-OP-B Current Condition Start: 07/05/23 09:26 Freq: Status: Active Protocol: Document 07/04/23 07:30 NM (Rec: 07/05/23 09:42 NM [id number]) Current Condition History of Current Condition Onset Date March 2023 Current Complaints pain, movement limits History of Current Condition Pt presents with a work injury from [facility]2023. He states that the injury was low back pain then now radiates from L side of hip to ankle. He had a muscle relaxer and a steroid, which helped. He has pain mostly after walking around or putting pressure on his L thigh. States that back pain is primarily gone, but his leg pain is the most problematic (resolved in 3.5 weeks). Pt was injured when lifting from a crouched position, hit his back against rudder and shifted his weight on his back; he felt pain immediately and dropped to the ground; he continued working. 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 For his job , he needs to be able to crouch (move small spaces), flexibility, lifting heavy objects (130-150#). He has pain with extending his leg from hip flexion. Prior Treatments and Tests Radiographs 05/2023: no acute bony abnormalities or degenerative changes Treatment Goals Patient/Caregiver Goals work w/o pain Current Functional Impairments (Reported) Functional Limitations- Mobility/Gait 2-3 hr walking Functional Limitations- Work/School 8-10 hrs for 5 days/wk Functional Limitations- Recreation/ unable to perform leg workouts Hobbies (cardio ok)- strength training (leg press, calf raises, leg extension) after a specific weight and reps, 3x/ wk; currently unable to workout Functional Limitations- Other Reports 80-85% unable to perform normal activities at worst PT-OP-C Subjective Start: 07/05/23 09:26 Freq: Status: Active Protocol: Document 08/14/23 07:28 NM (Rec: 08/14/23 08:18 NM [id number]) OP-PT Subjective Patient Comments Patient Comments Pt late to session. 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 He is trying to stretch and stand more often, which helps. He reports less frequent pain and discomfort, less intensity of pain as well. PT-OP-E Functional Tests Start: 07/05/23 09:26 Freq: Status: Active Protocol: Document 07/04/23 07:30 NM (Rec: 07/05/23 09:42 NM [id number]) Functional Tests Other Forward Trunk Flexion Test Name of Test measured finger tip to floor Score 10 Comment increase in symptoms down legs PT-OP-F Manual Assessment Start: 07/05/23 09:26 Freq: Status: Active Protocol: Document 07/04/23 07:30 NM (Rec: 07/05/23 09:42 NM [id number]) Manual Assessments Soft Tissue Assessment Soft Tissue Mobility Assessment Increased hamstring tightness. Decreased hip flexor length. Increased tenderness of L hip and calf Joint Mobility Assessment Joint Mobility Assessment Hypomobility of lumbar spine, slight L deviation of lumbar spine. Limited hip mobility into flexion, decreased B ankle DF PT-OP-G Mobility & Gait Start: 07/05/23 09:26 Freq: Status: Active Protocol: Document 07/04/23 07:30 NM (Rec: 07/05/23 09:42 NM [id number]) OP Gait Assessment Gait Gait Assistance Required: Independent Distance (Feet) 150 Gait Deviations General Gait Pattern Antalgic,Lateral Trunk Lean Factors Limiting Gait Function Factors Limiting Gait Function Decreased Activity Tolerance, Limited Range of Motion,Pain Comments Gait Comments Demos R lateral trunk lean PT-OP-H Neuro Start: 07/05/23 09:26 Freq: Status: Active Protocol: Document 07/04/23 07:30 NM (Rec: 07/05/23 09:42 NM [id number]) Sensation Evaluation Comments Summary Comments BLE intact equally to light touch sensation Deep Tendon Reflex & Clonus Assessment Deep Tendon Reflex Bilateral Achilles Deep Tendon Reflex 1+ Diminished Bilateral Patellar Deep Tendon Reflex 2+ Normal PT-OP-J Posture/Palpation/Skin Start: 07/05/23 09:26 Freq: Status: Active Protocol: Document 07/04/23 07:30 NM (Rec: 07/05/23 09:42 NM [id number]) Posture Evaluation Position Standing Head/C-Spine Posture Forward Head L-Spine Posture Increased Lordosis,Shifted Right Pelvis Posture Anteriorly Tilted Weight Distribution Weight Shifted Right Hip Posture (L) Externally Rotated,(R) Externally Rotated Knee Posture (L) Genu Varus,(R) Genu Varus Palpation Assessment Location lumbar spine Palpation Findings Soft Tissue Tightness, Tenderness Palpation Details tenderness along L lateral spine, tightness of L lateral paraspinals No tenderness along midline spine Slight L deviation from midline along spine near L3 L leg Palpation Findings Edema,Tenderness Palpation Details tenderness along L calf in muscle belly tenderness along L glute/ piriformis, lateral hip PT-OP-K Range of Motion Start: 07/05/23 09:26 Freq: Status: Active Protocol: Document 08/07/23 07:31 NM (Rec: 08/07/23 08:23 NM [id number]) Lumbar Spine Range of Motion Lumbar Spine Active Percentage Flexion 75 Extension 100 Rotation Left 10 Rotation Right 6 Lateral Flexion Left 100 Lateral Flexion Right 100 ROM Limitations Soft Tissue Tightness Comments 10; tightness along L lateral leg with flexion 08/07/23: 6 from floor w/ flexion PT-OP-L Special Tests Start: 07/05/23 09:26 Freq: Status: Active Protocol: Document 07/04/23 07:30 NM (Rec: 07/05/23 09:42 NM [id number]) Special Tests Lumbar Spine Special Tests Brice/Quadrant Test Results + Comments R 3D reproduces to L side Distraction Test Results + Slump Test Results + Comments bilateral Straight Leg Raise Test Results + Comments bilateral PT-OP-M Strength Start: 07/05/23 09:26 Freq: Status: Active Protocol: Document 08/07/23 07:31 NM (Rec: 08/07/23 08:17 NM [id number]) Hip Strength Hip Manual Muscle Testing Left Flexion (L2) 4+ Good+ Extension (S1) 4 Good Abduction 4- Good- Adduction 4+ Good+ External Rotation 4+ Good+ Internal Rotation 4+ Good+ Comments IR resisted reproduces 08/07/23: 4+/5 hip abd and ext, mild back pain with AROM hip ext PT-OP-Q Treatments Start: 07/05/23 09:26 Freq: Status: Active Protocol: Document 08/14/23 07:28 NM (Rec: 08/14/23 08:18 NM [id number]) Therapeutic Exercises Supine Exercises bridge Supine Exercise Name 1. single leg bridge, 2. hip thrusters off plinth Equipment Used pool noodle for visual feedback about level pelvis Reps/Minutes 1. 1x5, 2. 10 AROM , 10 w/ 10# db Comments segmental; cued for form nerve glide Supine Exercise Name with HS mobilization Side left Equipment Used plinth Reps/Minutes 60 Prone Exercises plank Prone Exercise Name 1. plank on elbows for time, 2 . with hip extension Reps/Minutes 1. 42, 2. 5 ea leg Comments L SIJ pain (mild), less w/ hip ext Standing Exercises RDL Standing Exercise Name staggered stance w/ hip hinge Side bilateral Resistance AROM only Reps/Minutes 10 ea Comments cued for hip hinge, neutral spine lumbar extension Standing Exercise Name post hip thrusters for stretching Reps/Minutes 10 Comments feels good Other Exercises self soft tissue mobilization Other Exercise Name foam roller: HS Side bilateral Reps/Minutes 2 min PT-OP-T Assessment and Plan Start: 07/05/23 09:26 Freq: Status: Active Protocol: Document 08/14/23 07:28 NM (Rec: 08/14/23 08:18 NM [id number]) Physical Therapy Assessment Goals Six Impairment return to work Short Term Goal (STG) Pt will report that he is able to perform at least 50% of job functions without increase in baseline pain 07/19/23: reports 85-90% of job function, but reports difficulty with sustained positioning 08/07/23: 95-100% (forcing L leg into WB with hip ER) STG Duration 6 weeks [facility] [employer] Goal (LTG) Pt will report that he is able to perform at least 75% of job functions without increase in baseline pain or if appropriate, pt will be referred to work conditioning in order to return to work 08/07/23: 95-100% LTG Duration 12 weeks Five Impairment ROM Impairment forward flexion test 10 from ground Short Term Goal (STG) Pt will be able to reach < 10 from the ground during forward trunk flexion test in order to demonstrate improvement in hamstring length and decrease neural tension. 08/07/23: 6, tight hamstrings but pain free STG Duration 6 weeks MET [employer] Goal (LTG) Pt will be able to reach < 6 from the ground during forward trunk flexion test in order to demonstrate improvement in hamstring length and decrease neural tension. 08/14/23: 4 from ground LTG Duration 12 weeks Four Impairment squats Impairment difficulty with maintaining squat position at work due to pain Short Term Goal (STG) Pt will be able to perform at least 10 squats without compensation or increase in baseline pain in order to perform necessary job requirements 08/07/23: 10 AROM w/o pain and improved form, goblet squat 10 # with cues for core bracing and to minimize breath holding STG Duration 6 weeks [facility] [employer] Goal (LTG) Pt will be able to perform at least 20 squats with resistance and without compensation or increase in baseline pain in order to perform necessary job requirements LTG Duration 12 weeks Three Impairment strength Impairment L hip ext 4/5 and abd 4-/5 MMT Short Term Goal (STG) Pt will improve L hip ext and abduction strength to at least 4+/5 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 08/07/23: 4+/5, slight back pain with hip extension STG Duration 6 weeks MET Intermediate Goal (LTG) Pt will improve L hip ext and abduction strength to at least 5/5 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 LTG Duration 12 weeks Two Impairment strength, stabilization Impairment plank 8 seconds side plank, 10 seconds front plank on elbows Short Term Goal (STG) Pt will be able to perform a plank (full or modified) for at least 45 seconds without signs of instability or increase in baseline pain in order to demonstrate improved core strength for ADLs and work 08/07/23: 30 seconds before sides of instability, pain free STG Duration 6 weeks NOT MET [employer] Goal (LTG) Pt will be able to perform a plank (full or modified) for at least 60 seconds without signs of instability or increase in baseline pain in order to demonstrate improved core strength for ADLs and work LTG Duration 12 weeks One Impairment HEP Impairment not performing HEP Short Term Goal (STG) Pt will report that he is performing HEP at least 2-3x/ wk in order to maximize progression with PT and promote independence with rehabilitation. 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 LTG Duration 12 weeks Assessment Summary Assessment Pt tolerated session fair. He has L SIJ pain with extension based activities. Pt demonstrates improved coordination of breath work and core activation; however, he continues to require cues for form. Pt responds well to stretching. Re-trialed SL bridge. Pt cued for form, as he has tendency for opposite hip drop. Progressed double leg bridge to hip thrusters off plinth, which pt has improved tolerance for (still has L SIJ pain but much less). Pt making progress with hamstring length and stretching, which still continues to be significant limiting factor. He would benefit from skilled PT for body mechanics training, to improve flexibility, and decrease pain symptoms in order to perform his job with less discomfort. Physical Therapy Plan Frequency and Duration Frequency of Treatment 1-2x/wk Duration of treatment (weeks) 12 Plan of Care Start Date 07/04/23 Plan of Care End Date 09/29/23 Therapeutic Interventions Therapeutic Interventions Balance Training,Gait Training ,Home Exercise Program,Joint Mobilizations,Manual Therapy, Neuromuscular Re-education, Orthotic/Prosthetic Management ,Patient/Caregiver Education, Self-Care/Home Management, Sensory Integration,Soft Tissue Mobilization,Taping, Therapeutic Activities, Therapeutic Exercises Modalities Cold Pack/Ice Massage,Electric Stimulation,Hot Packs, Traction- Mechanical, Ultrasound Other Therapeutic Interventions pelvic realignment Next Visit Focus/Plan Next Note Type Treatment Note Next Visit Plan Address SIJ, glute strength, retry staggered RDL, plank trial single leg bridge vs quad hip ext, glute strengthening (s/l abd, side steps, hip 3 way), goblet squat, lumbar and hip stretch. Cont with stretching HS, glutes, hip flexors, calves. Hip IR/ER mobility. Address ITB as needed Next session: manual and MWM to piriformis Progress core: side planks ( modified), full planks (add hip ext, abd as able) Focus on improving flexibility , flexion biased core. Avoid extension. stretching: hip ER manual: low back, glutes
--- NOTE | 2023-08-18 13:03 | PT.OTN ---
Current Diagnoses Other lack of coordination (08/18/23) Weakness (08/18/23) Strain of muscle, fascia and tendon of lower back, subsequent encounter (08/18/23) Physical Therapy Treatment Note PT-OP-A Visit Information Start: 07/05/23 09:26 Freq: Status: Active Protocol: Document 08/18/23 07:33 NM (Rec: 08/18/23 08:18 NM [id number]) Out-Patient Physical Therapy Visit Information Visit Information Visit Type Treatment Note Visit Note 12 visits Visit Start Time 07:37 Visit Stop Time 08:15 Visit Number 01/01 Evaluation Information Evaluation Date 07/04/23 PT-OP-B Current Condition Start: 07/05/23 09:26 Freq: Status: Active Protocol: Document 07/04/23 07:30 NM (Rec: 07/05/23 09:42 NM [id number]) Current Condition History of Current Condition Onset Date March 2023 Current Complaints pain, movement limits History of Current Condition Pt presents with a work injury from [facility]2023. He states that the injury was low back pain then now radiates from L side of hip to ankle. He had a muscle relaxer and a steroid, which helped. He has pain mostly after walking around or putting pressure on his L thigh. States that back pain is primarily gone, but his leg pain is the most problematic (resolved in 3.5 weeks). Pt was injured when lifting from a crouched position, hit his back against rudder and shifted his weight on his back; he felt pain immediately and dropped to the ground; he continued working. 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 For his job , he needs to be able to crouch (move small spaces), flexibility, lifting heavy objects (130-150#). He has pain with extending his leg from hip flexion. Prior Treatments and Tests Radiographs 05/2023: no acute bony abnormalities or degenerative changes Treatment Goals Patient/Caregiver Goals work w/o pain Current Functional Impairments (Reported) Functional Limitations- Mobility/Gait 2-3 hr walking Functional Limitations- Work/School 8-10 hrs for 5 days/wk Functional Limitations- Recreation/ unable to perform leg workouts Hobbies (cardio ok)- strength training (leg press, calf raises, leg extension) after a specific weight and reps, 3x/ wk; currently unable to workout Functional Limitations- Other Reports 80-85% unable to perform normal activities at worst PT-OP-C Subjective Start: 07/05/23 09:26 Freq: Status: Active Protocol: Document 08/18/23 07:33 NM (Rec: 08/18/23 08:18 NM [id number]) OP-PT Subjective Patient Comments Patient Comments Pt late to session. Reports L sided SIJ pain, no longer having neural symptoms. States had to do a lot of courching PT-OP-E Functional Tests Start: 07/05/23 09:26 Freq: Status: Active Protocol: Document 07/04/23 07:30 NM (Rec: 07/05/23 09:42 NM [id number]) Functional Tests Other Forward Trunk Flexion Test Name of Test measured finger tip to floor Score 10 Comment increase in symptoms down legs PT-OP-F Manual Assessment Start: 07/05/23 09:26 Freq: Status: Active Protocol: Document 07/04/23 07:30 NM (Rec: 07/05/23 09:42 NM [id number]) Manual Assessments Soft Tissue Assessment Soft Tissue Mobility Assessment Increased hamstring tightness. Decreased hip flexor length. Increased tenderness of L hip and calf Joint Mobility Assessment Joint Mobility Assessment Hypomobility of lumbar spine, slight L deviation of lumbar spine. Limited hip mobility into flexion, decreased B ankle DF PT-OP-G Mobility & Gait Start: 07/05/23 09:26 Freq: Status: Active Protocol: Document 07/04/23 07:30 NM (Rec: 07/05/23 09:42 NM [id number]) OP Gait Assessment Gait Gait Assistance Required: Independent Distance (Feet) 150 Gait Deviations General Gait Pattern Antalgic,Lateral Trunk Lean Factors Limiting Gait Function Factors Limiting Gait Function Decreased Activity Tolerance, Limited Range of Motion,Pain Comments Gait Comments Demos R lateral trunk lean PT-OP-H Neuro Start: 07/05/23 09:26 Freq: Status: Active Protocol: Document 07/04/23 07:30 NM (Rec: 07/05/23 09:42 NM [id number]) Sensation Evaluation Comments Summary Comments BLE intact equally to light touch sensation Deep Tendon Reflex & Clonus Assessment Deep Tendon Reflex Bilateral Achilles Deep Tendon Reflex 1+ Diminished Bilateral Patellar Deep Tendon Reflex 2+ Normal PT-OP-J Posture/Palpation/Skin Start: 07/05/23 09:26 Freq: Status: Active Protocol: Document 07/04/23 07:30 NM (Rec: 07/05/23 09:42 NM [id number]) Posture Evaluation Position Standing Head/C-Spine Posture Forward Head L-Spine Posture Increased Lordosis,Shifted Right Pelvis Posture Anteriorly Tilted Weight Distribution Weight Shifted Right Hip Posture (L) Externally Rotated,(R) Externally Rotated Knee Posture (L) Genu Varus,(R) Genu Varus Palpation Assessment Location lumbar spine Palpation Findings Soft Tissue Tightness, Tenderness Palpation Details tenderness along L lateral spine, tightness of L lateral paraspinals No tenderness along midline spine Slight L deviation from midline along spine near L3 L leg Palpation Findings Edema,Tenderness Palpation Details tenderness along L calf in muscle belly tenderness along L glute/ piriformis, lateral hip PT-OP-K Range of Motion Start: 07/05/23 09:26 Freq: Status: Active Protocol: Document 08/07/23 07:31 NM (Rec: 08/07/23 08:23 NM [id number]) Lumbar Spine Range of Motion Lumbar Spine Active Percentage Flexion 75 Extension 100 Rotation Left 10 Rotation Right 6 Lateral Flexion Left 100 Lateral Flexion Right 100 ROM Limitations Soft Tissue Tightness Comments 10; tightness along L lateral leg with flexion 08/07/23: 6 from floor w/ flexion PT-OP-L Special Tests Start: 07/05/23 09:26 Freq: Status: Active Protocol: Document 07/04/23 07:30 NM (Rec: 07/05/23 09:42 NM [id number]) Special Tests Lumbar Spine Special Tests Brice/Quadrant Test Results + Comments R 3D reproduces to L side Distraction Test Results + Slump Test Results + Comments bilateral Straight Leg Raise Test Results + Comments bilateral PT-OP-M Strength Start: 07/05/23 09:26 Freq: Status: Active Protocol: Document 08/07/23 07:31 NM (Rec: 08/07/23 08:17 NM [id number]) Hip Strength Hip Manual Muscle Testing Left Flexion (L2) 4+ Good+ Extension (S1) 4 Good Abduction 4- Good- Adduction 4+ Good+ External Rotation 4+ Good+ Internal Rotation 4+ Good+ Comments IR resisted reproduces 08/07/23: 4+/5 hip abd and ext, mild back pain with AROM hip ext PT-OP-Q Treatments Start: 07/05/23 09:26 Freq: Status: Active Protocol: Document 08/18/23 07:33 NM (Rec: 08/18/23 08:18 NM [id number]) Therapeutic Exercises Supine Exercises bridge Supine Exercise Name DL bridge segmental: 1. hip ABD, 2. hip ADD Side bilateral Reps/Minutes 1. 10, 2. 10 Comments improved breathing and core brace, no SIJ Standing Exercises RDL Standing Exercise Name kickstand RDL with hip IR Side bilateral Reps/Minutes 5 ea Comments cued neutral spine with self tactile cue for hinge; mild SIJ w/ hinge modified pigeon stretch Standing Exercise Name leg in figure 4 elevated on table, slight trunk flexion Side bilateral Reps/Minutes 1x60 ea Comments good feedback with stretch Other Exercises quadruped Other Exercise Name 1. hip ext, 2. hip IR w/ ADD, 3. hip hike Side bilateral Resistance level 2 band at ankle for hip IR Equipment Used dowel for hip ext for neutral spine, ball for hip ADD Reps/Minutes 1. 10 ea, 2. 2x10, 3. 10 ea Comments cued core brace w/ hip ext and hike Manual Therapy Treatment Consent Patient gave verbal consent for manual Yes treatment Soft Tissue Mobilization glutes/piriformis/hamstrings/calves Body Location L sided Mobilization Type Instrument Assisted, Oscillations,Rolling,Sustained Pressure Intensity/Depth Moderate Body Position Prone Comments Tenderness along L glutes/ piriformis to palpation. Reduced with gentle > moderate soft tissue mobilization, less tightness following mobilization. Educated to perform at home lumbar paraspinals Body Location L paraspinals, QL Mobilization Type Oscillations,Rolling Intensity/Depth Moderate Body Position Prone Comments Tightness of L paraspinals and QL, reduced with rolling and oscillation, less than previous sessions. Reports muscle relaxation Joint Mobilizations L SIJ Direction P-A Grade II Body Position Prone Reps/Duration 2x30 Comments For pain reduction, monitored for pain and symptoms. Pt reports pain reduction at SIJ with gentle mobilization PT-OP-T Assessment and Plan Start: 07/05/23 09:26 Freq: Status: Active Protocol: Document 08/18/23 07:33 NM (Rec: 08/18/23 08:18 NM [id number]) Physical Therapy Assessment Goals Six Impairment return to work Short Term Goal (STG) Pt will report that he is able to perform at least 50% of job functions without increase in baseline pain 07/19/23: reports 85-90% of job function, but reports difficulty with sustained positioning 08/07/23: 95-100% (forcing L leg into WB with hip ER) STG Duration 6 weeks MET [employer] Specialist Goal (LTG) Pt will report that he is able to perform at least 75% of job functions without increase in baseline pain or if appropriate, pt will be referred to work conditioning in order to return to work 08/07/23: 95-100% LTG Duration 12 weeks Five Impairment ROM Impairment forward flexion test 10 from ground Short Term Goal (STG) Pt will be able to reach < 10 from the ground during forward trunk flexion test in order to demonstrate improvement in hamstring length and decrease neural tension. 08/07/23: 6, tight hamstrings but pain free STG Duration 6 weeks MET Residential Goal (LTG) Pt will be able to reach < 6 from the ground during forward trunk flexion test in order to demonstrate improvement in hamstring length and decrease neural tension. 08/14/23: 4 from ground LTG Duration 12 weeks Four Impairment squats Impairment difficulty with maintaining squat position at work due to pain Short Term Goal (STG) Pt will be able to perform at least 10 squats without compensation or increase in baseline pain in order to perform necessary job requirements 08/07/23: 10 AROM w/o pain and improved form, goblet squat 10 # with cues for core bracing and to minimize breath holding STG Duration 6 weeks [facility] Residential Goal (LTG) Pt will be able to perform at least 20 squats with resistance and without compensation or increase in baseline pain in order to perform necessary job requirements LTG Duration 12 weeks Three Impairment strength Impairment L hip ext 4/5 and abd 4-/5 MMT Short Term Goal (STG) Pt will improve L hip ext and abduction strength to at least 4+/5 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 08/07/23: 4+/5, slight back pain with hip extension STG Duration 6 weeks [facility] Residential Goal (LTG) Pt will improve L hip ext and abduction strength to at least 5/5 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 LTG Duration 12 weeks Two Impairment strength, stabilization Impairment plank 8 seconds side plank, 10 seconds front plank on elbows Short Term Goal (STG) Pt will be able to perform a plank (full or modified) for at least 45 seconds without signs of instability or increase in baseline pain in order to demonstrate improved core strength for ADLs and work 08/07/23: 30 seconds before sides of instability, pain free STG Duration 6 weeks NOT MET [employer] Specialist Goal (LTG) Pt will be able to perform a plank (full or modified) for at least 60 seconds without signs of instability or increase in baseline pain in order to demonstrate improved core strength for ADLs and work LTG Duration 12 weeks One Impairment HEP Impairment not performing HEP Short Term Goal (STG) Pt will report that he is performing HEP at least 2-3x/ wk in order to maximize progression with PT and promote independence with rehabilitation. 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 LTG Duration 12 weeks Assessment Summary Assessment Pt with improved tolerance for exercise today. Emphasis on reduction of pain symptoms at SIJ and decreasing muscle imbalances. Pt's pain reproduced with weightbearing direction on LLE, e.g. on knee . Initiated quadruped hip hike , hip extension, and hip IR. Pt has limited hip mobility still, but only has symptom reproduction with quadruped hip extension. Continued with segmental bridge for lumbopelvic stability, biased to SIJ with hip ADD and hip ABD. Overall, pt demonstrates improved ability to coordinate breath work with activity and brace his core. Retrialed kickstand RDL, but pt has symptom reproduction. Reduced with segmental bridging and isometric hip ext in sitting. Pt would benefit from skilled PT for further hip mobility, flexibility, and trunk/core strengthening for symptom management and activity tolerance. Physical Therapy Plan Frequency and Duration Frequency of Treatment 1-2x/wk Duration of treatment (weeks) 12 Plan of Care Start Date 07/04/23 Plan of Care End Date 09/29/23 Therapeutic Interventions Therapeutic Interventions Balance Training,Gait Training ,Home Exercise Program,Joint Mobilizations,Manual Therapy, Neuromuscular Re-education, Orthotic/Prosthetic Management ,Patient/Caregiver Education, Self-Care/Home Management, Sensory Integration,Soft Tissue Mobilization,Taping, Therapeutic Activities, Therapeutic Exercises Modalities Cold Pack/Ice Massage,Electric Stimulation,Hot Packs, Traction- Mechanical, Ultrasound Other Therapeutic Interventions pelvic realignment Next Visit Focus/Plan Next Note Type Treatment Note Next Visit Plan Address SIJ, glute strength, retry staggered RDL, plank with ext trial single leg bridge vs quad hip ext, glute strengthening (s/l abd, side steps, hip 3 way), goblet squat, lumbar and hip stretch. Cont with stretching HS, glutes, hip flexors, calves. Hip IR/ER mobility. Address ITB as needed Next session: manual and MWM to piriformis Progress core: side planks ( modified), full planks (add hip ext, abd as able) Focus on improving flexibility , flexion biased core. Avoid extension. stretching: hip ER manual: low back, glutes
--- NOTE | 2023-08-22 11:25 | PT.OTN ---
Current Diagnoses Other lack of coordination (08/22/23) Weakness (08/22/23) Strain of muscle, fascia and tendon of lower back, subsequent encounter (08/22/23) Physical Therapy Treatment Note PT-OP-A Visit Information Start: 07/05/23 09:26 Freq: Status: Active Protocol: Document 08/22/23 07:36 NM (Rec: 08/22/23 08:18 NM [id number]) Out-Patient Physical Therapy Visit Information Visit Information Visit Type Treatment Note Visit Note 12 visits Visit Start Time 07:37 Visit Stop Time 08:15 Visit Number 01/31 Evaluation Information Evaluation Date 07/04/23 PT-OP-B Current Condition Start: 07/05/23 09:26 Freq: Status: Active Protocol: Document 07/04/23 07:30 NM (Rec: 07/05/23 09:42 NM [id number]) Current Condition History of Current Condition Onset Date March 2023 Current Complaints pain, movement limits History of Current Condition Pt presents with a work injury from the [facility]. He states that the injury was low back pain then now radiates from L side of hip to ankle. He had a muscle relaxer and a steroid, which helped. He has pain mostly after walking around or putting pressure on his L thigh. States that back pain is primarily gone, but his leg pain is the most problematic (resolved in 3.5 weeks). Pt was injured when lifting from a crouched position, hit his back against rudder and shifted his weight on his back; he felt pain immediately and dropped to the ground; he continued working. 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 For his job , he needs to be able to crouch (move small spaces), flexibility, lifting heavy objects (130-150#). He has pain with extending his leg from hip flexion. Prior Treatments and Tests Radiographs 05/2023: no acute bony abnormalities or degenerative changes Treatment Goals Patient/Caregiver Goals work w/o pain Current Functional Impairments (Reported) Functional Limitations- Mobility/Gait 2-3 hr walking Functional Limitations- Work/School 8-10 hrs for 5 days/wk Functional Limitations- Recreation/ unable to perform leg workouts Hobbies (cardio ok)- strength training (leg press, calf raises, leg extension) after a specific weight and reps, 3x/ wk; currently unable to workout Functional Limitations- Other Reports 80-85% unable to perform normal activities at worst PT-OP-C Subjective Start: 07/05/23 09:26 Freq: Status: Active Protocol: Document 08/22/23 07:36 NM (Rec: 08/22/23 08:18 NM [id number]) OP-PT Subjective Patient Comments Patient Comments Pt reports that he hasn't had any discomfort/pain due to his injury. He was not able to try any of the new HEP due to vacation. States that his trip was 9 hours, which wasn't too hard on his legs and he took several rest breaks which helped. States that his legs/ back are a lot better, reports less limitations at work. PT-OP-E Functional Tests Start: 07/05/23 09:26 Freq: Status: Active Protocol: Document 07/04/23 07:30 NM (Rec: 07/05/23 09:42 NM [id number]) Functional Tests Other Forward Trunk Flexion Test Name of Test measured finger tip to floor Score 10 Comment increase in symptoms down legs PT-OP-F Manual Assessment Start: 07/05/23 09:26 Freq: Status: Active Protocol: Document 07/04/23 07:30 NM (Rec: 07/05/23 09:42 NM [id number]) Manual Assessments Soft Tissue Assessment Soft Tissue Mobility Assessment Increased hamstring tightness. Decreased hip flexor length. Increased tenderness of L hip and calf Joint Mobility Assessment Joint Mobility Assessment Hypomobility of lumbar spine, slight L deviation of lumbar spine. Limited hip mobility into flexion, decreased B ankle DF PT-OP-G Mobility & Gait Start: 07/05/23 09:26 Freq: Status: Active Protocol: Document 07/04/23 07:30 NM (Rec: 07/05/23 09:42 NM [id number]) OP Gait Assessment Gait Gait Assistance Required: Independent Distance (Feet) 150 Gait Deviations General Gait Pattern Antalgic,Lateral Trunk Lean Factors Limiting Gait Function Factors Limiting Gait Function Decreased Activity Tolerance, Limited Range of Motion,Pain Comments Gait Comments Demos R lateral trunk lean PT-OP-H Neuro Start: 07/05/23 09:26 Freq: Status: Active Protocol: Document 07/04/23 07:30 NM (Rec: 07/05/23 09:42 NM [id number]) Sensation Evaluation Comments Summary Comments BLE intact equally to light touch sensation Deep Tendon Reflex & Clonus Assessment Deep Tendon Reflex Bilateral Achilles Deep Tendon Reflex 1+ Diminished Bilateral Patellar Deep Tendon Reflex 2+ Normal PT-OP-J Posture/Palpation/Skin Start: 07/05/23 09:26 Freq: Status: Active Protocol: Document 07/04/23 07:30 NM (Rec: 07/05/23 09:42 NM [id number]) Posture Evaluation Position Standing Head/C-Spine Posture Forward Head L-Spine Posture Increased Lordosis,Shifted Right Pelvis Posture Anteriorly Tilted Weight Distribution Weight Shifted Right Hip Posture (L) Externally Rotated,(R) Externally Rotated Knee Posture (L) Genu Varus,(R) Genu Varus Palpation Assessment Location lumbar spine Palpation Findings Soft Tissue Tightness, Tenderness Palpation Details tenderness along L lateral spine, tightness of L lateral paraspinals No tenderness along midline spine Slight L deviation from midline along spine near L3 L leg Palpation Findings Edema,Tenderness Palpation Details tenderness along L calf in muscle belly tenderness along L glute/ piriformis, lateral hip PT-OP-K Range of Motion Start: 07/05/23 09:26 Freq: Status: Active Protocol: Document 08/07/23 07:31 NM (Rec: 08/07/23 08:23 NM [id number]) Lumbar Spine Range of Motion Lumbar Spine Active Percentage Flexion 75 Extension 100 Rotation Left 10 Rotation Right 6 Lateral Flexion Left 100 Lateral Flexion Right 100 ROM Limitations Soft Tissue Tightness Comments 10; tightness along L lateral leg with flexion 08/07/23: 6 from floor w/ flexion PT-OP-L Special Tests Start: 07/05/23 09:26 Freq: Status: Active Protocol: Document 07/04/23 07:30 NM (Rec: 07/05/23 09:42 NM [id number]) Special Tests Lumbar Spine Special Tests Brice/Quadrant Test Results + Comments R 3D reproduces to L side Distraction Test Results + Slump Test Results + Comments bilateral Straight Leg Raise Test Results + Comments bilateral PT-OP-M Strength Start: 07/05/23 09:26 Freq: Status: Active Protocol: Document 08/07/23 07:31 NM (Rec: 08/07/23 08:17 NM [id number]) Hip Strength Hip Manual Muscle Testing Left Flexion (L2) 4+ Good+ Extension (S1) 4 Good Abduction 4- Good- Adduction 4+ Good+ External Rotation 4+ Good+ Internal Rotation 4+ Good+ Comments IR resisted reproduces 08/07/23: 4+/5 hip abd and ext, mild back pain with AROM hip ext PT-OP-Q Treatments Start: 07/05/23 09:26 Freq: Status: Active Protocol: Document 08/22/23 07:36 NM (Rec: 08/22/23 08:18 NM [id number]) Therapeutic Exercises Supine Exercises bridge Supine Exercise Name 1. DL segmental bridge with hip ABD, 2. eccentric bridge DL>SL Side bilateral Resistance level 3 band above knees Reps/Minutes 1. 10 with 2 hold at top, 2. 10 ea leg Comments improved breathwork and core bracing, segmental motion Prone Exercises plank Prone Exercise Name bear plank with fire hydrant Side bilateral Resistance level 3 band around thighs Reps/Minutes 4x5 Comments good coordination of breathwork, core bracing Sidelying Exercises side plank Sidelying Exercise Name modified plank- side tap Side bilateral Reps/Minutes 15 ea side Comments cued spinal alignment Standing Exercises hip flexion Standing Exercise Name iliopsoas march Side bilateral Resistance level 1 band at toes Reps/Minutes 20 ea side RDL Standing Exercise Name modified hip airplane Side bilateral Resistance AROM Equipment Used B hand support on table, small hip ext ROM on non- stabilizing leg Reps/Minutes 10 ea Comments cued hip hinge; difficulty coordinating squat Standing Exercise Name goblet squat Side bilateral Resistance 10# db Reps/Minutes 2x10 Comments good form, core bracing modified pigeon stretch Standing Exercise Name leg in figure 4 elevated on table, slight trunk flexion Side bilateral Reps/Minutes 1x60 ea Comments good feedback with stretch hip flexor stretch Standing Exercise Name 1/2 kneel on mat with trunk lateral flexion reach Side bilateral Reps/Minutes 1x60 Comments cued ppt Other Exercises hip stretching Other Exercise Name Hip ADD mobility: ER bias, then IR bias with trunk rotation Side bilateral Equipment Used 1/2 kneel on mat Reps/Minutes 10 ER, 10 IR Self-Care/Home Management Treatment Education Patient Education Home Exercise Program Other Education HEP review and condensation PT-OP-T Assessment and Plan Start: 07/05/23 09:26 Freq: Status: Active Protocol: Document 08/22/23 07:36 NM (Rec: 08/22/23 08:18 NM [id number]) Physical Therapy Assessment Goals Six Impairment return to work Short Term Goal (STG) Pt will report that he is able to perform at least 50% of job functions without increase in baseline pain 07/19/23: reports 85-90% of job function, but reports difficulty with sustained positioning 08/07/23: 95-100% (forcing L leg into WB with hip ER) STG Duration 6 weeks [facility] Goal (LTG) Pt will report that he is able to perform at least 75% of job functions without increase in baseline pain or if appropriate, pt will be referred to work conditioning in order to return to work 08/07/23: 95-100% LTG Duration 12 weeks Five Impairment ROM Impairment forward flexion test 10 from ground Short Term Goal (STG) Pt will be able to reach < 10 from the ground during forward trunk flexion test in order to demonstrate improvement in hamstring length and decrease neural tension. 08/07/23: 6, tight hamstrings but pain free STG Duration 6 weeks [facility] Goal (LTG) Pt will be able to reach < 6 from the ground during forward trunk flexion test in order to demonstrate improvement in hamstring length and decrease neural tension. 08/14/23: 4 from ground LTG Duration 12 weeks Four Impairment squats Impairment difficulty with maintaining squat position at work due to pain Short Term Goal (STG) Pt will be able to perform at least 10 squats without compensation or increase in baseline pain in order to perform necessary job requirements 08/07/23: 10 AROM w/o pain and improved form, goblet squat 10 # with cues for core bracing and to minimize breath holding STG Duration 6 weeks [facility] Goal (LTG) Pt will be able to perform at least 20 squats with resistance and without compensation or increase in baseline pain in order to perform necessary job requirements LTG Duration 12 weeks Three Impairment strength Impairment L hip ext 4/5 and abd 4-/5 MMT Short Term Goal (STG) Pt will improve L hip ext and abduction strength to at least 4+/5 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 08/07/23: 4+/5, slight back pain with hip extension STG Duration 6 weeks [facility] [employer] Goal (LTG) Pt will improve L hip ext and abduction strength to at least 5/5 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 LTG Duration 12 weeks Two Impairment strength, stabilization Impairment plank 8 seconds side plank, 10 seconds front plank on elbows Short Term Goal (STG) Pt will be able to perform a plank (full or modified) for at least 45 seconds without signs of instability or increase in baseline pain in order to demonstrate improved core strength for ADLs and work 08/07/23: 30 seconds before sides of instability, pain free 08/14/23: 42 seconds STG Duration 6 weeks NOT [facility] [employer] Work[employer] Goal (LTG) Pt will be able to perform a plank (full or modified) for at least 60 seconds without signs of instability or increase in baseline pain in order to demonstrate improved core strength for ADLs and work LTG Duration 12 weeks One Impairment HEP Impairment not performing HEP Short Term Goal (STG) Pt will report that he is performing HEP at least 2-3x/ wk in order to maximize progression with PT and promote independence with rehabilitation. 08/07/23: 3-4x/wk STG Duration 6 weeks [facility] [employer] Work[employer] Goal (LTG) Pt will report compliance with HEP at least 3x/wk in order to promote independence and transition into maintenance program after discharge from PT. LTG Duration 12 weeks Assessment Summary Assessment Pt tolerated session well without any reports of SIJ pain today. He demonstrates improved tolerance for hip mobility in multiple directions and flexibility. Pt continues to have good feedback to bridges to address SIJ discomfort. Trialed eccentric single leg bridge to maximize glute activation and progress toward improved ipsilateral glute stabilization at the SIJ. Pt has good feedback for eccentric bridge. Continued with core strengthening, progressing modified side plank to hip tap and bear plank with hip abd/ER for increased glute strengthening. Due to uncertainty regarding further PT authorization for pt, part of session emphasis on creating maintenance program. Pt reports overall improvements in flexibility and pain management. Pt would benefit from skilled PT for further progressive trunk/core /hip strengthening in order to improve activity tolerance and lifting mechanics for work requirements and to return to PLOF. Physical Therapy Plan Frequency and Duration Frequency of Treatment 1-2x/wk Duration of treatment (weeks) 12 Plan of Care Start Date 07/04/23 Plan of Care End Date 09/29/23 Therapeutic Interventions Therapeutic Interventions Balance Training,Gait Training ,Home Exercise Program,Joint Mobilizations,Manual Therapy, Neuromuscular Re-education, Orthotic/Prosthetic Management ,Patient/Caregiver Education, Self-Care/Home Management, Sensory Integration,Soft Tissue Mobilization,Taping, Therapeutic Activities, Therapeutic Exercises Modalities Cold Pack/Ice Massage,Electric Stimulation,Hot Packs, Traction- Mechanical, Ultrasound Other Therapeutic Interventions pelvic realignment Next Visit Focus/Plan Next Note Type Treatment Note Next Visit Plan Cont with glute and core strength: trial lumbar ext on ball, eccentric vs SL bridge, side plank lift and lower, eccentric step back, step up, lateral step down, retrial SL RDL Cont with stretching HS, glutes, hip flexors, calves. Hip IR/ER mobility. Manual therapy as needed Progress core: side planks ( modified), full planks (add hip ext, abd as able) Focus on improving flexibility , flexion biased core. Avoid extension. stretching: hip ER manual: low back, glutes
--- NOTE | 2023-09-01 08:17 | PT.OTN ---
Current Diagnoses Other lack of coordination (09/01/23) Weakness (09/01/23) Strain of muscle, fascia and tendon of lower back, subsequent encounter (09/01/23) Physical Therapy Treatment Note PT-OP-A Visit Information Start: 07/05/23 09:26 Freq: Status: Active Protocol: Document 09/01/23 07:30 NM (Rec: 09/01/23 08:12 NM [id number]) Out-Patient Physical Therapy Visit Information Visit Information Visit Type Treatment Note Visit Note 2nd set of 12 visits 08/22 - Visit Start Time 07:37 Visit Stop Time 08:15 Visit Number 05/01 Evaluation Information Evaluation Date 07/04/23 PT-OP-B Current Condition Start: 07/05/23 09:26 Freq: Status: Active Protocol: Document 07/04/23 07:30 NM (Rec: 07/05/23 09:42 NM [id number]) Current Condition History of Current Condition Onset Date March 2023 Current Complaints pain, movement limits History of Current Condition Pt presents with a work injury from the [facility]. He states that the injury was low back pain then now radiates from L side of hip to ankle. He had a muscle relaxer and a steroid, which helped. He has pain mostly after walking around or putting pressure on his L thigh. States that back pain is primarily gone, but his leg pain is the most problematic (resolved in 3.5 weeks). Pt was injured when lifting from a crouched position, hit his back against rudder and shifted his weight on his back; he felt pain immediately and dropped to the ground; he continued working. 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 For his job , he needs to be able to crouch (move small spaces), flexibility, lifting heavy objects (130-150#). He has pain with extending his leg from hip flexion. Prior Treatments and Tests Radiographs 05/2023: no acute bony abnormalities or degenerative changes Treatment Goals Patient/Caregiver Goals work w/o pain Current Functional Impairments (Reported) Functional Limitations- Mobility/Gait 2-3 hr walking Functional Limitations- Work/School 8-10 hrs for 5 days/wk Functional Limitations- Recreation/ unable to perform leg workouts Hobbies (cardio ok)- strength training (leg press, calf raises, leg extension) after a specific weight and reps, 3x/ wk; currently unable to workout Functional Limitations- Other Reports 80-85% unable to perform normal activities at worst PT-OP-C Subjective Start: 07/05/23 09:26 Freq: Status: Active Protocol: Document 09/01/23 07:30 NM (Rec: 09/01/23 08:12 NM [id number]) OP-PT Subjective Patient Comments Patient Comments Pt reports that he hasn't had any significant issues with back or leg. He reports that he much less SIJ pain. PT-OP-E Functional Tests Start: 07/05/23 09:26 Freq: Status: Active Protocol: Document 07/04/23 07:30 NM (Rec: 07/05/23 09:42 NM [id number]) Functional Tests Other Forward Trunk Flexion Test Name of Test measured finger tip to floor Score 10 Comment increase in symptoms down legs PT-OP-F Manual Assessment Start: 07/05/23 09:26 Freq: Status: Active Protocol: Document 07/04/23 07:30 NM (Rec: 07/05/23 09:42 NM [id number]) Manual Assessments Soft Tissue Assessment Soft Tissue Mobility Assessment Increased hamstring tightness. Decreased hip flexor length. Increased tenderness of L hip and calf Joint Mobility Assessment Joint Mobility Assessment Hypomobility of lumbar spine, slight L deviation of lumbar spine. Limited hip mobility into flexion, decreased B ankle DF PT-OP-G Mobility & Gait Start: 07/05/23 09:26 Freq: Status: Active Protocol: Document 07/04/23 07:30 NM (Rec: 07/05/23 09:42 NM [id number]) OP Gait Assessment Gait Gait Assistance Required: Independent Distance (Feet) 150 Gait Deviations General Gait Pattern Antalgic,Lateral Trunk Lean Factors Limiting Gait Function Factors Limiting Gait Function Decreased Activity Tolerance, Limited Range of Motion,Pain Comments Gait Comments Demos R lateral trunk lean PT-OP-H Neuro Start: 07/05/23 09:26 Freq: Status: Active Protocol: Document 07/04/23 07:30 NM (Rec: 07/05/23 09:42 NM [id number]) Sensation Evaluation Comments Summary Comments BLE intact equally to light touch sensation Deep Tendon Reflex & Clonus Assessment Deep Tendon Reflex Bilateral Achilles Deep Tendon Reflex 1+ Diminished Bilateral Patellar Deep Tendon Reflex 2+ Normal PT-OP-J Posture/Palpation/Skin Start: 07/05/23 09:26 Freq: Status: Active Protocol: Document 07/04/23 07:30 NM (Rec: 07/05/23 09:42 NM [id number]) Posture Evaluation Position Standing Head/C-Spine Posture Forward Head L-Spine Posture Increased Lordosis,Shifted Right Pelvis Posture Anteriorly Tilted Weight Distribution Weight Shifted Right Hip Posture (L) Externally Rotated,(R) Externally Rotated Knee Posture (L) Genu Varus,(R) Genu Varus Palpation Assessment Location lumbar spine Palpation Findings Soft Tissue Tightness, Tenderness Palpation Details tenderness along L lateral spine, tightness of L lateral paraspinals No tenderness along midline spine Slight L deviation from midline along spine near L3 L leg Palpation Findings Edema,Tenderness Palpation Details tenderness along L calf in muscle belly tenderness along L glute/ piriformis, lateral hip PT-OP-K Range of Motion Start: 07/05/23 09:26 Freq: Status: Active Protocol: Document 08/07/23 07:31 NM (Rec: 08/07/23 08:23 NM [id number]) Lumbar Spine Range of Motion Lumbar Spine Active Percentage Flexion 75 Extension 100 Rotation Left 10 Rotation Right 6 Lateral Flexion Left 100 Lateral Flexion Right 100 ROM Limitations Soft Tissue Tightness Comments 10; tightness along L lateral leg with flexion 08/07/23: 6 from floor w/ flexion PT-OP-L Special Tests Start: 07/05/23 09:26 Freq: Status: Active Protocol: Document 07/04/23 07:30 NM (Rec: 07/05/23 09:42 NM [id number]) Special Tests Lumbar Spine Special Tests Brice/Quadrant Test Results + Comments R 3D reproduces to L side Distraction Test Results + Slump Test Results + Comments bilateral Straight Leg Raise Test Results + Comments bilateral PT-OP-M Strength Start: 07/05/23 09:26 Freq: Status: Active Protocol: Document 08/07/23 07:31 NM (Rec: 08/07/23 08:17 NM [id number]) Hip Strength Hip Manual Muscle Testing Left Flexion (L2) 4+ Good+ Extension (S1) 4 Good Abduction 4- Good- Adduction 4+ Good+ External Rotation 4+ Good+ Internal Rotation 4+ Good+ Comments IR resisted reproduces 08/07/23: 4+/5 hip abd and ext, mild back pain with AROM hip ext PT-OP-Q Treatments Start: 07/05/23 09:26 Freq: Status: Active Protocol: Document 09/01/23 07:30 NM (Rec: 09/01/23 08:12 NM [id number]) Therapeutic Exercises Sidelying Exercises lateral flexion Sidelying Exercise Name spinal lateral flexion w/ hip ER/IR-off plinth Side bilateral Reps/Minutes 2x10 Comments medium-hard; cued for form, pain free; R more challenging Standing Exercises step up Side bilateral Resistance AROM Equipment Used 8 step>6, mirror for visual feedback, hands on hips for cue to lvl pelvis Reps/Minutes 2x8 ea Comments cued for form, demos opp hip drop side steps Side bilateral Resistance level 2 band at toes Equipment Used squat position Reps/Minutes 2x10 ft Comments cued for foot clearance and form modified pigeon stretch Standing Exercise Name leg in figure 4 elevated on table, slight trunk flexion Side bilateral Reps/Minutes 1x60 ea Comments good feedback with stretch Other Exercises hip stretching Other Exercise Name 1. hip flexor stretch, 2. trialed: Z sit with active IR via contract-relax Side bilateral Equipment Used 1. foot elevated on plinth Reps/Minutes 1. 60 ea, 2. 8 ea (in position for 2 min ea) w/ 3 hip ER then active IR Comments challenging IR, limited ROM, cued for slight WS, edu for contract-relax Self-Care/Home Management Treatment Education Patient Education Home Exercise Program Other Education HEP: side steps with band at toes, issued level 2 band Blood pressure end of session: 134/83 mmHg Pt has followed up with PCP for blood pressure, reports normal at PCP PT-OP-T Assessment and Plan Start: 07/05/23 09:26 Freq: Status: Active Protocol: Document 09/01/23 07:30 NM (Rec: 09/01/23 08:12 NM [id number]) Physical Therapy Assessment Goals Six Impairment return to work Short Term Goal (STG) Pt will report that he is able to perform at least 50% of job functions without increase in baseline pain 07/19/23: reports 85-90% of job function, but reports difficulty with sustained positioning 08/07/23: 95-100% (forcing L leg into WB with hip ER) STG Duration 6 weeks MET Customer Support Representative Goal (LTG) Pt will report that he is able to perform at least 75% of job functions without increase in baseline pain or if appropriate, pt will be referred to work conditioning in order to return to work 08/07/23: 95-100% LTG Duration 12 weeks Five Impairment ROM Impairment forward flexion test 10 from ground Short Term Goal (STG) Pt will be able to reach < 10 from the ground during forward trunk flexion test in order to demonstrate improvement in hamstring length and decrease neural tension. 08/07/23: 6, tight hamstrings but pain free STG Duration 6 weeks MET Assisted Goal (LTG) Pt will be able to reach < 6 from the ground during forward trunk flexion test in order to demonstrate improvement in hamstring length and decrease neural tension. 08/14/23: 4 from ground LTG Duration 12 weeks Four Impairment squats Impairment difficulty with maintaining squat position at work due to pain Short Term Goal (STG) Pt will be able to perform at least 10 squats without compensation or increase in baseline pain in order to perform necessary job requirements 08/07/23: 10 AROM w/o pain and improved form, goblet squat 10 # with cues for core bracing and to minimize breath holding STG Duration 6 weeks MET Assisted Goal (LTG) Pt will be able to perform at least 20 squats with resistance and without compensation or increase in baseline pain in order to perform necessary job requirements LTG Duration 12 weeks Three Impairment strength Impairment L hip ext 4/5 and abd 4-/5 MMT Short Term Goal (STG) Pt will improve L hip ext and abduction strength to at least 4+/5 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 08/07/23: 4+/5, slight back pain with hip extension STG Duration 6 weeks MET Assisted Goal (LTG) Pt will improve L hip ext and abduction strength to at least 5/5 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 LTG Duration 12 weeks Two Impairment strength, stabilization Impairment plank 8 seconds side plank, 10 seconds front plank on elbows Short Term Goal (STG) Pt will be able to perform a plank (full or modified) for at least 45 seconds without signs of instability or increase in baseline pain in order to demonstrate improved core strength for ADLs and work 08/07/23: 30 seconds before sides of instability, pain free 08/14/23: 42 seconds STG Duration 6 weeks NOT MET Assisted Goal (LTG) Pt will be able to perform a plank (full or modified) for at least 60 seconds without signs of instability or increase in baseline pain in order to demonstrate improved core strength for ADLs and work LTG Duration 12 weeks One Impairment HEP Impairment not performing HEP Short Term Goal (STG) Pt will report that he is performing HEP at least 2-3x/ wk in order to maximize progression with PT and promote independence with rehabilitation. 08/07/23: 3-4x/wk STG Duration 6 weeks MET Customer Support Representative Goal (LTG) Pt will report compliance with HEP at least 3x/wk in order to promote independence and transition into maintenance program after discharge from PT. LTG Duration 12 weeks Assessment Summary Assessment Ruy tolerated session well . Continued with emphasizin stability of SIJ, lumbar strengthening, and hip mobility. Initiated lumbar lateral flexion off plinth, which was challenging for pt but pain free. Pt demonstrates improved control of hip ER/IR with lateral flexion, in addition to good tolerance to trialed Z sit. Pt unable to perform active IR at end range , but good effort using contract-relax to facilitate opposite muscle activation. Pt continues to progress better this session with minimizing SIJ pain, but he he has difficulty with maintaining level pelvis during step downs . Even with verbal, visual, and tactile cues, pt exhibits weakness in B glute medius. Pt would benefit from skilled PT for glute/lumbar strengthening and overall flexibility in order to improve activity tolerance, decrease injury risk, and improve symptom management. Physical Therapy Plan Frequency and Duration Frequency of Treatment 1-2x/wk Duration of treatment (weeks) 12 Plan of Care Start Date 07/04/23 Plan of Care End Date 09/29/23 Therapeutic Interventions Therapeutic Interventions Balance Training,Gait Training ,Home Exercise Program,Joint Mobilizations,Manual Therapy, Neuromuscular Re-education, Orthotic/Prosthetic Management ,Patient/Caregiver Education, Self-Care/Home Management, Sensory Integration,Soft Tissue Mobilization,Taping, Therapeutic Activities, Therapeutic Exercises Modalities Cold Pack/Ice Massage,Electric Stimulation,Hot Packs, Traction- Mechanical, Ultrasound Other Therapeutic Interventions pelvic realignment Next Visit Focus/Plan Next Note Type Treatment Note Next Visit Plan Glute medius strength (side steps at toes), step ups 6-8 step, lumbar ext on ball, lateral flex at plinth Cont with glute and core strength: trial lumbar ext on ball, eccentric vs SL bridge, side plank lift and lower, eccentric step back, step up, lateral step down, retrial SL RDL Cont with stretching HS, glutes, hip flexors, calves. Hip IR/ER mobility. Manual therapy as needed Progress core: side planks ( modified), full planks (add hip ext, abd as able) Focus on improving flexibility , flexion biased core. Avoid extension. stretching: hip ER manual: low back, glutes
--- NOTE | 2023-09-05 12:59 | PT.OTN ---
Current Diagnoses Other lack of coordination (09/05/23) Weakness (09/05/23) Strain of muscle, fascia and tendon of lower back, subsequent encounter (09/05/23) Physical Therapy Treatment Note PT-OP-A Visit Information Start: 07/05/23 09:26 Freq: Status: Active Protocol: Document 09/05/23 11:22 NBM (Rec: 09/05/23 12:06 NBM [id number]) Out-Patient Physical Therapy Visit Information Visit Information Visit Type Treatment Note Visit Note 2nd set of 12 visits 08/22 - Visit Start Time 11:27 Visit Stop Time 12:07 Visit Number 06/01 Number of [employer]PER[employer] Visits 1 Evaluation Information Evaluation Date 07/04/23 PT-OP-B Current Condition Start: 07/05/23 09:26 Freq: Status: Active Protocol: Document 07/04/23 07:30 NM (Rec: 07/05/23 09:42 NM [id number]) Current Condition History of Current Condition Onset Date March 2023 Current Complaints pain, movement limits History of Current Condition Pt presents with a work injury from the [facility]. He states that the injury was low back pain then now radiates from L side of hip to ankle. He had a muscle relaxer and a steroid, which helped. He has pain mostly after walking around or putting pressure on his L thigh. States that back pain is primarily gone, but his leg pain is the most problematic (resolved in 3.5 weeks). Pt was injured when lifting from a crouched position, hit his back against rudder and shifted his weight on his back; he felt pain immediately and dropped to the ground; he continued working. 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 For his job , he needs to be able to crouch (move small spaces), flexibility, lifting heavy objects (130-150#). He has pain with extending his leg from hip flexion. Prior Treatments and Tests Radiographs 05/2023: no acute bony abnormalities or degenerative changes Treatment Goals Patient/Caregiver Goals work w/o pain Current Functional Impairments (Reported) Functional Limitations- Mobility/Gait 2-3 hr walking Functional Limitations- Work/School 8-10 hrs for 5 days/wk Functional Limitations- Recreation/ unable to perform leg workouts Hobbies (cardio ok)- strength training (leg press, calf raises, leg extension) after a specific weight and reps, 3x/ wk; currently unable to workout Functional Limitations- Other Reports 80-85% unable to perform normal activities at worst PT-OP-C Subjective Start: 07/05/23 09:26 Freq: Status: Active Protocol: Document 09/05/23 11:22 NBM (Rec: 09/05/23 12:06 NBM [id number]) OP-PT Subjective Patient Comments Patient Comments Ruy reports some hip soreness in both hips. 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 No pain. He went to the gym once between two PT sessions last week and plans to go back this week. Patient Reported Progress Improving PT-OP-E Functional Tests Start: 07/05/23:26 Freq: Status: Active Protocol: Document 07/04/23 07:30 NM (Rec: 07/05/23 09:42 NM [id number]) Functional Tests Other Forward Trunk Flexion Test Name of Test measured finger tip to floor Score 10 Comment increase in symptoms down legs PT-OP-F Manual Assessment Start: 07/05/23: Freq: Status: Active Protocol: Document 07/04/23 07:30 NM (Rec: 07/05/23 09:42 NM [id number]) Manual Assessments Soft Tissue Assessment Soft Tissue Mobility Assessment Increased hamstring tightness. Decreased hip flexor length. Increased tenderness of L hip and calf Joint Mobility Assessment Joint Mobility Assessment Hypomobility of lumbar spine, slight L deviation of lumbar spine. Limited hip mobility into flexion, decreased B ankle DF PT-OP-G Mobility & Gait Start: 07/05/23:26 Freq: Status: Active Protocol: Document 07/04/23 07:30 NM (Rec: 07/05/23 09:42 NM [id number]) OP Gait Assessment Gait Gait Assistance Required: Independent Distance (Feet) 150 Gait Deviations General Gait Pattern Antalgic,Lateral Trunk Lean Factors Limiting Gait Function Factors Limiting Gait Function Decreased Activity Tolerance, Limited Range of Motion,Pain Comments Gait Comments Demos R lateral trunk lean PT-OP-H Neuro Start: 07/05/23 09:26 Freq: Status: Active Protocol: Document 07/04/23 07:30 NM (Rec: 07/05/23 09:42 NM [id number]) Sensation Evaluation Comments Summary Comments BLE intact equally to light touch sensation Deep Tendon Reflex & Clonus Assessment Deep Tendon Reflex Bilateral Achilles Deep Tendon Reflex 1+ Diminished Bilateral Patellar Deep Tendon Reflex 2+ Normal PT-OP-J Posture/Palpation/Skin Start: 07/05/23 09:26 Freq: Status: Active Protocol: Document 07/04/23 07:30 NM (Rec: 07/05/23 09:42 NM [id number]) Posture Evaluation Position Standing Head/C-Spine Posture Forward Head L-Spine Posture Increased Lordosis,Shifted Right Pelvis Posture Anteriorly Tilted Weight Distribution Weight Shifted Right Hip Posture (L) Externally Rotated,(R) Externally Rotated Knee Posture (L) Genu Varus,(R) Genu Varus Palpation Assessment Location lumbar spine Palpation Findings Soft Tissue Tightness, Tenderness Palpation Details tenderness along L lateral spine, tightness of L lateral paraspinals No tenderness along midline spine Slight L deviation from midline along spine near L3 L leg Palpation Findings Edema,Tenderness Palpation Details tenderness along L calf in muscle belly tenderness along L glute/ piriformis, lateral hip PT-OP-K Range of Motion Start: 07/05/23 09:26 Freq: Status: Active Protocol: Document 08/07/23 07:31 NM (Rec: 08/07/23 08:23 NM [id number]) Lumbar Spine Range of Motion Lumbar Spine Active Percentage Flexion 75 Extension 100 Rotation Left 10 Rotation Right 6 Lateral Flexion Left 100 Lateral Flexion Right 100 ROM Limitations Soft Tissue Tightness Comments 10; tightness along L lateral leg with flexion 08/07/23: 6 from floor w/ flexion PT-OP-L Special Tests Start: 07/05/23 09:26 Freq: Status: Active Protocol: Document 07/04/23 07:30 NM (Rec: 07/05/23 09:42 NM [id number]) Special Tests Lumbar Spine Special Tests Brice/Quadrant Test Results + Comments R 3D reproduces to L side Distraction Test Results + Slump Test Results + Comments bilateral Straight Leg Raise Test Results + Comments bilateral PT-OP-M Strength Start: 07/05/23 09:26 Freq: Status: Active Protocol: Document 08/07/23 07:31 NM (Rec: 08/07/23 08:17 NM [id number]) Hip Strength Hip Manual Muscle Testing Left Flexion (L2) 4+ Good+ Extension (S1) 4 Good Abduction 4- Good- Adduction 4+ Good+ External Rotation 4+ Good+ Internal Rotation 4+ Good+ Comments IR resisted reproduces 08/07/23: 4+/5 hip abd and ext, mild back pain with AROM hip ext PT-OP-Q Treatments Start: 07/05/23 09:26 Freq: Status: Active Protocol: Document 09/05/23 11:22 [facility] (Rec: 09/05/23 12:06 [facility] [id number]) Therapeutic Exercises Prone Exercises trunk extension Prone Exercise Name 65cm physioball - from knees Reps/Minutes 2x10 Comments cues for breathwork; painfree, from toes too challenging Sidelying Exercises lateral flexion Sidelying Exercise Name spinal lateral flexion w/ hip ER/IR-off plinth (basking seal) Side bilateral Reps/Minutes 2x10 Comments medium-hard; cued for UE form and LE range, pain free; R more challenging Standing Exercises side steps Side bilateral Resistance level 2 band at toes Equipment Used squat position Reps/Minutes 2x10 ft Comments min cues for foot clearance and form, vc breath modified pigeon stretch Standing Exercise Name leg in figure 4 elevated on table, slight trunk flexion Side bilateral Reps/Minutes 1x60 ea Comments positive feedback stretch Other Exercises hip stretching Other Exercise Name 1. hip flexor stretch, 2. Z sit with active IR via contract-relax Side bilateral Equipment Used 1. foot elevated on plinth Reps/Minutes 1. 60 ea, 2. 8 ea (in position for 2 min ea) w/ 3 hip ER then active IR Comments challenging IR, limited ROM, cued for slight WS, edu for contract-relax PT-OP-T Assessment and Plan Start: 07/05/23 09:26 Freq: Status: Active Protocol: Document 09/05/23 11:22 [facility] (Rec: 09/05/23 12:06 [facility] [id number]) Physical Therapy Assessment Goals Six Impairment return to work Short Term Goal (STG) Pt will report that he is able to perform at least 50% of job functions without increase in baseline pain 07/19/23: reports 85-90% of job function, but reports difficulty with sustained positioning 08/07/23: 95-100% (forcing L leg into WB with hip ER) STG Duration 6 weeks [employer] Goal (LTG) Pt will report that he is able to perform at least 75% of job functions without increase in baseline pain or if appropriate, pt will be referred to work conditioning in order to return to work 08/07/23: 95-100% LTG Duration 12 weeks Five Impairment ROM Impairment forward flexion test 10 from ground Short Term Goal (STG) Pt will be able to reach < 10 from the ground during forward trunk flexion test in order to demonstrate improvement in hamstring length and decrease neural tension. 08/07/23: 6, tight hamstrings but pain free STG Duration 6 weeks [employer] Goal (LTG) Pt will be able to reach < 6 from the ground during forward trunk flexion test in order to demonstrate improvement in hamstring length and decrease neural tension. 08/14/23: 4 from ground LTG Duration 12 weeks Four Impairment squats Impairment difficulty with maintaining squat position at work due to pain Short Term Goal (STG) Pt will be able to perform at least 10 squats without compensation or increase in baseline pain in order to perform necessary job requirements 08/07/23: 10 AROM w/o pain and improved form, goblet squat 10 # with cues for core bracing and to minimize breath holding STG Duration 6 weeks [employer] Goal (LTG) Pt will be able to perform at least 20 squats with resistance and without compensation or increase in baseline pain in order to perform necessary job requirements LTG Duration 12 weeks Three Impairment strength Impairment L hip ext 4/5 and abd 4-/5 MMT Short Term Goal (STG) Pt will improve L hip ext and abduction strength to at least 4+/5 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 08/07/23: 4+/5, slight back pain with hip extension STG Duration 6 weeks [employer] Goal (LTG) Pt will improve L hip ext and abduction strength to at least 5/5 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 LTG Duration 12 weeks Two Impairment strength, stabilization Impairment plank 8 seconds side plank, 10 seconds front plank on elbows Short Term Goal (STG) Pt will be able to perform a plank (full or modified) for at least 45 seconds without signs of instability or increase in baseline pain in order to demonstrate improved core strength for ADLs and work 08/07/23: 30 seconds before sides of instability, pain free 08/14/23: 42 seconds STG Duration 6 weeks NOT [employer] Goal (LTG) Pt will be able to perform a plank (full or modified) for at least 60 seconds without signs of instability or increase in baseline pain in order to demonstrate improved core strength for ADLs and work LTG Duration 12 weeks One Impairment HEP Impairment not performing HEP Short Term Goal (STG) Pt will report that he is performing HEP at least 2-3x/ wk in order to maximize progression with PT and promote independence with rehabilitation. 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 LTG Duration 12 weeks Assessment Summary Assessment Treatment focus on progressing hip mobility and lumbar strengthening, and pt tolerates full session without pain or change in baseline symptoms of bilateral hip soreness, possibly related to this morning's work positioning prior to PT. He continues to demonstrate improved awareness of breathwork and form with minimal cues for breath. He requires initial cues for upper extremity positioning with sidelying basking seal exercise, and initial cues for form with Z-sit; R>L hip IR tightness observed and reported by pt. Physical Therapy Plan Frequency and Duration Frequency of Treatment 1-2x/wk Duration of treatment (weeks) 12 Plan of Care Start Date 07/04/23 Plan of Care End Date 09/29/23 Therapeutic Interventions Therapeutic Interventions Balance Training,Gait Training ,Home Exercise Program,Joint Mobilizations,Manual Therapy, Neuromuscular Re-education, Orthotic/Prosthetic Management ,Patient/Caregiver Education, Self-Care/Home Management, Sensory Integration,Soft Tissue Mobilization,Taping, Therapeutic Activities, Therapeutic Exercises Modalities Cold Pack/Ice Massage,Electric Stimulation,Hot Packs, Traction- Mechanical, Ultrasound Other Therapeutic Interventions pelvic realignment Next Visit Focus/Plan Next Note Type Treatment Note Next Visit Plan Glute medius strength (side steps at toes), step ups 6-8 step, lumbar ext on ball, lateral flex at plinth Cont with glute and core strength: retrial lumbar ext on ball, eccentric vs SL bridge, side plank lift and lower, eccentric step back, step up, lateral step down, retrial SL RDL Cont with stretching HS, glutes, hip flexors, calves. Hip IR/ER mobility. Manual therapy as needed Progress core: side planks ( modified), full planks (add hip ext, abd as able) Focus on improving flexibility , flexion biased core. Avoid extension. stretching: hip ER manual: low back, glutes
--- NOTE | 2023-09-08 12:01 | PT.OTN ---
Current Diagnoses Other lack of coordination (09/08/23) Weakness (09/08/23) Strain of muscle, fascia and tendon of lower back, subsequent encounter (09/08/23) Physical Therapy Treatment Note PT-OP-A Visit Information Start: 07/05/23 09:26 Freq: Status: Active Protocol: Document 09/08/23 11:19 NM (Rec: 09/08/23 12:00 NM [id number]) Out-Patient Physical Therapy Visit Information Visit Information Visit Type Treatment Note Visit Note 2nd set of 12 visits 08/22 - Visit Start Time 11:19 Visit Stop Time 11:59 Visit Number 07/01 Evaluation Information Evaluation Date 07/04/23 PT-OP-B Current Condition Start: 07/05/23 09:26 Freq: Status: Active Protocol: Document 07/04/23 07:30 NM (Rec: 07/05/23 09:42 NM [id number]) Current Condition History of Current Condition Onset Date March 2023 Current Complaints pain, movement limits History of Current Condition Pt presents with a work injury from [email or web address]. He states that the injury was low back pain then now radiates from L side of hip to ankle. He had a muscle relaxer and a steroid, which helped. He has pain mostly after walking around or putting pressure on his L thigh. States that back pain is primarily gone, but his leg pain is the most problematic (resolved in 3.5 weeks). Pt was injured when lifting from a crouched position, hit his back against rudder and shifted his weight on his back; he felt pain immediately and dropped to the ground; he continued working. 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 For his job , he needs to be able to crouch (move small spaces), flexibility, lifting heavy objects (130-150#). He has pain with extending his leg from hip flexion. Prior Treatments and Tests Radiographs 05/2023: no acute bony abnormalities or degenerative changes Treatment Goals Patient/Caregiver Goals work w/o pain Current Functional Impairments (Reported) Functional Limitations- Mobility/Gait 2-3 hr walking Functional Limitations- Work/School 8-10 hrs for 5 days/wk Functional Limitations- Recreation/ unable to perform leg workouts Hobbies (cardio ok)- strength training (leg press, calf raises, leg extension) after a specific weight and reps, 3x/ wk; currently unable to workout Functional Limitations- Other Reports 80-85% unable to perform normal activities at worst PT-OP-C Subjective Start: 07/05/23 09:26 Freq: Status: Active Protocol: Document 09/08/23 11:19 NM (Rec: 09/08/23 12:00 NM [id number]) OP-PT Subjective Patient Comments Patient Comments Pt reports no pain or soreness . States overall only slight pain with weird work positions this week. Wants one more visit to decide if he wants to continue to finish PT. Reports that he has returned to the gym for cardio and core , has not tried lifting. PT-OP-E Functional Tests Start: 07/05/23 09:26 Freq: Status: Active Protocol: Document 07/04/23 07:30 NM (Rec: 07/05/23 09:42 NM [id number]) Functional Tests Other Forward Trunk Flexion Test Name of Test measured finger tip to floor Score 10 Comment increase in symptoms down legs PT-OP-F Manual Assessment Start: 07/05/23 09:26 Freq: Status: Active Protocol: Document 07/04/23 07:30 NM (Rec: 07/05/23 09:42 NM [id number]) Manual Assessments Soft Tissue Assessment Soft Tissue Mobility Assessment Increased hamstring tightness. Decreased hip flexor length. Increased tenderness of L hip and calf Joint Mobility Assessment Joint Mobility Assessment Hypomobility of lumbar spine, slight L deviation of lumbar spine. Limited hip mobility into flexion, decreased B ankle DF PT-OP-G Mobility & Gait Start: 07/05/23 09:26 Freq: Status: Active Protocol: Document 07/04/23 07:30 NM (Rec: 07/05/23 09:42 NM [id number]) OP Gait Assessment Gait Gait Assistance Required: Independent Distance (Feet) 150 Gait Deviations General Gait Pattern Antalgic,Lateral Trunk Lean Factors Limiting Gait Function Factors Limiting Gait Function Decreased Activity Tolerance, Limited Range of Motion,Pain Comments Gait Comments Demos R lateral trunk lean PT-OP-H Neuro Start: 07/05/23 09:26 Freq: Status: Active Protocol: Document 07/04/23 07:30 NM (Rec: 07/05/23 09:42 NM [id number]) Sensation Evaluation Comments Summary Comments BLE intact equally to light touch sensation Deep Tendon Reflex & Clonus Assessment Deep Tendon Reflex Bilateral Achilles Deep Tendon Reflex 1+ Diminished Bilateral Patellar Deep Tendon Reflex 2+ Normal PT-OP-J Posture/Palpation/Skin Start: 07/05/23 09:26 Freq: Status: Active Protocol: Document 07/04/23 07:30 NM (Rec: 07/05/23 09:42 NM [id number]) Posture Evaluation Position Standing Head/C-Spine Posture Forward Head L-Spine Posture Increased Lordosis,Shifted Right Pelvis Posture Anteriorly Tilted Weight Distribution Weight Shifted Right Hip Posture (L) Externally Rotated,(R) Externally Rotated Knee Posture (L) Genu Varus,(R) Genu Varus Palpation Assessment Location lumbar spine Palpation Findings Soft Tissue Tightness, Tenderness Palpation Details tenderness along L lateral spine, tightness of L lateral paraspinals No tenderness along midline spine Slight L deviation from midline along spine near L3 L leg Palpation Findings Edema,Tenderness Palpation Details tenderness along L calf in muscle belly tenderness along L glute/ piriformis, lateral hip PT-OP-K Range of Motion Start: 07/05/23 09:26 Freq: Status: Active Protocol: Document 08/07/23 07:31 NM (Rec: 08/07/23 08:23 NM [id number]) Lumbar Spine Range of Motion Lumbar Spine Active Percentage Flexion 75 Extension 100 Rotation Left 10 Rotation Right 6 Lateral Flexion Left 100 Lateral Flexion Right 100 ROM Limitations Soft Tissue Tightness Comments 10; tightness along L lateral leg with flexion 08/07/23: 6 from floor w/ flexion PT-OP-L Special Tests Start: 07/05/23 09:26 Freq: Status: Active Protocol: Document 07/04/23 07:30 NM (Rec: 07/05/23 09:42 NM [id number]) Special Tests Lumbar Spine Special Tests Brice/Quadrant Test Results + Comments R 3D reproduces to L side Distraction Test Results + Slump Test Results + Comments bilateral Straight Leg Raise Test Results + Comments bilateral PT-OP-M Strength Start: 07/05/23 09:26 Freq: Status: Active Protocol: Document 08/07/23 07:31 NM (Rec: 08/07/23 08:17 NM [id number]) Hip Strength Hip Manual Muscle Testing Left Flexion (L2) 4+ Good+ Extension (S1) 4 Good Abduction 4- Good- Adduction 4+ Good+ External Rotation 4+ Good+ Internal Rotation 4+ Good+ Comments IR resisted reproduces 08/07/23: 4+/5 hip abd and ext, mild back pain with AROM hip ext PT-OP-Q Treatments Start: 07/05/23 09:26 Freq: Status: Active Protocol: Document 09/08/23 11:19 NM (Rec: 09/08/23 12:00 NM [id number]) Therapeutic Exercises Prone Exercises trunk extension Prone Exercise Name 65cm physioball - from knees: 1. ext, 2. lateral flex Reps/Minutes 2x10 ea Comments pain free Standing Exercises step up Side bilateral Resistance AROM Equipment Used 6 > 8 Reps/Minutes 10 ea leg, ea step ht Comments improved form today, stable pelvis with self tactile RDL Standing Exercise Name 1. modified hip airplane, 2. SL RDL Side bilateral Resistance AROM Equipment Used B hand support on table, small hip ext ROM on non- stabilizing leg Reps/Minutes 1. 5 2. 8 ea Comments improved hinge, pain free at SIJ; L side weaker than R side modified pigeon stretch Standing Exercise Name leg in figure 4 elevated on table, slight trunk flexion Side bilateral Reps/Minutes 1x60 ea Comments positive feedback stretch Other Exercises hip stretching Other Exercise Name Z sit: 1. active ER contract, 2. active IR contract Side bilateral Equipment Used mat on floor Reps/Minutes 10 ea leg, ea direction Comments improved ROM but still very challenging PT-OP-T Assessment and Plan Start: 07/05/23 09:26 Freq: Status: Active Protocol: Document 09/08/23 11:19 NM (Rec: 09/08/23 12:00 NM [id number]) Physical Therapy Assessment Goals Six Impairment return to work Short Term Goal (STG) Pt will report that he is able to perform at least 50% of job functions without increase in baseline pain 07/19/23: reports 85-90% of job function, but reports difficulty with sustained positioning 08/07/23: 95-100% (forcing L leg into WB with hip ER) STG Duration 6 weeks MET Lay Out Worker Goal (LTG) Pt will report that he is able to perform at least 75% of job functions without increase in baseline pain or if appropriate, pt will be referred to work conditioning in order to return to work 08/07/23: 95-100% LTG Duration 12 weeks Five Impairment ROM Impairment forward flexion test 10 from ground Short Term Goal (STG) Pt will be able to reach < 10 from the ground during forward trunk flexion test in order to demonstrate improvement in hamstring length and decrease neural tension. 08/07/23: 6, tight hamstrings but pain free STG Duration 6 weeks MET Lay Out Worker Goal (LTG) Pt will be able to reach < 6 from the ground during forward trunk flexion test in order to demonstrate improvement in hamstring length and decrease neural tension. 08/14/23: 4 from ground 09/08/23: 4 from ground w/o pain or pulling LTG Duration 12 weeks MET Four Impairment squats Impairment difficulty with maintaining squat position at work due to pain Short Term Goal (STG) Pt will be able to perform at least 10 squats without compensation or increase in baseline pain in order to perform necessary job requirements 08/07/23: 10 AROM w/o pain and improved form, goblet squat 10 # with cues for core bracing and to minimize breath holding STG Duration 6 weeks MET Lay Out Worker Goal (LTG) Pt will be able to perform at least 20 squats with resistance and without compensation or increase in baseline pain in order to perform necessary job requirements LTG Duration 12 weeks Three Impairment strength Impairment L hip ext 4/5 and abd 4-/5 MMT Short Term Goal (STG) Pt will improve L hip ext and abduction strength to at least 4+/5 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 08/07/23: 4+/5, slight back pain with hip extension STG Duration 6 weeks MET Lay Out Worker Goal (LTG) Pt will improve L hip ext and abduction strength to at least 5/5 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 LTG Duration 12 weeks Two Impairment strength, stabilization Impairment plank 8 seconds side plank, 10 seconds front plank on elbows Short Term Goal (STG) Pt will be able to perform a plank (full or modified) for at least 45 seconds without signs of instability or increase in baseline pain in order to demonstrate improved core strength for ADLs and work 08/07/23: 30 seconds before sides of instability, pain free 08/14/23: 42 seconds STG Duration 6 weeks NOT MET Lay Out Worker Goal (LTG) Pt will be able to perform a plank (full or modified) for at least 60 seconds without signs of instability or increase in baseline pain in order to demonstrate improved core strength for ADLs and work LTG Duration 12 weeks One Impairment HEP Impairment not performing HEP Short Term Goal (STG) Pt will report that he is performing HEP at least 2-3x/ wk in order to maximize progression with PT and promote independence with rehabilitation. 08/07/23: 3-4x/wk STG Duration 6 weeks MET Lay Out Worker Goal (LTG) Pt will report compliance with HEP at least 3x/wk in order to promote independence and transition into maintenance program after discharge from PT. LTG Duration 12 weeks Assessment Summary Assessment Pt tolerated session well. Emphasis on hip mobility, lumbar strength, and core stabilization. Pt able to perform all lumbar extension and lateral flexion without any back pain or soreness. Pt also demos improved end range hip mobility, able to perform slight active IR and ER compared to in previous sessions. Reviewed step ups to promote lumbopelvic mobility. Improved stability today, especially with self-tactile cue at hips. Able to progress to SL RDL without any SIJ pain but able to perform; only challenged by balance. Pt reports wanting to possibly discharge next session because doing better, has been pain free. Pt would benefit from skilled PT for core/lumbar strengthening and flexibilty training in order to improve ability to perform work tasks and decrease risk of re-injury Physical Therapy Plan Frequency and Duration Frequency of Treatment 1-2x/wk Duration of treatment (weeks) 12 Plan of Care Start Date 07/04/23 Plan of Care End Date 09/29/23 Therapeutic Interventions Therapeutic Interventions Balance Training,Gait Training ,Home Exercise Program,Joint Mobilizations,Manual Therapy, Neuromuscular Re-education, Orthotic/Prosthetic Management ,Patient/Caregiver Education, Self-Care/Home Management, Sensory Integration,Soft Tissue Mobilization,Taping, Therapeutic Activities, Therapeutic Exercises Modalities Cold Pack/Ice Massage,Electric Stimulation,Hot Packs, Traction- Mechanical, Ultrasound Other Therapeutic Interventions pelvic realignment Next Visit Focus/Plan Next Note Type Progress Note Next Visit Plan trial plank w/ ext and abd, review SL RDL; good maintenance program if dc Glute medius strength (side steps at toes), step ups 6-8 step, lumbar ext on ball, lateral flex at plinth Cont with glute and core strength: retrial lumbar ext on ball, eccentric vs SL bridge, side plank lift and lower, eccentric step back, step up, lateral step down, retrial SL RDL Cont with stretching HS, glutes, hip flexors, calves. Hip IR/ER mobility. Manual therapy as needed Progress core: side planks ( modified), full planks (add hip ext, abd as able) Focus on improving flexibility , flexion biased core. Avoid extension. stretching: hip ER manual: low back, glutes
--- NOTE | 2023-09-14 12:52 | PT.OTN ---
Current Diagnoses Other lack of coordination (09/14/23) Weakness (09/14/23) Strain of muscle, fascia and tendon of lower back, subsequent encounter (09/14/23) Physical Therapy Treatment Note PT-OP-A Visit Information Start: 07/05/23 09:26 Freq: Status: Active Protocol: Document 09/14/23 07:30 NM (Rec: 09/14/23 08:15 NM [id number]) Out-Patient Physical Therapy Visit Information Visit Information Visit Type Progress Note Visit Note 2nd set of 12 visits 08/22 - Visit Start Time 07:35 Visit Stop Time 08:15 Visit Number 08/01 Evaluation Information Evaluation Date 07/04/23 PT-OP-B Current Condition Start: 07/05/23 09:26 Freq: Status: Active Protocol: Document 07/04/23 07:30 NM (Rec: 07/05/23 09:42 NM [id number]) Current Condition History of Current Condition Onset Date March 2023 Current Complaints pain, movement limits History of Current Condition Pt presents with a work injury from [email or web address]. He states that the injury was low back pain then now radiates from L side of hip to ankle. He had a muscle relaxer and a steroid, which helped. He has pain mostly after walking around or putting pressure on his L thigh. States that back pain is primarily gone, but his leg pain is the most problematic (resolved in 3.5 weeks). Pt was injured when lifting from a crouched position, hit his back against rudder and shifted his weight on his back; he felt pain immediately and dropped to the ground; he continued working. 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 For his job , he needs to be able to crouch (move small spaces), flexibility, lifting heavy objects (130-150#). He has pain with extending his leg from hip flexion. Prior Treatments and Tests Radiographs 05/2023: no acute bony abnormalities or degenerative changes Treatment Goals Patient/Caregiver Goals work w/o pain Current Functional Impairments (Reported) Functional Limitations- Mobility/Gait 2-3 hr walking Functional Limitations- Work/School 8-10 hrs for 5 days/wk Functional Limitations- Recreation/ unable to perform leg workouts Hobbies (cardio ok)- strength training (leg press, calf raises, leg extension) after a specific weight and reps, 3x/ wk; currently unable to workout Functional Limitations- Other Reports 80-85% unable to perform normal activities at worst PT-OP-C Subjective Start: 07/05/23 09:26 Freq: Status: Active Protocol: Document 09/14/23 07:30 NM (Rec: 09/14/23 08:15 NM [id number]) OP-PT Subjective Patient Comments Patient Comments Pt reports occasional discomfort after being in weird crouching positions or sitting with legs hanging over something. Pt is wanting to be finished today. He reports more flexibility, less pain, improvement in strength. Pt states that there is nothing else that he feels like he needs to address. PT-OP-E Functional Tests Start: 07/05/23 09:26 Freq: Status: Active Protocol: Document 07/04/23 07:30 NM (Rec: 07/05/23 09:42 NM [id number]) Functional Tests Other Forward Trunk Flexion Test Name of Test measured finger tip to floor Score 10 Comment increase in symptoms down legs PT-OP-F Manual Assessment Start: 07/05/23 09:26 Freq: Status: Active Protocol: Document 07/04/23 07:30 NM (Rec: 07/05/23 09:42 NM [id number]) Manual Assessments Soft Tissue Assessment Soft Tissue Mobility Assessment Increased hamstring tightness. Decreased hip flexor length. Increased tenderness of L hip and calf Joint Mobility Assessment Joint Mobility Assessment Hypomobility of lumbar spine, slight L deviation of lumbar spine. Limited hip mobility into flexion, decreased B ankle DF PT-OP-G Mobility & Gait Start: 07/05/23 09:26 Freq: Status: Active Protocol: Document 07/04/23 07:30 NM (Rec: 07/05/23 09:42 NM [id number]) OP Gait Assessment Gait Gait Assistance Required: Independent Distance (Feet) 150 Gait Deviations General Gait Pattern Antalgic,Lateral Trunk Lean Factors Limiting Gait Function Factors Limiting Gait Function Decreased Activity Tolerance, Limited Range of Motion,Pain Comments Gait Comments Demos R lateral trunk lean PT-OP-H Neuro Start: 07/05/23 09:26 Freq: Status: Active Protocol: Document 07/04/23 07:30 NM (Rec: 07/05/23 09:42 NM [id number]) Sensation Evaluation Comments Summary Comments BLE intact equally to light touch sensation Deep Tendon Reflex & Clonus Assessment Deep Tendon Reflex Bilateral Achilles Deep Tendon Reflex 1+ Diminished Bilateral Patellar Deep Tendon Reflex 2+ Normal PT-OP-J Posture/Palpation/Skin Start: 07/05/23 09:26 Freq: Status: Active Protocol: Document 07/04/23 07:30 NM (Rec: 07/05/23 09:42 NM [id number]) Posture Evaluation Position Standing Head/C-Spine Posture Forward Head L-Spine Posture Increased Lordosis,Shifted Right Pelvis Posture Anteriorly Tilted Weight Distribution Weight Shifted Right Hip Posture (L) Externally Rotated,(R) Externally Rotated Knee Posture (L) Genu Varus,(R) Genu Varus Palpation Assessment Location lumbar spine Palpation Findings Soft Tissue Tightness, Tenderness Palpation Details tenderness along L lateral spine, tightness of L lateral paraspinals No tenderness along midline spine Slight L deviation from midline along spine near L3 L leg Palpation Findings Edema,Tenderness Palpation Details tenderness along L calf in muscle belly tenderness along L glute/ piriformis, lateral hip PT-OP-K Range of Motion Start: 07/05/23 09:26 Freq: Status: Active Protocol: Document 09/14/23 07:30 NM (Rec: 09/14/23 08:15 NM [id number]) Lumbar Spine Range of Motion Lumbar Spine Active Percentage Flexion 100 Extension 100 Rotation Left 10 Rotation Right 10 Lateral Flexion Left 100 Lateral Flexion Right 100 ROM Limitations Soft Tissue Tightness Comments 10; tightness along L lateral leg with flexion 08/07/23: 6 from floor w/ flexion 09/14/23: 4 from floor w/ flexion Hip Goniometric Range of Motion Hip Left Flexion w/Knee Flexed 110 Internal Rotation 45 External Rotation 45 Comments 140 deg hamstring length evaluation: 30 deg ER and IR Right Flexion w/Knee Flexed 105 Internal Rotation 30 External Rotation 40 Comments 140 deg hamstring length evaluation: 25 deg IR, 35 deg ER PT-OP-L Special Tests Start: 07/05/23 09:26 Freq: Status: Active Protocol: Document 07/04/23 07:30 NM (Rec: 07/05/23 09:42 NM [id number]) Special Tests Lumbar Spine Special Tests Brice/Quadrant Test Results + Comments R 3D reproduces to L side Distraction Test Results + Slump Test Results + Comments bilateral Straight Leg Raise Test Results + Comments bilateral PT-OP-M Strength Start: 07/05/23 09:26 Freq: Status: Active Protocol: Document 09/14/23 07:30 NM (Rec: 09/14/23 08:15 NM [id number]) Hip Strength Hip Manual Muscle Testing Left Flexion (L2) 5 Normal Extension (S1) 5 Normal Abduction 5 Normal Adduction 5 Normal External Rotation 5 Normal Internal Rotation 5 Normal Comments IR resisted reproduces 08/07/23: 4+/5 hip abd and ext, mild back pain with AROM hip ext 09/14/23: 5/5 for all, pain free Right Flexion (L2) 5 Normal Extension (S1) 5 Normal Abduction 5 Normal Adduction 5 Normal External Rotation 5 Normal Internal Rotation 5 Normal PT-OP-Q Treatments Start: 07/05/23 09:26 Freq: Status: Active Protocol: Document 09/14/23 07:30 NM (Rec: 09/14/23 08:15 NM [id number]) Therapeutic Exercises Prone Exercises plank Prone Exercise Name 1. for time (standard plank), 2. with hip ext Side bilateral Reps/Minutes 1. 60, 2. 2x10 ea leg Comments pain free; no instability w/ plank Sidelying Exercises side plank Sidelying Exercise Name modified with hip abduction Side bilateral Equipment Used mat on floor Reps/Minutes 2x10 ea Comments prn cues to keep leg behind pt Standing Exercises RDL Standing Exercise Name 1. modified hip airplane, 2. SL RDL Side bilateral Resistance AROM Equipment Used B hand support on table, small hip ext ROM on non- stabilizing leg Reps/Minutes 1. 5, 2. 2x5 ea Comments pain free, L more challenging squat Standing Exercise Name crate with 30# > 40# Side bilateral Resistance plates Reps/Minutes 10 w/ 30#, 10 w/ 40# Comments pain free; good form Other Exercises quadruped Other Exercise Name IR rock back Reps/Minutes 10 with 5 hold Comments d/c after 10 due to knee discomfort hip stretching Other Exercise Name 1. Z sit, 2. active IR contraction Side bilateral Reps/Minutes 1. 60 ea, 2. 10 Comments improved ROM PT-OP-T Assessment and Plan Start: 07/05/23 09:26 Freq: Status: Active Protocol: Document 09/14/23 07:30 NM (Rec: 09/14/23 08:15 NM [id number]) Physical Therapy Assessment Goals Six Impairment return to work Short Term Goal (STG) Pt will report that he is able to perform at least 50% of job functions without increase in baseline pain 07/19/23: reports 85-90% of job function, but reports difficulty with sustained positioning 08/07/23: 95-100% (forcing L leg into WB with hip ER) STG Duration 6 weeks MET Hyperbaric Tech Goal (LTG) Pt will report that he is able to perform at least 75% of job functions without increase in baseline pain or if appropriate, pt will be referred to work conditioning in order to return to work 08/07/23: 95-100% 09/14/23: 100% LTG Duration 12 weeks MET Five Impairment ROM Impairment forward flexion test 10 from ground Short Term Goal (STG) Pt will be able to reach < 10 from the ground during forward trunk flexion test in order to demonstrate improvement in hamstring length and decrease neural tension. 08/07/23: 6, tight hamstrings but pain free STG Duration 6 weeks MET Hyperbaric Tech Goal (LTG) Pt will be able to reach < 6 from the ground during forward trunk flexion test in order to demonstrate improvement in hamstring length and decrease neural tension. 08/14/23: 4 from ground 09/14/23, 09/08/23: 4 from ground w/o pain or pulling LTG Duration 12 weeks MET Four Impairment squats Impairment difficulty with maintaining squat position at work due to pain Short Term Goal (STG) Pt will be able to perform at least 10 squats without compensation or increase in baseline pain in order to perform necessary job requirements 08/07/23: 10 AROM w/o pain and improved form, goblet squat 10 # with cues for core bracing and to minimize breath holding STG Duration 6 weeks MET Prison Goal (LTG) Pt will be able to perform at least 20 squats with resistance and without compensation or increase in baseline pain in order to perform necessary job requirements 09/14/23: able to perform 20 with 30-40# without pain or compensation LTG Duration 12 weeks MET Three Impairment strength Impairment L hip ext 4/5 and abd 4-/5 MMT Short Term Goal (STG) Pt will improve L hip ext and abduction strength to at least 4+/5 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 08/07/23: 4+/5, slight back pain with hip extension STG Duration 6 weeks MET Prison Goal (LTG) Pt will improve L hip ext and abduction strength to at least 5/5 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 09/14/23: 5/5 MMT for all hip strength B LTG Duration 12 weeks MET Two Impairment strength, stabilization Impairment plank 8 seconds side plank, 10 seconds front plank on elbows Short Term Goal (STG) Pt will be able to perform a plank (full or modified) for at least 45 seconds without signs of instability or increase in baseline pain in order to demonstrate improved core strength for ADLs and work 08/07/23: 30 seconds before sides of instability, pain free 08/14/23: 42 seconds STG Duration 6 weeks NOT MET Hyperbaric Tech Goal (LTG) Pt will be able to perform a plank (full or modified) for at least 60 seconds without signs of instability or increase in baseline pain in order to demonstrate improved core strength for ADLs and work 09/14/23: able to maintain 60 plank without signs of instability or pain LTG Duration 12 weeks MET One Impairment HEP Impairment not performing HEP Short Term Goal (STG) Pt will report that he is performing HEP at least 2-3x/ wk in order to maximize progression with PT and promote independence with rehabilitation. 08/07/23: 3-4x/wk STG Duration 6 weeks MET Hyperbaric Tech Goal (LTG) Pt will report compliance with HEP at least 3x/wk in order to promote independence and transition into maintenance program after discharge from PT. 09/14/23: 2-3x/wk LTG Duration 12 weeks MET Progress Towards Goals Progress Towards Goals Goals Met Progress Comments All goals met Assessment Summary Assessment Pt tolerated session well, demonstrating significant improvement in core stability and pain management. Able to maintain full plank for 60 seconds, whereas pt unable to perform 30 sec one month ago. Able to progress to plank and side plank with functional hip ext and abd. Pt demonstrates good form without compensations during squats. Session emphasis on creating maintenance program for pt to continue with core/trunk and hip strengthening, in addition to flexibility training. Still challenged with hip IR ROM but has significant improvements in mobility since evaluation. Physical Therapy Plan Frequency and Duration Frequency of Treatment 1-2x/wk Duration of treatment (weeks) 12 Plan of Care Start Date 07/04/23 Plan of Care End Date 09/29/23 Therapeutic Interventions Therapeutic Interventions Balance Training,Gait Training ,Home Exercise Program,Joint Mobilizations,Manual Therapy, Neuromuscular Re-education, Orthotic/Prosthetic Management ,Patient/Caregiver Education, Self-Care/Home Management, Sensory Integration,Soft Tissue Mobilization,Taping, Therapeutic Activities, Therapeutic Exercises Modalities Cold Pack/Ice Massage,Electric Stimulation,Hot Packs, Traction- Mechanical, Ultrasound Other Therapeutic Interventions pelvic realignment Discharge Physical Therapy Discharge Reasons Goals Met Discharge Comments All goals met. Pt requesting discharge today after discussion with PT about progress and goals. Pt also pain free Next Visit Focus/Plan Next Visit Plan Discharge from PT
== END 2023-11-07 08:38 | disposition home or self-care (01) ==
LOC: PHYS 07:30
PROVIDERS: Family Provider Family Medicine; PCP Family Medicine; Referring Provider Family Medicine; Visit Provider Family Medicine
DX: S39.012D Strain of muscle, fascia and tendon of lower back, subsequent encounter (principal); R53.1 Weakness; R27.8 Other lack of coordination
CPT/HCPCS: 97110; 97112; 97140; 97162; 97530; 97535

== ENCOUNTER → 2024-03-03 09:17 | Outpatient (CLI) | payer OTHER, SELFPAY ==
--- NOTE | 2024-03-03 | DI.MRI.S_ITS ---
PROCEDURE: MR LUMBAR SPINE WO CON INDICATIONS: BACK PAIN W RADICULOPATHY TECHNIQUE: Noncontrast sagittal T1 spin echo and T2 fast echo, sagittal STIR, and T2 fast spin echo through the lumbar spine. In cases with scoliosis, additional coronal T2 fast spin echo may be performed. COMPARISON: None. FINDINGS: Image quality: Excellent. Alignment and Curvature: There is normal bony alignment. Bone Marrow: Marrow is of normal overall signal. No acute vertebral body compression fractures. Spinal Cord: Conus medullaris terminates at the T12-L1 level. Visualized cord demonstrates normal signal and size. Paraspinous Soft Tissues: No paravertebral masses. T12-L1: Normal appearance. L1-L2: Normal appearance. L2-L3: Normal appearance. L3-L4: Normal appearance. L4-L5: Large relatively broad-based inferior disc extrusion, eccentric to the left, measuring 2.4 x 1.6 x 0.8 cm, resulting in impingement on left-sided nerve roots and moderate to severe canal stenosis. Reference sagittal T2 image 11 of series 2 and axial T2 image 29 of series 6. Early facet hypertrophy. L5-S1: Mild disc bulge. Early facet hypertrophy. No canal stenosis or foraminal stenosis. IMPRESSION: A large relatively broad-based inferior disc extrusion eccentric to the left at L4-L5 results in impingement on left-sided nerve roots and moderate to severe canal stenosis. Dictated by: Sal Zeng M.D. on 03/04/2024 at 9:26 Approved by: Sal Zeng M.D. on 03/04/2024 at 9:30
== END ==
PROVIDERS: Family Provider Family Medicine; PCP Family Medicine; Referring Provider Family Medicine; Visit Provider Family Medicine
DX: M48.061 Spinal stenosis, lumbar region without neurogenic claudication (principal); M54.10 Radiculopathy, site unspecified; M51.26 Other intervertebral disc displacement, lumbar region; S39.001A Unspecified injury of muscle, fascia and tendon of abdomen, initial encounter
CPT/HCPCS: 72148

== ENCOUNTER → 2024-11-19 19:09 | Outpatient (ROUT) | payer BC, SELFPAY | PROVIDERS: Family Provider Family Medicine; PCP Family Medicine; Visit Provider Dermatology | DX: Z79.899 Other long term (current) drug therapy (principal); L73.8 Other specified follicular disorders; L03.90 Cellulitis, unspecified | CPT/HCPCS: 87070; 87075; 87102; 87205 ==